=== PATIENT | male | born 1965 ===

== ENCOUNTER 2017-05-16 22:00 | Inpatient (IN) | payer MEDICARE, MEDICAID ==
[2017-05-16 22:10] VITALS: BMI 24.7
--- NOTE | 2017-05-16 22:30 | ED PDOC ---
Arrival/HPI - General Chief Complaint: Psychiatric Evaluation Time Seen by Provider: 05/16/17 22:14 Historian: Family - History of Present Illness Narrative History of Present Illness (Text): 05/16/17 22:26 Neptali Chase is a 51 year old male, with a history of seizures, dementia, and psychosis, presents to the emergency department for evaluation of bizarre behavior. According to family, patient as been acting bizarrely for past few days and agitated at times. Patient has elected not to speak, and has done this in the past. Denies fever, chills, chest pain, shortness of breath, nausea, vomiting, history of trauma, urinary symptoms, or any other complaints at this time. Time/Duration: < week (few days ) Symptom Onset: Gradual Severity Level: Mild Activities at Onset: Light Past Medical History - Provider Review Nursing Documentation Reviewed: Yes - Infectious Disease Hx of Infectious Diseases: None - Tetanus Immunization Tetanus Immunization: Unknown - Cardiac Hx Hypertension: Yes - Pulmonary Hx Tuberculosis: No - Neurological Hx Seizures: Yes - HEENT Hx HEENT Disorder: No - Renal Hx Renal Disorder: No - Endocrine/Metabolic Hx Endocrine Disorders: No - Hematological/Oncological Hx Cancer: No - Integumentary Hx Dermatological Disorder: No - Musculoskeletal/Rheumatological Hx Musculoskeletal Disorders: No Hx Falls: No - Gastrointestinal Hx Gastrointestinal Disorders: No - Genitourinary/Gynecological Hx Sexually Transmitted Diseases: No - Psychiatric Hx Depression: Yes Hx Substance Use: No - Surgical History Other/Comment: Hx of kidney sx - Anesthesia Hx Anesthesia: Yes Hx Anesthesia Reactions: No - Suicidal Assessment Feels Threatened In Home Enviroment: No Family/Social History - Physician Review Nursing Documentation Reviewed: Yes Family/Social History: No Known Family HX Smoking Status: Unknown If Ever Smoked Hx Alcohol Use: (pt is disoriented and unable to answers) Hx Substance Use: No Allergies/Home Meds Allergies/Adverse Reactions: Allergies No Known Allergies Allergy (Verified 09/27/16 19:17) Home Medications: Home Meds Medication Instructions Recorded Confirmed Lacosamide [Vimpat] 1 tab PO BID 05/16/17 05/16/17 Review of Systems - Physician Review All systems were reviewed & negative as marked: Yes - Review of Systems Constitutional: Normal. absent: Fatigue, Fevers Respiratory: Normal. absent: SOB, Cough, Sputum Cardiovascular: Normal. absent: Chest Pain, Palpitations Neurological: Normal. absent: Headache, Dizziness Psychiatric: Other (bizarre behavior, occationally agitated. ) Physical Exam Vital Signs Reviewed: Yes Vital Signs Temp Pulse Resp BP Pulse Ox 05/17/17 05:33 78 14 111/74 98 05/17/17 01:15 81 14 119/74 97 05/16/17 22:15 96.9 F L 142 H 22 179/119 H 97 Temperature: Afebrile Blood Pressure: Hypertensive Pulse: Tachycardic Respiratory Rate: Normal Appearance: Positive for: Non-Toxic Pain Distress: None Mental Status: Positive for: Agitated (agitated when confronted ) - Systems Exam Head: Present: Atraumatic, Normocephalic Pupils: Present: PERRL Extroacular Muscles: Present: EOMI Conjunctiva: Present: Normal Mouth: Present: Moist Mucous Membranes Neck: Present: Normal Range of Motion Respiratory/Chest: Present: Clear to Auscultation, Good Air Exchange. No: Respiratory Distress, Accessory Muscle Use Cardiovascular: Present: Regular Rate and Rhythm, Normal S1, S2. No: Murmurs Abdomen: Present: Normal Bowel Sounds. No: Tenderness, Distention, Peritoneal Signs Upper Extremity: Present: Normal Inspection. No: Cyanosis, Edema Lower Extremity: Present: Normal Inspection. No: Edema Neurological: Present: GCS=15, CN II-XII Intact, Speech Normal, Motor Func Grossly Intact, Normal Sensory Function Skin: Present: Warm, Dry, Normal Color. No: Rashes Psychiatric: Present: Alert, Oriented x 3, Agitated Medical Decision Making ED Course and Treatment: 05/16/17 22:34 Impression: A 51 year old male who presents to the emergency department for evaluation of bizarre behavior. Differential Diagnosis: Selective mutism vs. psychosis vs. dementia Plan: -- EKG -- Labs -- Alcohol level -- Drug Screen -- CXR -- Ativan -- Haldol -- Urinalysis Progress Notes: 05/17/17 01:38 Patient evaluated by PES, and case discussed with Dr. Slater. Patient to be admitted to the psychiatric unit, but requires signature from . However, is not in the ed to sign for the patient. Patient to be held in the ed until the can sign for admission. EKG interpreted by me: NSR @ 93bpm. No acute changes 05/17/17 06:29 Pt. was re evaluated by JEANINE Carr.Pt. signed in for admission as per PES. - Lab Interpretations Lab Results: 05/17/17 00:00 05/17/17 00:00 Lab Results 05/17/17 00:22: Urine Opiates Screen Negative, Urine Methadone Screen Negative, Ur Barbiturates Screen Negative, Ur Phencyclidine Scrn Negative, Ur Amphetamines Screen Negative, U Benzodiazepines Scrn Negative, U Oth Cocaine Metabols Negative, U Cannabinoids Screen Negative 05/17/17 00:22: Urine Color Yellow, Urine Appearance Sl cloudy, Urine pH 5.5, Ur Specific [place] >= 1.030, Urine Protein 100 H, Urine Glucose (UA) Negative, Urine Ketones Trace H, Urine Blood Negative, Urine Nitrate Negative, Urine Bilirubin Negative, Urine Urobilinogen 0.2, Ur Leukocyte Esterase Negative, Urine RBC 0 - 2, Urine WBC 0 - 2, Ur Epithelial Cells 0 - 2, Amorphous Sediment Few 05/17/17 00:00: Alcohol, Quantitative < 10 05/17/17 00:00: Sodium 142, Potassium 3.3 L, Chloride 110 H, Carbon Dioxide 19 L , Anion Gap 16, BUN 14, Creatinine 0.8, Est GFR ( Amer) > 60, Est GFR ( Non-Af Amer) > 60, Random Glucose 127 H, Calcium 9.5, Total Bilirubin 1.4 H, AST 38, ALT 64 H, Alkaline Phosphatase 103, Total Protein 8.0, Albumin 4.6, Globulin 3.4, Albumin/Globulin Ratio 1.4 05/17/17 00:00: WBC 10.2, RBC 4.85, Hgb 14.7, Hct 41.7 L, MCV 86.0, MCH 30.3, MCHC 35.3, RDW 13.4, Plt Count 203, MPV 9.5, Gran % 73.1 H, Lymph % (Auto) 18.6 L, [place] % (Auto) 8.0 H, Eos % (Auto) 0.2 L, Baso % (Auto) 0.1, Gran # 7.45 H, Lymph # 1.9, Cross # 0.8 H, Eos # 0.0, Baso # 0.01 I have reviewed the lab results: Yes - RAD Interpretation Radiology Orders: 05/16/17 22:30 CHEST PORTABLE [RAD] Stat - EKG Interpretation Interpreted by ED Physician: Yes Type: 12 lead EKG - Medication Orders Current Medication Orders: Discontinued Medications Haloperidol Lactate (Haldol) 5 mg IM STAT STA PRN Reason: Protocol Stop: 05/16/17 22:30 Last Admin: 05/16/17 23:22 Dose: 5 mg Lorazepam (Ativan) 2 mg IM ONCE ONE Stop: 05/16/17 22:30 Last Admin: 05/16/17 23:22 Dose: 2 mg - Scribe Statement The provider has reviewed the documentation as recorded by the Bev He Provider Attestation: All medical record entries made by the Bev were at my direction and personally dictated by me. I have reviewed the chart and agree that the record accurately reflects my personal performance of the history, physical exam, medical decision making, and the department course for this patient. I have also personally directed, reviewed, and agree with the discharge instructions and disposition. Disposition/Present on Arrival - Present on Arrival Any Indicators Present on Arrival: No History of DVT/PE: No History of Uncontrolled Diabetes: No Urinary Catheter: No History of Decub. Ulcer: No History Surgical Site Infection Following: None - Disposition Have Diagnosis and Disposition been Completed?: Yes Diagnosis: Depression, Cognitive and behavioral changes, Seizure disorder Disposition: HOSPITALIZED Disposition Time: 06:31 Patient Plan: Admission Condition: STABLE Referrals: Agusto Mai MD [Primary Care Provider] - Follow up with primary
[2017-05-17 00:08] LABS: BASO # 0.01 K/mm3 (0.0-2.0); BASO % 0.1 % (0.0-3.0); EOS % 0.2 % (1.5-5.0); GRAN # 7.45 (1.4-6.5); GRAN % 73.1 % (50.0-68.0); HEMOGLOBIN 14.7 gm/dL (14.0-18.0); LYMPH # 1.9 (1.2-3.4); LYMPH % 18.6 % (22.0-35.0); MEAN CORPUSCULAR HEMOGLOBIN 30.3 pg (25.0-35.0); MEAN CORPUSCULAR HGB CONC 35.3 g/dl (31.0-37.0); MEAN PLATELET VOLUME 9.5 fl (7.0-11.0); MONO # 0.8 (0.1-0.6); PLATELET COUNT 203 10^3/uL (120.0-450.0); RBC 4.85 10^6/uL (3.5-6.1); RED CELL DISTRIBUTION WIDTH 13.4 % (11.5-14.5); WHITE BLOOD COUNT 10.2 10^3/ul (4.5-11.0)
[2017-05-17 00:18] LABS: ALB/GLOB RATIO 1.4 (1.1-1.8); ALBUMIN 4.6 g/dL (3.0-4.8); ALT/SGPT 64 U/L (7-56); AST/SGOT 38 U/L (15-59); BLOOD UREA NITROGEN 14 mg/dL (7-21); CALCIUM 9.5 mg/dL (8.4-10.5); GFR AFRICAN-AMERICAN > 60; GFR NON-AFRICAN AMERICAN > 60
[2017-05-17 01:08] LABS: PH,URINE 5.5 (4.7-8.0); URINE BILIRUBIN NEGATIVE (NEGATIVE); URINE BLOOD NEGATIVE (NEGATIVE); URINE GLUCOSE (UA) NEGATIVE (NEGATIVE); URINE LEUKOCYTE ESTERASE NEGATIVE Leu/uL (NEGATIVE); URINE NITRATE NEGATIVE (NEGATIVE); URINE PROTEIN 100 mg/dL (<30 mg/dL); URINE UROBILINOGEN 0.2 E.U./dL (<1 E.U./dL)
[2017-05-17 01:19] LABS: BARBITURATES, UR NEGATIVE (NEGATIVE); BENZODIAZEPINES, UR NEGATIVE (NEGATIVE); OPIATES, UR NEGATIVE (NEGATIVE); PHENCYCLIDINE, UR NEGATIVE (NEGATIVE)
[2017-05-17 01:25] LABS: URINE APPEARANCE SL CLOUDY (CLEAR); URINE COLOR YELLOW (YELLOW)
[2017-05-17 01:31] LABS: URINE EPITHELIAL CELLS 0 - 2 /hpf (0-5); URINE RBC 0 - 2 /hpf (0-2); URINE WBC 0 - 2 /hpf (0-6)
[2017-05-17 01:32] LABS: URINE AMORPHOUS SEDIMENT FEW
[2017-05-17 07:37] VITALS: O2SAT 97
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
--- NOTE | 2017-05-17 08:46 | CARD ---
APPROVED REPORT EKG Measurement Heart [id number] <Conclusion> Normal sinus rhythm Minimal voltage criteria for LVH, may be normal variant Borderline ECG
--- NOTE | 2017-05-17 10:57 | RAD ---
HISTORY: medical clearance COMPARISON: No prior. FINDINGS: LUNGS: No active pulmonary disease. PLEURA: No significant pleural effusion identified, no pneumothorax apparent. CARDIOVASCULAR: Normal. OSSEOUS STRUCTURES: No significant abnormalities. VISUALIZED UPPER ABDOMEN: Normal. OTHER FINDINGS: None. IMPRESSION: No active disease.
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
[2017-05-18 08:55] LABS: GLUCOSE,FASTING 102 mg/dL (65-110); HDL CHOLESTEROL 27 mg/dL (29-60)
[2017-05-18 09:05] LABS: LDL CHOLESTEROL 162 mg/dL (0-129)
--- NOTE | 2017-05-18 09:08 | CP.PCM.CON ---
History of Present Illness - History of Present Illness History of Present Illness: Pt is being seen for evaluation for HTN and Dyslipidemia. He has no CP/SOB/N/V. He is admitted to the psych until for evaluation. Eating ok. Able to ambulate. Review of Systems - Review of Systems Systems not reviewed;Unavailable: Psychotic - Constitutional Constitutional: Fatigue, Lethargy. absent: Fever, Night Sweats, Sleep Apnea, Weight Gain - EENT Eyes: absent: Diplopia, Discharge, Dry Eye, Photophobia Ears: absent: Disequilibrium, Dizziness Nose/Mouth/Throat: absent: Nasal Discharge, Bleeding Gums, Change in Voice, Dry Mouth, Dysphagia - Cardiovascular Cardiovascular: absent: Claudication, Edema, Irregular Heart Rhythm, Leg Ulcers , Orthopnea - Respiratory Respiratory: absent: Cough, Dyspnea on Exertion - Gastrointestinal Gastrointestinal: absent: Abdominal Pain, Bloating, Early Satiety, Heartburn, Hematemesis, Temesmus - Genitourinary Genitourinary: absent: Hematuria, Urinary Incontinence, Urinary Frequency, Freq UTI, Bladder Distension - Musculoskeletal Musculoskeletal: absent: Atrophy, Loss of Height, Muscle Cramps, Muscle Weakness , Myalgias, Neck Pain - Integumentary Integumentary: absent: Hirsutism, Lesions, New Lesions, Pruritus, Skin Ulcer, Wounds - Neurological Neurological: absent: Convulsions, Disequilibrium, Numbness, Lack of Coordination, Loss of Vision, Radicular Pain, Restless Legs - Psychiatric Psychiatric: Behavioral Changes, Difficulty Concentrating, Irritability. absent : Homicidal Ideation, Panic Attacks, Paranoia, Suicidal Ideation - Endocrine Endocrine: absent: Cold Intolorance, Excessive Sweating, Fatigue, Polyphagia - Hematologic/Lymphatic Hematologic: absent: Easy Bleeding, Lymphadenopathy Past Patient History - Infectious Disease Hx of Infectious Diseases: None - Tetanus Immunizations Tetanus Immunization: Unknown - Past Medical History & Family History Past Medical History?: Yes - Past Social History Smoking Status: Unknown If Ever Smoked - CARDIAC Hx Hypertension: Yes - PULMONARY Hx Tuberculosis: No - NEUROLOGICAL Hx Seizures: Yes - HEENT Hx HEENT Problems: No - RENAL Hx Chronic Kidney Disease: No - ENDOCRINE/METABOLIC Hx Endocrine Disorders: No - HEMATOLOGICAL/ONCOLOGICAL Hx Cancer: No - INTEGUMENTARY Hx Dermatological Problems: No - MUSCULOSKELETAL/RHEUMATOLOGICAL Hx Musculoskeletal Disorders: No Hx Falls: No - GASTROINTESTINAL Hx Gastrointestinal Disorders: No - GENITOURINARY/GYNECOLOGICAL Hx Sexually Transmitted Disorders: No - PSYCHIATRIC Hx Substance Use: No - SURGICAL HISTORY Other/Comment: Hx of kidney sx - ANESTHESIA Hx Anesthesia: Yes Hx Anesthesia Reactions: No Meds Allergies/Adverse Reactions: Allergies Allergy/AdvReac Type Severity Reaction Status Date / Time No Known Allergies Allergy Verified 09/27/16 19:17 - Medications Medications: Current Medications Levetiracetam (Keppra) 500 mg PO BID [facility] Last Admin: 05/18/17 08:52 Dose: 500 mg Lorazepam (Ativan) 1 mg PO Q4H PRN; Protocol PRN Reason: Anxiety Last Admin: 05/17/17 08:23 Dose: 1 mg Lorazepam (Ativan) 2 mg IM Q6H PRN; Protocol PRN Reason: agitation/seizures Risperidone (Risperdal Tab) 1 mg PO HS [facility] PRN Reason: Protocol Last Admin: 05/17/17 23:57 Dose: Not Given Risperidone (Risperdal Tab) 0.5 mg PO BID [facility] PRN Reason: Protocol Last Admin: 05/18/17 08:52 Dose: 0.5 mg Ziprasidone (Geodon Inj) 10 mg IM Q6H PRN; Protocol PRN Reason: severe agitation Physical Exam - Constitutional Appears: Well - Head Exam Head Exam: ATRAUMATIC, NORMAL INSPECTION, NORMOCEPHALIC - Eye Exam Eye Exam: EOMI, Normal appearance, PERRL. absent: Nystagmus Pupil Exam: absent: Miosis, Mydriatic - ENT Exam ENT Exam: Mucous Membranes Moist, Normal Exam - Neck Exam Neck exam: Positive for: Normal Inspection - Respiratory Exam Respiratory Exam: Clear to Auscultation Bilateral, NORMAL BREATHING PATTERN. absent: Prolonged Expiratory Phase, Stridor - Cardiovascular Exam Cardiovascular Exam: REGULAR RHYTHM - GI/Abdominal Exam GI & Abdominal Exam: Normal Bowel Sounds, Soft. absent: Guarding, Hypoactive Bowel Sounds, Organomegaly, Tenderness - Exam External exam: NORMAL EXTERNAL EXAM - Extremities Exam Extremities exam: Positive for: normal inspection. Negative for: tenderness - Neurological Exam Neurological exam: CN II-XII Intact, Normal Gait, Reflexes Normal - Psychiatric Exam Psychiatric exam: Normal Affect, Normal Mood - Skin Skin Exam: Normal Color Results - Vital Signs Recent Vital Signs: Last Vital Signs Temp 96.9 F L 05/16/17 22:15 Pulse 68 05/17/17 16:00 Resp 15 05/17/17 07:00 BP 131/85 05/17/17 16:00 Pulse Ox 97 05/17/17 07:00 - Labs Result Diagrams: 05/17/17 00:00 05/17/17 00:00 Assessment & Plan - Assessment and Plan (Free Text) Assessment: HTN Dyslipidemia Psychosis Plan: Pt feels well. No pain. Meds reviewed. Labs reviewed. BP controlled not on meds. Should follow for now unless BP increases. - Date & Time Date: 05/18/17 Time: 09:08
[2017-05-18 09:15] LABS: FREE T4 1.36 ng/dL (0.78-2.19)
--- NOTE | 2017-05-18 16:22 | CP.PCM.CON ---
History of Present Illness - History of Present Illness History of Present Illness: Mr. Chase is a 51-year-old man with a past medical history of seizure disorder and episodes of psychosis who apparently has had a recent episode of mutism and was admitted for treatment and therapy. Neurology was consulted since the patient has a history of seizure disorder. The patient was at first difficult to engage, but then was able to confirm that he has a history of seizure disorder, but does not recall the last time he had a seizure. He takes Keppra regularly. Denied any other symptoms or side-effects. He was not sure if he has taken other anti-epileptics in the past. I told him that Keppra can sometimes cause psychosis and it can cause irritability and I recommended another medication that has mood stabilizing as well as AED properties, such as lamictal, trileptal or depakote. Review of Systems - Review of Systems All systems: reviewed and no additional remarkable complaints except Past Patient History - Infectious Disease Hx of Infectious Diseases: None - Tetanus Immunizations Tetanus Immunization: Unknown - Past Medical History & Family History Past Medical History?: Yes - Past Social History Smoking Status: Unknown If Ever Smoked - CARDIAC Hx Hypertension: Yes - PULMONARY Hx Tuberculosis: No - NEUROLOGICAL Hx Seizures: Yes - HEENT Hx HEENT Problems: No - RENAL Hx Chronic Kidney Disease: No - ENDOCRINE/METABOLIC Hx Endocrine Disorders: No - HEMATOLOGICAL/ONCOLOGICAL Hx Cancer: No - INTEGUMENTARY Hx Dermatological Problems: No - MUSCULOSKELETAL/RHEUMATOLOGICAL Hx Musculoskeletal Disorders: No Hx Falls: No - GASTROINTESTINAL Hx Gastrointestinal Disorders: No - GENITOURINARY/GYNECOLOGICAL Hx Sexually Transmitted Disorders: No - PSYCHIATRIC Hx Substance Use: No - SURGICAL HISTORY Other/Comment: Hx of kidney sx - ANESTHESIA Hx Anesthesia: Yes Hx Anesthesia Reactions: No Meds Allergies/Adverse Reactions: Allergies Allergy/AdvReac Type Severity Reaction Status Date / Time No Known Allergies Allergy Verified 09/27/16 19:17 - Medications Medications: Current Medications Levetiracetam (Keppra) 500 mg PO BID [facility] Last Admin: 05/18/17 08:52 Dose: 500 mg Lorazepam (Ativan) 1 mg PO Q4H PRN; Protocol PRN Reason: Anxiety Last Admin: 05/17/17 08:23 Dose: 1 mg Lorazepam (Ativan) 2 mg IM Q6H PRN; Protocol PRN Reason: agitation/seizures Risperidone (Risperdal Tab) 1 mg PO HS [facility] PRN Reason: Protocol Last Admin: 05/17/17 23:57 Dose: Not Given Risperidone (Risperdal Tab) 0.5 mg PO BID [facility] PRN Reason: Protocol Last Admin: 05/18/17 08:52 Dose: 0.5 mg Ziprasidone (Geodon Inj) 10 mg IM Q6H PRN; Protocol PRN Reason: severe agitation Physical Exam - Constitutional Appears: Well - Head Exam Head Exam: ATRAUMATIC, NORMAL INSPECTION, NORMOCEPHALIC - Eye Exam Eye Exam: EOMI, Normal appearance, PERRL - ENT Exam ENT Exam: Mucous Membranes Moist, Normal Exam - Respiratory Exam Respiratory Exam: Clear to Auscultation Bilateral, NORMAL BREATHING PATTERN - Cardiovascular Exam Cardiovascular Exam: REGULAR RHYTHM, +S1, +S2 - GI/Abdominal Exam GI & Abdominal Exam: Normal Bowel Sounds, Soft. absent: Tenderness - Rectal Exam Rectal Exam: Deferred - Extremities Exam Extremities exam: Positive for: normal inspection - Back Exam Back exam: NORMAL INSPECTION - Neurological Exam Neurological exam: Alert, CN II-XII Intact, Normal Gait, Oriented x3, Reflexes Normal - Expanded Neurological Exam Expanded Patient oriented to: person, place, time Cranial nerves: EOM's Intact: Normal Ataxia: No Cerebellar Function: Finger to Nose: Normal Upper motor neuron: Babinski Sign: Normal Sensory exam: Lower Extremity Light Touch: Normal, Lower Extremity Pin Prick: Normal, Upper Extremity Light Touch: Normal, Upper Extremity Pin Prick: Normal Neuro motor strength exam: Left Upper Extremity: 5, Right Upper Extremity: 5, Left Lower Extremity: 5, Right Lower Extremity: 5 DTR: Achilles Tendon Left: 2+, Achilles Tendon Right: 2+, Bicep Left: 2+, Bicep Right: 2+, Brachioradialis Left: 2+, Brachioradialis Right: 2+, Patellar Left: 2 +, Patellar Right: 2+, Tricep Left: 2+, Tricep Right: 2+ - Psychiatric Exam Psychiatric exam: Normal Affect, Normal Mood - Skin Skin Exam: Dry, Intact, Normal Color, Warm Results - Vital Signs Recent Vital Signs: Last Vital Signs Temp 98.5 F 05/18/17 10:17 Pulse 53 L 05/18/17 10:17 Resp 20 05/18/17 10:17 BP 150/99 H 05/18/17 10:17 Pulse Ox 97 05/17/17 07:00 - Labs Result Diagrams: 05/17/17 00:00 05/17/17 00:00 Labs: Laboratory Results - last 24 hr 05/18/17 05/18/17 08:00 08:30 Fasting Glucose 102 Triglycerides 151 Cholesterol 206 H LDL Cholesterol Direct 162 H HDL Cholesterol 27 L Free T4 1.36 TSH 3rd Generation 0.42 L Assessment & Plan (1) Seizure Assessment and Plan: The patient has a history of epilepsy, but does not recall the last time he had a seizure. The side-effects of Keppra may be contributing to his mood and psychiatric illness. I recommend switching to lamictal and slowly titrating up. Start with 25 mg BID and increase Q weekly up to 200 mg BID for a therapeutic dose. Keppra may be decreased to 250 mg BID once lamictal is up to 50 mg BID, and Keppra may be discontinued when lamictal is up to 200 mg BID. Watch for skin rash and/or other side-effects of lamictal and D/C if they are concerning. Thank you. Status: Chronic Priority: Medium
[2017-05-19] MEDS ORDERED: VIMPAT 100MG TAB PO SCH (16:00)
--- NOTE | 2017-05-19 22:55 | PCM.PYCHPN ---
Psychiatric Progress Note - Psychiatric Progress Note Patient seen today, length of contact: 25min Patient Chief Complaint: Agitation Problems Identified/Issues Discussed: Patient had been seen in office. They disorganized and agitated state. Presently sedate but lacking "focus Medical Problems: Has history of seizure disorder DSM 5 Symptoms Update: Interviewed in treatment team. Somewhat and atraumatic. Earlier had been bedridden and noncommunicative. In treatment team at times disorganized. Spoke of desire to go to [facility]. His aware should he has had a seizure disorder. Will presently switch to previous anti-seizure medication Case reviewed with . Medication Change: Yes Medical Record Reviewed: Yes Consults ordered or reviewed: Reviewed Mental Status Examination - Cognitive Function Orientation: Person, Place Memory: Impaired Attention: Poor Concentration: Poor Fund of Knowledge: Poor Decription of patient's judgement and insights: Impairment - Mood Mood: Depressed - Affect Affect: Constricted, Flat - Speech Speech: Soft - Formal Thought Process Formal Thought Process: Paranoia (thought he was attacked by two people), Other (confused, disorganized) - Suicidal Ideation Suicidal Ideation: No - Homicidal Ideation Homicidal Ideation: No Goal/Treatment Plan - Goal/Treatment Plan Need for Continued Stay: Remain at risks for inpatient hospitalization, Severe depression anxiety, Discharge may exacerbated symptoms, Severe functional impairment Progress Toward Problem(s) and Goals/Treatment Plan: Patient able to verbally interact which is an improvement over her earlier presentation
[2017-05-20] MEDS: VIMPAT 100MG TAB PO SCH ×2 (08:47→15:45)
--- NOTE | 2017-05-20 15:48 | PCM.PYCHPN ---
Psychiatric Progress Note - Psychiatric Progress Note Patient seen today, length of contact: 25min Patient Chief Complaint: Agitation Problems Identified/Issues Discussed: Patient had been seen in office. They disorganized and agitated state. Presently sedate but lacking "focus Medical Problems: Has history of seizure disorder DSM 5 Symptoms Update: patient labile both emotionally and cognitively is capable of brief meaningful focused interactions but often wanders A, poorly communicative Medication Change: No Medical Record Reviewed: No Mental Status Examination - Cognitive Function Orientation: Person, Place Memory: Impaired Attention: Poor Concentration: Poor Fund of Knowledge: Poor Decription of patient's judgement and insights: Impairment - Mood Mood: Depressed - Affect Affect: Constricted, Flat - Speech Speech: Soft - Formal Thought Process Formal Thought Process: Paranoia (thought he was attacked by two people), Other (confused, disorganized) - Suicidal Ideation Suicidal Ideation: No - Homicidal Ideation Homicidal Ideation: No Goal/Treatment Plan - Goal/Treatment Plan Need for Continued Stay: Remain at risks for inpatient hospitalization, Severe depression anxiety, Discharge may exacerbated symptoms, Severe functional impairment Progress Toward Problem(s) and Goals/Treatment Plan: Patient able to verbally interact which is an improvement over her earlier presentation
[2017-05-20] MEDS ORDERED: Nitroglycerin 2% Ointment Foilpak UD TOP STA (19:36)
--- NOTE | 2017-05-20 19:39 | CP.PCM.PN ---
Subjective - Date & Time of Evaluation Date of Evaluation: 05/20/17 Time of Evaluation: 19:38 - Subjective Subjective: Patient was seen at bedside because his BP was 190/130 and his abdomen was distended as per family members. Patient has no complaints. Mother gives history of HTN , he was on one blood pressure medication for 2-3 years about 2-3 years ago. 51 year old male admitted for bizarre behaviour and agitation. Has PMH of seizure, dementia, psychosis. Patient was seen in TV room. Repeat BP is 114/82. Bladder scan was 85 CC . Objective - Vital Signs/Intake and Output Vital Signs (last 24 hours): Temp Pulse Resp BP Pulse Ox 97.6 F 67 20 181/100 H 97 05/20/17 07:17 05/20/17 16:25 05/20/17 07:17 05/20/17 16:25 05/17/17 07:00 - Medications Medications: Current Medications Clonidine HCl (Catapres) 0.3 mg PO STAT STA Stop: 05/20/17 19:37 Home Med (Home Med) 1 unit PO BID [facility] Last Admin: 05/20/17 15:45 Dose: 1 unit Lisinopril (Zestril) 20 mg PO DAILY [facility] Last Admin: 05/20/17 15:45 Dose: 20 mg Lorazepam (Ativan) 1 mg PO Q4H PRN; Protocol PRN Reason: Anxiety Last Admin: 05/17/17 08:23 Dose: 1 mg Lorazepam (Ativan) 2 mg IM Q6H PRN; Protocol PRN Reason: agitation/seizures Nitroglycerin (Nitro-Bid 2% Oint) 1 ea TOP STAT STA Stop: 05/20/17 19:37 Risperidone (Risperdal Tab) 1 mg PO HS [facility] PRN Reason: Protocol Last Admin: 05/19/17 21:22 Dose: 1 mg Risperidone (Risperdal Tab) 0.5 mg PO BID [facility] PRN Reason: Protocol Last Admin: 05/20/17 15:44 Dose: 0.5 mg Ziprasidone (Geodon Inj) 10 mg IM Q6H PRN; Protocol PRN Reason: severe agitation - Labs Labs: Laboratory Last Values WBC 10.2 10^3/ul (4.5-11.0) 05/17/17 00:00 RBC 4.85 10^6/uL (3.5-6.1) 05/17/17 00:00 Hgb 14.7 gm/dL (14.0-18.0) 05/17/17 00:00 Hct 41.7 % (42.0-52.0) L 05/17/17 00:00 MCV 86.0 fL (80.0-105.0) 05/17/17 00:00 MCH 30.3 pg (25.0-35.0) 05/17/17 00:00 MCHC 35.3 g/dl (31.0-37.0) 05/17/17 00:00 RDW 13.4 % (11.5-14.5) 05/17/17 00:00 Plt Count 203 10^3/uL (120.0-450.0) 05/17/17 00:00 MPV 9.5 fl (7.0-11.0) 05/17/17 00:00 Gran % 73.1 % (50.0-68.0) H 05/17/17 00:00 Lymph % (Auto) 18.6 % (22.0-35.0) L 05/17/17 00:00 [place] % (Auto) 8.0 % (1.0-6.0) H 05/17/17 00:00 Eos % (Auto) 0.2 % (1.5-5.0) L 05/17/17 00:00 Baso % (Auto) 0.1 % (0.0-3.0) 05/17/17 00:00 Gran # 7.45 (1.4-6.5) H 05/17/17 00:00 Lymph # 1.9 (1.2-3.4) 05/17/17 00:00 [place] # 0.8 (0.1-0.6) H 05/17/17 00:00 Eos # 0.0 (0.0-0.7) 05/17/17 00:00 Baso # 0.01 K/mm3 (0.0-2.0) 05/17/17 00:00 Sodium 142 mmol/L (132-148) 05/17/17 00:00 Potassium 3.3 mmol/L (3.6-5.0) L 05/17/17 00:00 Chloride 110 mmol/L (98-107) H 05/17/17 00:00 Carbon Dioxide 19 mmol/L (21-33) L 05/17/17 00:00 Anion Gap 16 (10-20) 05/17/17 00:00 BUN 14 mg/dL (7-21) 05/17/17 00:00 Creatinine 0.8 mg/dL (0.5-1.4) 05/17/17 00:00 Est GFR ( Amer) > 60 05/17/17 00:00 Est GFR (Non-Af Amer) > 60 05/17/17 00:00 Random Glucose 127 mg/dL (70-110) H 05/17/17 00:00 Fasting Glucose 102 mg/dL (65-110) 05/18/17 08:30 Calcium 9.5 mg/dL (8.4-10.5) 05/17/17 00:00 Total Bilirubin 1.4 mg/dL (0.2-1.3) H 05/17/17 00:00 AST 38 U/L (15-59) 05/17/17 00:00 ALT 64 U/L (7-56) H 05/17/17 00:00 Alkaline Phosphatase 103 U/L (38-133) 05/17/17 00:00 Total Protein 8.0 g/dL (5.8-8.3) 05/17/17 00:00 Albumin 4.6 g/dL (3.0-4.8) 05/17/17 00:00 Globulin 3.4 gm/dL 05/17/17 00:00 Albumin/Globulin Ratio 1.4 (1.1-1.8) 05/17/17 00:00 Triglycerides 151 mg/dL (35-160) 05/18/17 08:30 Cholesterol 206 mg/dL (130-200) H 05/18/17 08:30 LDL Cholesterol Direct 162 mg/dL (0-129) H 05/18/17 08:30 HDL Cholesterol 27 mg/dL (29-60) L 05/18/17 08:30 Free T4 1.36 ng/dL (0.78-2.19) 05/18/17 08:00 TSH 3rd Generation 0.42 mIU/mL (0.46-4.68) L 05/18/17 08:00 Urine Color Yellow (YELLOW) 05/17/17 00:22 Urine Appearance Sl cloudy (CLEAR) 05/17/17 00:22 Urine pH 5.5 (4.7-8.0) 05/17/17 00:22 Ur Specific [place] >= 1.030 (1.005-1.035) 05/17/17 00:22 Urine Protein 100 mg/dL (<30 mg/dL) H 05/17/17 00:22 Urine Glucose (UA) Negative mg/dL (NEGATIVE) 05/17/17 00:22 Urine Ketones Trace mg/dL (NEGATIVE) H 05/17/17 00:22 Urine Blood Negative (NEGATIVE) 05/17/17 00: Urine Nitrate Negative (NEGATIVE) 05/17/17 00:22 Urine Bilirubin Negative (NEGATIVE) 05/17/17 00:22 Urine Urobilinogen 0.2 E.U./dL (<1 E.U./dL) 05/17/17 00:22 Ur Leukocyte Esterase Negative Ronnie/uL (NEGATIVE) 05/17/17 00:22 Urine RBC 0 - 2 /hpf (0-2) 05/17/17 00:22 Urine WBC 0 - 2 /hpf (0-6) 05/17/17 00:22 Ur Epithelial Cells 0 - 2 /hpf (0-5) 05/17/17 00:22 Amorphous Sediment Few 05/17/17 00:22 Urine Opiates Screen Negative (NEGATIVE) 05/17/17 00:22 Urine Methadone Screen Negative (NEGATIVE) 05/17/17 00:22 Ur Barbiturates Screen Negative (NEGATIVE) 05/17/17 00:22 Ur Phencyclidine Scrn Negative (NEGATIVE) 05/17/17 00:22 Ur Amphetamines Screen Negative (NEGATIVE) 05/17/17 00:22 U Benzodiazepines Scrn Negative (NEGATIVE) 05/17/17 00:22 U Oth Cocaine Metabols Negative (NEGATIVE) 05/17/17 00:22 U Cannabinoids Screen Negative (NEGATIVE) 05/17/17 00:22 Alcohol, Quantitative < 10 mg/dL (0-10) 05/17/17 00:00 RPR Nonreactive (NONREACTIVE) 05/18/17 08:00 - Constitutional Appears: Well, No Acute Distress - Head Exam Head Exam: ATRAUMATIC, NORMAL INSPECTION, NORMOCEPHALIC - Eye Exam Eye Exam: Normal appearance - ENT Exam ENT Exam: Normal External Ear Exam - Neck Exam Neck Exam: Normal Inspection - Respiratory Exam Respiratory Exam: NORMAL BREATHING PATTERN - Cardiovascular Exam Cardiovascular Exam: absent: JVD - GI/Abdominal Exam GI & Abdominal Exam: Distended (? Mild abdominal distension.), Soft (Yes.), Normal Bowel Sounds. absent: Bruit, Firm, Guarding, Rigid, Tenderness, Hernia, Mass, Organomegaly, Pulsatile Mass, Rebound - Rectal Exam Rectal Exam: Deferred - Exam Additional comments: Above deferred. - Extremities Exam Extremities Exam: Normal Inspection - Back Exam Back Exam: CVA tenderness (L) - Neurological Exam Neurological Exam: Alert, Oriented x3 - Psychiatric Exam Psychiatric exam: Normal Affect - Skin Skin Exam: Normal Color Assessment and Plan - Assessment and Plan (Free Text) Assessment: Elevated blood pressure reading. Hx of HTN. Obesity. Agitation. Bizarre behaviour. Dementia? Psuchosis. Seizure. Plan: Clonidine 0.3 mg PO stat.-not given. Nitropaste 2" topically stat.-not given. Bladder scan stat.----------------> 85 ml. CBC,CMP, TSH, lipid profile,(on record) ,EKG,CXR.
[2017-05-21] MEDS: VIMPAT 100MG TAB PO SCH ×2 (08:30→17:33)
--- NOTE | 2017-05-21 09:57 | CARD ---
APPROVED REPORT EKG Measurement Heart [id number] MI [id number] <Conclusion> Normal sinus rhythm RSR' or QR pattern in V1 suggests right ventricular conduction delay Minimal voltage criteria for LVH, may be normal variant Prolonged QTc Increased T wave voltage V 4 - 6 c/w ECG 05/16/17
--- NOTE | 2017-05-21 12:34 | PCM.PYCHPN ---
Psychiatric Progress Note - Psychiatric Progress Note Patient seen today, length of contact: 30min Patient Chief Complaint: "........" Problems Identified/Issues Discussed: attempted to discuss: Suicide/ homicide prevention, past psychiatric h/o, current psychiatric symptoms, medical problems, risk/benefits and alternatives of medications, medications compliance, coping strategies, substance abuse h/o, relapse prevention, importance of follow up with psychiatrist and therapist, discharge plan, but pt was laying with his eyes closed. Medical Problems: Hypertension, seizure disorder, dyslipidemia? Diagnostic Results: 05/17/17 00:00 05/17/17 00:00 Lab Results 05/18/17 08:30: Fasting Glucose 102, Triglycerides 151, Cholesterol 206 H, LDL Cholesterol Direct 162 H, HDL Cholesterol 27 L 05/18/17 08:00: RPR Nonreactive 05/18/17 08:00: Free T4 1.36, TSH 3rd Generation 0.42 L 05/17/17 00:22: Urine Opiates Screen Negative, Urine Methadone Screen Negative, Ur Barbiturates Screen Negative, Ur Phencyclidine Scrn Negative, Ur Amphetamines Screen Negative, U Benzodiazepines Scrn Negative, U Oth Cocaine Metabols Negative, U Cannabinoids Screen Negative 05/17/17 00:22: Urine Color Yellow, Urine Appearance Sl cloudy, Urine pH 5.5, Ur Specific [place] >= 1.030, Urine Protein 100 H, Urine Glucose (UA) Negative, Urine Ketones Trace H, Urine Blood Negative, Urine Nitrate Negative, Urine Bilirubin Negative, Urine Urobilinogen 0.2, Ur Leukocyte Esterase Negative, Urine RBC 0 - 2, Urine WBC 0 - 2, Ur Epithelial Cells 0 - 2, Amorphous Sediment Few 05/17/17 00:00: Alcohol, Quantitative < 10 05/17/17 00:00: Sodium 142, Potassium 3.3 L, Chloride 110 H, Carbon Dioxide 19 L , Anion Gap 16, BUN 14, Creatinine 0.8, Est GFR ( Amer) > 60, Est GFR ( Non-Af Amer) > 60, Random Glucose 127 H, Calcium 9.5, Total Bilirubin 1.4 H, AST 38, ALT 64 H, Alkaline Phosphatase 103, Total Protein 8.0, Albumin 4.6, Globulin 3.4, Albumin/Globulin Ratio 1.4 05/17/17 00:00: WBC 10.2, RBC 4.85, Hgb 14.7, Hct 41.7 L, MCV 86.0, MCH 30.3, MCHC 35.3, RDW 13.4, Plt Count 203, MPV 9.5, Gran % 73.1 H, Lymph % (Auto) 18.6 L, Barth[place]omew % (Auto) 8.0 H, Eos % (Auto) 0.2 L, Baso % (Auto) 0.1, Gran # 7.45 H, Lymph # 1.9, Bartholomew # 0.8 H, Eos # 0.0, Baso # 0.01 Vital Signs Temp Pulse Resp BP Pulse Ox 05/21/17 06:45 97.6 F 60 20 125/78 05/21/17 06:43 97.6 F 60 20 125/78 05/20/17 20:05 116/70 05/20/17 19:55 67 114/82 05/20/17 19:40 123 H 190/139 H 05/20/17 16:25 67 181/100 H 05/20/17 15:45 67 181/100 H 05/20/17 07:17 97.6 F 50 L 20 141/94 H 05/19/17 16:00 50 L 109/83 05/19/17 07:43 97.1 F L 48 L 20 116/78 05/18/17 16:33 56 L 93/60 L 05/18/17 10:17 98.5 F 53 L 20 150/99 H 05/18/17 08:06 97.6 F 70 20 109/63 05/18/17 07:00 98.5 F 53 L 20 150/99 H 05/17/17 16:00 68 131/85 05/17/17 07:00 83 15 108/77 97 05/17/17 05:33 78 14 111/74 98 05/17/17 01:15 81 14 119/74 97 05/16/17 22:15 96.9 F L 142 H 22 179/119 H 97 DSM 5 Symptoms Update: shortly pt is 51yo Male with h/o ? dementia and seizures, previous psych admissions, pt was brought in by ambulance for evaluation of agitated, disorganized, psychotic behavior. the emergency room patient was agitated, patient needed to have Haldol 5 mg as well as Ativan 5 mg IM. Pt was admitted under 's service, this check writer is covering for him. pt was seen in his room, this check writer is familiar with this pt from the initial evaluation. as per staff pt still has disorganized behavior, pt is confused, wondering behavior. pt was seen by Neurologist, currently pt is Vimpat (Lacosamide) 100 mg twice pt was seen by as well. this check writer attempted to speak to the pt, pt was mute, not talking, was pretending that he is sleeping, was opening his eyes, but closing back again. pt has some catatonic features. will add ativan to his medicine regiment. pt tolerates meds well, no side effects observed or reported, AIMS 0, no EPS Impression: DSM 5 Diagnosis: psychosis nos r/o dementia r/o delirium Medication Change: Yes (ativan ) Medical Record Reviewed: Yes (consults, labs, reports) Consults ordered or reviewed: medical and neurology consult reviewed Mental Status Examination - Cognitive Function Orientation: Person, Place Memory: Impaired Attention: Poor Concentration: Poor Fund of Knowledge: Poor - Mood Mood: Depressed - Affect Affect: Constricted, Flat - Speech Speech: Soft - Formal Thought Process Formal Thought Process: Paranoia (thought he was attacked by two people), Other (confused, disorganized) - Suicidal Ideation Suicidal Ideation: No - Homicidal Ideation Homicidal Ideation: No Goal/Treatment Plan - Goal/Treatment Plan Need for Continued Stay: Remain at risks for inpatient hospitalization, Severe depression anxiety, Discharge may exacerbated symptoms, Severe functional impairment Progress Toward Problem(s) and Goals/Treatment Plan: milieu, structure, supportive therapy Lacosamide [Vimpat] 100mg po BID for seizures risperdal 0.5 mg 2 times a day started, Risperdal1 mg at the nighttime for psychosis Ativan 0.5mg bid scheduled for catatonic symptoms Collaterals from the obtained medical consult was called Dr. Mann Neurology consultation by funeral workers evaluation We'll follow-up on labs will discuss case with Dr. Slater Estimated Date of D/C: 05/27/17 (will monitor closely)
[2017-05-22 08:21] LABS: BASO # 0.02 K/mm3 (0.0-2.0); BASO % 0.3 % (0.0-3.0); EOS # 0.2 (0.0-0.7); EOS % 2.1 % (1.5-5.0); GRAN # 4.48 (1.4-6.5); GRAN % 58.3 % (50.0-68.0); HEMOGLOBIN 13.9 gm/dL (14.0-18.0); LYMPH # 2.4 (1.2-3.4); LYMPH % 30.6 % (22.0-35.0); MEAN CELL VOLUME 87.4 fL (80.0-105.0); MEAN CORPUSCULAR HEMOGLOBIN 29.6 pg (25.0-35.0); MEAN CORPUSCULAR HGB CONC 33.8 g/dl (31.0-37.0); MONO # 0.7 (0.1-0.6); MONO % 8.7 % (1.0-6.0); PLATELET COUNT 200 10^3/uL (120.0-450.0); RED CELL DISTRIBUTION WIDTH 13.2 % (11.5-14.5); WHITE BLOOD COUNT 7.7 10^3/ul (4.5-11.0)
[2017-05-22 08:39] LABS: ALB/GLOB RATIO 1.4 (1.1-1.8); ALBUMIN 4.1 g/dL (3.0-4.8); ALT/SGPT 67 U/L (7-56); AST/SGOT 45 U/L (15-59); BLOOD UREA NITROGEN 16 mg/dL (7-21); CALCIUM 9.3 mg/dL (8.4-10.5); GFR AFRICAN-AMERICAN > 60; GFR NON-AFRICAN AMERICAN > 60
[2017-05-22] MEDS: VIMPAT 100MG TAB PO SCH ×2 (08:50→15:43)
--- NOTE | 2017-05-22 09:03 | RAD ---
HISTORY: HTN COMPARISON: 05/17/2017 TECHNIQUE: Chest PA and lateral FINDINGS: LUNGS: No active pulmonary disease. PLEURA: No significant pleural effusion identified. No pneumothorax apparent. CARDIOVASCULAR: Normal. OSSEOUS STRUCTURES: No significant abnormalities. VISUALIZED UPPER ABDOMEN: Normal. OTHER FINDINGS: None. IMPRESSION: No active disease.
--- NOTE | 2017-05-22 11:57 | PCM.PYCHPN ---
Psychiatric Progress Note - Psychiatric Progress Note Patient seen today, length of contact: 30min Patient Chief Complaint: "I am feeling fine, I know I am in the hospital" Problems Identified/Issues Discussed: attempted to discuss: Suicide/ homicide prevention, past psychiatric h/o, current psychiatric symptoms, medical problems, risk/benefits and alternatives of medications, medications compliance, coping strategies, substance abuse h/o, relapse prevention, importance of follow up with psychiatrist and therapist, discharge plan, but pt was laying with his eyes closed. Medical Problems: Hypertension, seizure disorder, dyslipidemia? Diagnostic Results: 05/17/17 00:00 05/17/17 00:00 Lab Results 05/18/17 08:30: Fasting Glucose 102, Triglycerides 151, Cholesterol 206 H, LDL Cholesterol Direct 162 H, HDL Cholesterol 27 L 05/18/17 08:00: RPR Nonreactive 05/18/17 08:00: Free T4 1.36, TSH 3rd Generation 0.42 L 05/17/17 00:22: Urine Opiates Screen Negative, Urine Methadone Screen Negative, Ur Barbiturates Screen Negative, Ur Phencyclidine Scrn Negative, Ur Amphetamines Screen Negative, U Benzodiazepines Scrn Negative, U Oth Cocaine Metabols Negative, U Cannabinoids Screen Negative 05/17/17 00:22: Urine Color Yellow, Urine Appearance Sl cloudy, Urine pH 5.5, Ur Specific [place] >= 1.030, Urine Protein 100 H, Urine Glucose (UA) Negative, Urine Ketones Trace H, Urine Blood Negative, Urine Nitrate Negative, Urine Bilirubin Negative, Urine Urobilinogen 0.2, Ur Leukocyte Esterase Negative, Urine RBC 0 - 2, Urine WBC 0 - 2, Ur Epithelial Cells 0 - 2, Amorphous Sediment Few 05/17/17 00:00: Alcohol, Quantitative < 10 05/17/17 00:00: Sodium 142, Potassium 3.3 L, Chloride 110 H, Carbon Dioxide 19 L , Anion Gap 16, BUN 14, Creatinine 0.8, Est GFR ( Amer) > 60, Est GFR ( Non-Af Amer) > 60, Random Glucose 127 H, Calcium 9.5, Total Bilirubin 1.4 H, AST 38, ALT 64 H, Alkaline Phosphatase 103, Total Protein 8.0, Albumin 4.6, Globulin 3.4, Albumin/Globulin Ratio 1.4 05/17/17 00:00: WBC 10.2, RBC 4.85, Hgb 14.7, Hct 41.7 L, MCV 86.0, MCH 30.3, MCHC 35.3, RDW 13.4, Plt Count 203, MPV 9.5, Gran % 73.1 H, Lymph % (Auto) 18.6 L, [place] % (Auto) 8.0 H, Eos % (Auto) 0.2 L, Baso % (Auto) 0.1, Gran # 7.45 H, Lymph # 1.9, [place] # 0.8 H, Eos # 0.0, Baso # 0.01 Vital Signs Temp Pulse Resp BP Pulse Ox 05/21/17 06:45 97.6 F 60 20 125/78 05/21/17 06:43 97.6 F 60 20 125/78 05/20/17 20:05 116/70 05/20/17 19:55 67 114/82 05/20/17 19:40 123 H 190/139 H 05/20/17 16:25 67 181/100 H 05/20/17 15:45 67 181/100 H 05/20/17 07:17 97.6 F 50 L 20 141/94 H 05/19/17 16:00 50 L 109/83 05/19/17 07:43 97.1 F L 48 L 20 116/78 05/18/17 16:33 56 L 93/60 L 05/18/17 10:17 98.5 F 53 L 20 150/99 H 05/18/17 08:06 97.6 F 70 20 109/63 05/18/17 07:00 98.5 F 53 L 20 150/99 H 05/17/17 16:00 68 131/85 05/17/17 07:00 83 15 108/77 97 05/17/17 05:33 78 14 111/74 98 05/17/17 01:15 81 14 119/74 97 05/16/17 22:15 96.9 F L 142 H 22 179/119 H 97 Temp Pulse Resp BP Pulse Ox 98.4 F 55 L 20 133/91 H 97 05/22/17 06:48 05/22/17 06:48 05/22/17 06:48 05/22/17 06:48 05/17/17 07:00 DSM 5 Symptoms Update: shortly pt is 51yo Male with h/o ? dementia and seizures, previous psych admissions, pt was brought in by ambulance for evaluation of agitated, disorganized, psychotic behavior. the emergency room patient was agitated, patient needed to have Haldol 5 mg as well as Ativan 5 mg IM. Pt was admitted under 's service, this fha underwriter is covering for him. pt was seen in his room, this fha underwriter is familiar with this pt from the initial evaluation. this fha underwriter gave scheduled dose of ativan because pt was in catatonic stage, today pt is more verbal, but still very disorganized, for example pt tried to eat from the empty cup or tried to put spoon into the milk box, was redirected by staff. pt has some improvement with his presentation, pt was more verbal today, pt said that he knows that he is in the hospital and he is "fine", yesterday pt was just looking at this fha underwriter was not able to talk, had wondering behavior. pt was seen by Neurologist, currently pt is Vimpat (Lacosamide) 100 mg twice pt was seen by as well. pt tolerates meds well, no side effects observed or reported, AIMS 0, no EPS Impression: DSM 5 Diagnosis: psychosis nos r/o dementia r/o delirium Medication Change: Yes (ativan and risperdal increased) Medical Record Reviewed: Yes (consults, labs, reports) Consults ordered or reviewed: medical and neurology consult reviewed Mental Status Examination - Cognitive Function Orientation: Person, Place Memory: Impaired Attention: Poor Concentration: Poor Fund of Knowledge: Poor - Mood Mood: Depressed - Affect Affect: Constricted, Flat - Speech Speech: Soft - Formal Thought Process Formal Thought Process: Paranoia (thought he was attacked by two people), Other (confused, disorganized) - Suicidal Ideation Suicidal Ideation: No - Homicidal Ideation Homicidal Ideation: No Goal/Treatment Plan - Goal/Treatment Plan Need for Continued Stay: Remain at risks for inpatient hospitalization, Severe depression anxiety, Discharge may exacerbated symptoms, Severe functional impairment Progress Toward Problem(s) and Goals/Treatment Plan: milieu, structure, supportive therapy Lacosamide [Vimpat] 100mg po BID for seizures risperdal will be increased to 1mg tid for psychosis Ativan 0.5mg tid scheduled for catatonic symptoms Collaterals from the obtained medical consult was called Dr. Mann Neurology consultation by workers compensation coordinator evaluation We'll follow-up on labs will discuss case with Dr. Slater Estimated Date of D/C: 05/27/17 (will monitor closely)
[2017-05-23 07:16] LABS: HEMOGLOBIN 13.9 gm/dL (14.0-18.0); MEAN CELL VOLUME 86.8 fL (80.0-105.0); MEAN CORPUSCULAR HGB CONC 34.6 g/dl (31.0-37.0); MEAN PLATELET VOLUME 9.7 fl (7.0-11.0); RBC 4.63 10^6/uL (3.5-6.1); RED CELL DISTRIBUTION WIDTH 13.2 % (11.5-14.5); WHITE BLOOD COUNT 8.1 10^3/ul (4.5-11.0)
[2017-05-23 07:37] LABS: ALB/GLOB RATIO 1.2 (1.1-1.8); ALBUMIN 3.8 g/dL (3.0-4.8); ALT/SGPT 69 U/L (7-56); AST/SGOT 39 U/L (15-59); BLOOD UREA NITROGEN 16 mg/dL (7-21); GFR AFRICAN-AMERICAN > 60; GFR NON-AFRICAN AMERICAN > 60
[2017-05-23] MEDS: VIMPAT 100MG TAB PO SCH ×2 (13:06→19:00)
--- NOTE | 2017-05-23 18:15 | PCM.PYCHPN ---
Psychiatric Progress Note - Psychiatric Progress Note Patient seen today, length of contact: 30min Patient Chief Complaint: Agitation Problems Identified/Issues Discussed: Patient had been seen in office. They disorganized and agitated state. Presently sedate but lacking "focus Medical Problems: Has history of seizure disorder DSM 5 Symptoms Update: Reviewed events of weekend. Patient remains problematic. Withdrawn. Poor eye contact. Poorly communicative. Provides little insight. Have increased respiradal to 2 mg twice a day Medication Change: Yes (ativan and risperdal increased) Medical Record Reviewed: Yes (consults, labs, reports) Mental Status Examination - Cognitive Function Orientation: Person, Place Memory: Impaired Attention: Poor Concentration: Poor Fund of Knowledge: Poor - Mood Mood: Depressed - Affect Affect: Constricted, Flat - Speech Speech: Soft - Formal Thought Process Formal Thought Process: Paranoia (thought he was attacked by two people), Other (confused, disorganized) - Suicidal Ideation Suicidal Ideation: No - Homicidal Ideation Homicidal Ideation: No Goal/Treatment Plan - Goal/Treatment Plan Need for Continued Stay: Remain at risks for inpatient hospitalization, Severe depression anxiety, Discharge may exacerbated symptoms, Severe functional impairment Progress Toward Problem(s) and Goals/Treatment Plan: Patient able to verbally interact which is an improvement over her earlier presentation patient remains poorly communicative, lacking in insight. 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
--- NOTE | 2017-05-24 11:34 | PCM.PYCHPN ---
Psychiatric Progress Note - Psychiatric Progress Note Patient seen today, length of contact: 30min Patient Chief Complaint: Agitation Problems Identified/Issues Discussed: Patient had been seen in office. They disorganized and agitated state. Presently sedate but lacking "focus Medical Problems: Has history of seizure disorder DSM 5 Symptoms Update: Remains problematic. Poorly communicative today and seems to want to sleep. Respiratory had been increased to 2 mg a.m. and at bedtime starting yesterday Patient is incapable of group interaction as noted by nursing but remains basically isolative and poorly communicative Medication Change: Yes (ativan and risperdal increased) Medical Record Reviewed: Yes (consults, labs, reports) Mental Status Examination - Cognitive Function Orientation: Person, Place Memory: Impaired Attention: Poor Concentration: Poor Fund of Knowledge: Poor Decription of patient's judgement and insights: Poor - Mood Mood: Depressed - Affect Affect: Constricted, Flat - Speech Speech: Soft - Formal Thought Process Formal Thought Process: Paranoia (thought he was attacked by two people), Other (confused, disorganized) - Suicidal Ideation Suicidal Ideation: No - Homicidal Ideation Homicidal Ideation: No Goal/Treatment Plan - Goal/Treatment Plan Need for Continued Stay: Remain at risks for inpatient hospitalization, Severe depression anxiety, Discharge may exacerbated symptoms, Severe functional impairment Progress Toward Problem(s) and Goals/Treatment Plan: Patient able to verbally interact which is an improvement over her earlier presentation patient remains poorly communicative, lacking in insight. 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 We'll try to increase level of socialization and goal directedness. Have increased antipsychotic dosage yesterday. Estimated Date of D/C: 05/27/17 (will monitor closely)
[2017-05-24] MEDS: VIMPAT 100MG TAB PO SCH ×2 (17:55→18:04)
[2017-05-25] MEDS: VIMPAT 100MG TAB PO SCH ×2 (08:57→17:19)
--- NOTE | 2017-05-25 23:34 | PCM.PYCHPN ---
Psychiatric Progress Note - Psychiatric Progress Note Patient seen today, length of contact: 30min Patient Chief Complaint: Agitation Problems Identified/Issues Discussed: Patient had been seen in office. They disorganized and agitated state. Presently sedate but lacking "focus Medical Problems: Has history of seizure disorder DSM 5 Symptoms Update: remains labile Medication Change: No (ativan and risperdal increased) Medical Record Reviewed: Yes (consults, labs, reports) Consults ordered or reviewed: Reviewed Mental Status Examination - Cognitive Function Orientation: Person, Place Memory: Impaired Attention: Poor Concentration: Poor Fund of Knowledge: Poor Decription of patient's judgement and insights: Poor - Mood Mood: Depressed - Affect Affect: Constricted, Flat - Speech Speech: Soft - Formal Thought Process Formal Thought Process: Paranoia (thought he was attacked by two people), Other (confused, disorganized) - Suicidal Ideation Suicidal Ideation: No - Homicidal Ideation Homicidal Ideation: No Goal/Treatment Plan - Goal/Treatment Plan Need for Continued Stay: Remain at risks for inpatient hospitalization, Severe depression anxiety, Discharge may exacerbated symptoms, Severe functional impairment Progress Toward Problem(s) and Goals/Treatment Plan: Patient able to verbally interact which is an improvement over her earlier presentation patient remains poorly communicative, lacking in insight. 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 We'll try to increase level of socialization and goal directedness. Have increased antipsychotic dosage yesterday. Estimated Date of D/C: 05/27/17 (will monitor closely)
[2017-05-26] MEDS: VIMPAT 100MG TAB PO SCH ×2 (08:14→17:46)
--- NOTE | 2017-05-26 18:45 | PCM.PYCHPN ---
Psychiatric Progress Note - Psychiatric Progress Note Patient seen today, length of contact: 30min Patient Chief Complaint: Agitation Problems Identified/Issues Discussed: Patient had been seen in office. They disorganized and agitated state. Presently sedate but lacking "focus Medical Problems: Has history of seizure disorder DSM 5 Symptoms Update: Remains problematic. This organized. 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 Will start on Aricept Medication Change: Yes (Above started Aricept) Medical Record Reviewed: Yes (consults, labs, reports) Consults ordered or reviewed: Reviewed Mental Status Examination - Cognitive Function Orientation: Person, Place Memory: Impaired Attention: Poor Concentration: Poor Fund of Knowledge: Poor Decription of patient's judgement and insights: Poor - Mood Mood: Depressed - Affect Affect: Constricted, Flat - Speech Speech: Soft - Formal Thought Process Formal Thought Process: Paranoia (thought he was attacked by two people), Other (confused, disorganized) - Suicidal Ideation Suicidal Ideation: No - Homicidal Ideation Homicidal Ideation: No Goal/Treatment Plan - Goal/Treatment Plan Need for Continued Stay: Remain at risks for inpatient hospitalization, Severe depression anxiety, Discharge may exacerbated symptoms, Severe functional impairment Progress Toward Problem(s) and Goals/Treatment Plan: Patient able to verbally interact which is an improvement over her earlier presentation patient remains poorly communicative, lacking in insight. 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 We'll try to increase level of socialization and goal directedness. Have increased antipsychotic dosage yesterday. We'll continue to assess behavior behavioral repertoire of this patient will start on Aricept Estimated Date of D/C: 05/27/17 (will monitor closely)
[2017-05-27] MEDS: VIMPAT 100MG TAB PO SCH ×2 (08:58→16:36)
[2017-05-28] MEDS: VIMPAT 100MG TAB PO SCH ×2 (10:09→17:22)
--- NOTE | 2017-05-28 12:17 | PCM.PYCHPN ---
Psychiatric Progress Note - Psychiatric Progress Note Patient seen today, length of contact: 30min Patient Chief Complaint: "Me too, I hope, He-He-He" (pt replied on questions how does he feel today, disorganized, psychotic, answers not related to the questions being asked). Problems Identified/Issues Discussed: attempted to discuss: Suicide/ homicide prevention, past psychiatric h/o, current psychiatric symptoms, medical problems, risk/benefits and alternatives of medications, medications compliance, coping strategies, substance abuse h/o, relapse prevention, importance of follow up with psychiatrist and therapist, discharge plan, but pt was laying with his eyes closed. Medical Problems: Hypertension, seizure disorder, dyslipidemia? Diagnostic Results: 05/17/17 00:00 05/17/17 00:00 Lab Results 05/18/17 08:30: Fasting Glucose 102, Triglycerides 151, Cholesterol 206 H, LDL Cholesterol Direct 162 H, HDL Cholesterol 27 L 05/18/17 08:00: RPR Nonreactive 05/18/17 08:00: Free T4 1.36, TSH 3rd Generation 0.42 L 05/17/17 00:22: Urine Opiates Screen Negative, Urine Methadone Screen Negative, Ur Barbiturates Screen Negative, Ur Phencyclidine Scrn Negative, Ur Amphetamines Screen Negative, U Benzodiazepines Scrn Negative, U Oth Cocaine Metabols Negative, U Cannabinoids Screen Negative 05/17/17 00:22: Urine Color Yellow, Urine Appearance Sl cloudy, Urine pH 5.5, Ur Specific [place] >= 1.030, Urine Protein 100 H, Urine Glucose (UA) Negative, Urine Ketones Trace H, Urine Blood Negative, Urine Nitrate Negative, Urine Bilirubin Negative, Urine Urobilinogen 0.2, Ur Leukocyte Esterase Negative, Urine RBC 0 - 2, Urine WBC 0 - 2, Ur Epithelial Cells 0 - 2, Amorphous Sediment Few 05/17/17 00:00: Alcohol, Quantitative < 10 05/17/17 00:00: Sodium 142, Potassium 3.3 L, Chloride 110 H, Carbon Dioxide 19 L , Anion Gap 16, BUN 14, Creatinine 0.8, Est GFR ( Amer) > 60, Est GFR ( Non-Af Amer) > 60, Random Glucose 127 H, Calcium 9.5, Total Bilirubin 1.4 H, AST 38, ALT 64 H, Alkaline Phosphatase 103, Total Protein 8.0, Albumin 4.6, Globulin 3.4, Albumin/Globulin Ratio 1.4 05/17/17 00:00: WBC 10.2, RBC 4.85, Hgb 14.7, Hct 41.7 L, MCV 86.0, MCH 30.3, MCHC 35.3, RDW 13.4, Plt Count 203, MPV 9.5, Gran % 73.1 H, Lymph % (Auto) 18.6 L, [place] % (Auto) 8.0 H, Eos % (Auto) 0.2 L, Baso % (Auto) 0.1, Gran # 7.45 H, Lymph # 1.9, [place] # 0.8 H, Eos # 0.0, Baso # 0.01 Vital Signs Temp Pulse Resp BP Pulse Ox 05/21/17 06:45 97.6 F 60 20 125/78 05/21/17 06:43 97.6 F 60 20 125/78 05/20/17 20:05 116/70 05/20/17 19:55 67 114/82 05/20/17 19:40 123 H 190/139 H 05/20/17 16:25 67 181/100 H 05/20/17 15:45 67 181/100 H 05/20/17 07:17 97.6 F 50 L 20 141/94 H 05/19/17 16:00 50 L 109/83 05/19/17 07:43 97.1 F L 48 L 20 116/78 05/18/17 16:33 56 L 93/60 L 05/18/17 10:17 98.5 F 53 L 20 150/99 H 05/18/17 08:06 97.6 F 70 20 109/63 05/18/17 07:00 98.5 F 53 L 20 150/99 H 05/17/17 16:00 68 131/85 05/17/17 07:00 83 15 108/77 97 05/17/17 05:33 78 14 111/74 98 05/17/17 01:15 81 14 119/74 97 05/16/17 22:15 96.9 F L 142 H 22 179/119 H 97 Temp Pulse Resp BP Pulse Ox 98.4 F 55 L 20 133/91 H 97 05/22/17 06:48 05/22/17 06:48 05/22/17 06:48 05/22/17 06:48 05/17/17 07:00 DSM 5 Symptoms Update: shortly pt is 51yo Male with h/o ? dementia and seizures, previous psych admissions, pt was brought in by ambulance for evaluation of agitated, disorganized, psychotic behavior. the emergency room patient was agitated, patient needed to have Haldol 5 mg as well as Ativan 5 mg IM. Pt was admitted under 's service, this sql report writer is covering for him. pt was seen in his room, this sql report writer is familiar with this pt from the initial evaluation. pt remains to be disorganized, psychotic, "Me too, I hope, He-He-He " (pt replied on questions how does he feel today, answers not related to the questions being asked). pt was seen by Neurologist, currently pt is Vimpat (Lacosamide) 100 mg twice pt was seen by as well. pt tolerates meds well, no side effects observed or reported, AIMS 0, no EPS Impression: DSM 5 Diagnosis: psychosis nos r/o dementia r/o delirium Medication Change: Yes (meds adjusted by ) Medical Record Reviewed: Yes (consults, labs, reports) Consults ordered or reviewed: medical and neurology consult reviewed Mental Status Examination - Cognitive Function Orientation: Person, Place Memory: Impaired Attention: Poor Concentration: Poor Fund of Knowledge: Poor - Mood Mood: Depressed - Affect Affect: Constricted, Flat - Speech Speech: Soft - Formal Thought Process Formal Thought Process: Paranoia (thought he was attacked by two people), Other (confused, disorganized) - Suicidal Ideation Suicidal Ideation: No - Homicidal Ideation Homicidal Ideation: No Goal/Treatment Plan - Goal/Treatment Plan Need for Continued Stay: Remain at risks for inpatient hospitalization, Severe depression anxiety, Discharge may exacerbated symptoms, Severe functional impairment Progress Toward Problem(s) and Goals/Treatment Plan: milieu, structure, supportive therapy Lacosamide [Vimpat] 100mg po BID for seizures risperdal was increased to 5mg daily by for psychosis Ativan as needed pt was started on aricept medical consult was called Dr. Mann Neurology consultation by precision layout worker evaluation We'll follow-up on labs will discuss case with Dr. Slater Estimated Date of D/C: 06/03/17 (will monitor closely)
[2017-05-29 07:38] VITALS: TEMP 97.9
[2017-05-29] MEDS: VIMPAT 100MG TAB PO SCH ×2 (08:23→16:25)
--- NOTE | 2017-05-29 12:27 | PCM.PYCHPN ---
Psychiatric Progress Note - Psychiatric Progress Note Patient seen today, length of contact: 30min Patient Chief Complaint: "I am good, I am fine" Problems Identified/Issues Discussed: attempted to discuss: Suicide/ homicide prevention, past psychiatric h/o, current psychiatric symptoms, medical problems, risk/benefits and alternatives of medications, medications compliance, coping strategies, substance abuse h/o, relapse prevention, importance of follow up with psychiatrist and therapist, discharge plan, but pt was laying with his eyes closed. Medical Problems: Hypertension, seizure disorder, dyslipidemia? Diagnostic Results: 05/17/17 00:00 05/17/17 00:00 Lab Results 05/18/17 08:30: Fasting Glucose 102, Triglycerides 151, Cholesterol 206 H, LDL Cholesterol Direct 162 H, HDL Cholesterol 27 L 05/18/17 08:00: RPR Nonreactive 05/18/17 08:00: Free T4 1.36, TSH 3rd Generation 0.42 L 05/17/17 00:22: Urine Opiates Screen Negative, Urine Methadone Screen Negative, Ur Barbiturates Screen Negative, Ur Phencyclidine Scrn Negative, Ur Amphetamines Screen Negative, U Benzodiazepines Scrn Negative, U Oth Cocaine Metabols Negative, U Cannabinoids Screen Negative 05/17/17 00:22: Urine Color Yellow, Urine Appearance Sl cloudy, Urine pH 5.5, Ur Specific [place] >= 1.030, Urine Protein 100 H, Urine Glucose (UA) Negative, Urine Ketones Trace H, Urine Blood Negative, Urine Nitrate Negative, Urine Bilirubin Negative, Urine Urobilinogen 0.2, Ur Leukocyte Esterase Negative, Urine RBC 0 - 2, Urine WBC 0 - 2, Ur Epithelial Cells 0 - 2, Amorphous Sediment Few 05/17/17 00:00: Alcohol, Quantitative < 10 05/17/17 00:00: Sodium 142, Potassium 3.3 L, Chloride 110 H, Carbon Dioxide 19 L , Anion Gap 16, BUN 14, Creatinine 0.8, Est GFR ( Amer) > 60, Est GFR ( Non-Af Amer) > 60, Random Glucose 127 H, Calcium 9.5, Total Bilirubin 1.4 H, AST 38, ALT 64 H, Alkaline Phosphatase 103, Total Protein 8.0, Albumin 4.6, Globulin 3.4, Albumin/Globulin Ratio 1.4 05/17/17 00:00: WBC 10.2, RBC 4.85, Hgb 14.7, Hct 41.7 L, MCV 86.0, MCH 30.3, MCHC 35.3, RDW 13.4, Plt Count 203, MPV 9.5, Gran % 73.1 H, Lymph % (Auto) 18.6 L, [place] % (Auto) 8.0 H, Eos % (Auto) 0.2 L, Baso % (Auto) 0.1, Gran # 7.45 H, Lymph # 1.9, [place] # 0.8 H, Eos # 0.0, Baso # 0.01 Vital Signs Temp Pulse Resp BP Pulse Ox 05/21/17 06:45 97.6 F 60 20 125/78 05/21/17 06:43 97.6 F 60 20 125/78 05/20/17 20:05 116/70 05/20/17 19:55 67 114/82 05/20/17 19:40 123 H 190/139 H 05/20/17 16:25 67 181/100 H 05/20/17 15:45 67 181/100 H 05/20/17 07:17 97.6 F 50 L 20 141/94 H 05/19/17 16:00 50 L 109/83 05/19/17 07:43 97.1 F L 48 L 20 116/78 05/18/17 16:33 56 L 93/60 L 05/18/17 10:17 98.5 F 53 L 20 150/99 H 05/18/17 08:06 97.6 F 70 20 109/63 05/18/17 07:00 98.5 F 53 L 20 150/99 H 05/17/17 16:00 68 131/85 05/17/17 07:00 83 15 108/77 97 05/17/17 05:33 78 14 111/74 98 05/17/17 01:15 81 14 119/74 97 05/16/17 22:15 96.9 F L 142 H 22 179/119 H 97 Temp Pulse Resp BP Pulse Ox 98.4 F 55 L 20 133/91 H 97 05/22/17 06:48 05/22/17 06:48 05/22/17 06:48 05/22/17 06:48 05/17/17 07:00 Temp Pulse Resp BP Pulse Ox 97.9 F 66 20 126/70 97 05/29/17 07:37 05/29/17 08:22 05/29/17 07:37 05/29/17 08:22 05/17/17 07:00 DSM 5 Symptoms Update: shortly pt is 51yo Male with h/o ? dementia and seizures, previous psych admissions, pt was brought in by ambulance for evaluation of agitated, disorganized, psychotic behavior. the emergency room patient was agitated, patient needed to have Haldol 5 mg as well as Ativan 5 mg IM. Pt was admitted under 's service, this health underwriter is covering for him. pt was seen at the dinning area, pt is confused, came for breakfast and went to the table without his tray, pt is giving superficial answers like "I am fine, I am good", pt remains to be disorganized, psychotic, at times answers not related to the questions what asked. pt was seen by Neurologist, currently pt is Vimpat (Lacosamide) 100 mg twice pt was seen by as well. pt tolerates meds well, no side effects observed or reported, AIMS 0, no EPS as per staff needs encouragement to take shower, pt still resistant, pt is confused, but no behavioral issues, pt is compliant with meds. Impression: DSM 5 Diagnosis: psychosis nos r/o dementia r/o delirium Medication Change: Yes (meds adjusted by ) Medical Record Reviewed: Yes (consults, labs, reports) Consults ordered or reviewed: medical and neurology consult reviewed Mental Status Examination - Cognitive Function Orientation: Person, Place Memory: Impaired Attention: Poor Concentration: Poor Fund of Knowledge: Poor - Mood Mood: Depressed - Affect Affect: Constricted, Flat - Speech Speech: Soft - Formal Thought Process Formal Thought Process: Paranoia (thought he was attacked by two people), Other (confused, disorganized) - Suicidal Ideation Suicidal Ideation: No - Homicidal Ideation Homicidal Ideation: No Goal/Treatment Plan - Goal/Treatment Plan Need for Continued Stay: Remain at risks for inpatient hospitalization, Severe depression anxiety, Discharge may exacerbated symptoms, Severe functional impairment Progress Toward Problem(s) and Goals/Treatment Plan: milieu, structure, supportive therapy Lacosamide [Vimpat] 100mg po BID for seizures risperdal was increased to 5mg daily by for psychosis Ativan as needed pt was started on aricept medical consult was called Dr. Mann Neurology consultation by log raft worker evaluation We'll follow-up on labs will discuss case with Dr. Slater Estimated Date of D/C: 06/03/17 (will monitor closely)
[2017-05-30 07:25] VITALS: BP 134/100; PULSE 90
[2017-05-30 07:28] VITALS: RESP 22
[2017-05-30] MEDS: VIMPAT 100MG TAB PO SCH (09:37)
--- NOTE | 2017-05-30 09:58 | PN ---
DATE: 05/28/2017 SUBJECTIVE: The patient is a 51-year-old enigmatic male within a ray of behavior perturbations. He is alert, disoriented to times, poor historian. He tells me that he is not getting better, but can tell me what is the matter with him. He has poor insight and poor judgment and at times acts bizarrely. Nursing feels, he is however displaying "better variety of emotions" and is capable now of keeping a short conversation with staff especially when speaking Macedonian. However, it is noted that his attention span is very short. I have concern that the possibility that the patient is suffering from a dementia with behavioral features and I have started him on Aricept. He is presently being maintained psychotropically on the Aricept 5 mg and Risperdal 2 mg b.i.d. I will presently increase his Risperdal to 5 mg per day. PHYSICAL EXAMINATION: VITAL SIGNS: Blood pressure 109/78, pulse 56, temperature 97.6, and respiratory rate 20. LABORATORY DATA: Hemoglobin 13.9/hematocrit 40.2. ALT on 05/23/2017 was elevated at 69. Cholesterol elevated to 206. The patient is also on Zestril 20 mg daily. Geovanny Slater MD/ PhD
--- NOTE | 2017-05-30 11:54 | PCM.BM ---
<ChaparroPattiRadha - Last Filed: 05/30/17 11:50> Treatment Plan Problems - Problems identified on initial assessmt Delusions Date Initiated: 05/17/17 Time Initiated: 08:42 Assessment reference: NA Status: Active Priority: 1 Comment: Believes he is being chased by a man with a gun Altered Thought Process Date Initiated: 05/17/17 Time Initiated: 08:42 Assessment reference: NA Status: Active Priority: 2 Comment: Trouble focusing and formulating sentences, tangential, thought blocking Altered Sleep Patterns Date Initiated: 05/17/17 Time Initiated: 08:42 Date resolved: 05/30/17 Assessment reference: NA Status: Active Priority: 3 Comment: Reported poor sleep by family members Medication Nonadherence Date Initiated: 05/17/17 Time Initiated: :42 Date resolved: 05/30/17 Assessment reference: NA Status: Active Priority: 4 Comment: Reports that he only takes his medicine "sometimes" - Milieu Protocol Maintain good personal hygiene: daily Encourage regular showers, daily Remind patient to perform daily oral care, daily Assist patient to perform ADL's Maintain personal safety: every shift Educate patient to report safety concerns to staff, every shift Monitor environment for contraband/sharps Medication safety: Monitor for expected outcome, potential side effects: every shift, Assess barriers to learning: every shift, Assess readiness for medication education: every shift Milieu Narrative: milieu, structure, supportive therapy Lacosamide [Vimpat] 100mg po BID for seizures risperdal was increased to 5mg daily by for psychosis Ativan as needed pt was started on aricept medical consult was called Dr. Mann Neurology consultation by medicine worker evaluation We'll follow-up on labs will discuss case with Dr. Slater Family Contact Family involvement: Family/SO is involved Family contact: Patient agrees to contact Family contact name: Nina Chase([phone]) spouse Family contacted how many times per week?: 2 - Goals for Treatment Patient goals for treatment: "To go home." Discharge/Continuing Care - Education Needs Education Needs: Patient Medication, Patient Diagnosis/Disease Process, Patient Coping Skills, Patient Community resources, Patient Activities of Daily Living, Patient Nutrition, Patient Health Practices/Safety, Patient Personal Hygiene/ Grooming, Patient Aftercare Safety Plan - Discharge Discharge Criteria: Tolerates medication w/o severe side effects, Free of paranoid thoughts, Normal sleep pattern, Ability to care for self, Reduction of target symptoms Discharge to:: Home - Additional Comments milieu, structure, supportive therapy Lacosamide [Vimpat] 100mg po BID for seizures risperdal was increased to 5mg daily by for psychosis Ativan as needed pt was started on aricept medical consult was called Dr. Mann Neurology consultation by medicine worker evaluation We'll follow-up on labs will discuss case with Dr. Slater - Treatment Team Participation Patient/Family/SO Statement: milieu, structure, supportive therapy Lacosamide [Vimpat] 100mg po BID for seizures risperdal was increased to 5mg daily by for psychosis Ativan as needed pt was started on aricept medical consult was called Dr. Mann Neurology consultation by medicine worker evaluation We'll follow-up on labs will discuss case with Dr. Slater <Geovanny Slater H - Last Filed: 05/30/17 12:07> - Diagnosis (1) Confusion and disorientation Status: Chronic Interventions: 05/30/17 12:08 Redirection and medication management (2) Agitation Status: Acute Interventions: 05/30/17 12:08 Redirection and medication management. <Abby Cortez - Last Filed: 05/30/17 15:23> Discharge/Continuing Care - Education Needs Education Needs: Family Medication, Family Diagnosis/Disease Process, Family Coping Skills, Family Community resources, Family Activities of Daily Living, Patient Medication, Patient Diagnosis/Disease Process, Patient Coping Skills, Patient Community resources, Patient Activities of Daily Living - Discharge Discharge Criteria: Tolerates medication w/o severe side effects, Free of agitation <Alyson Villafuerte - Last Filed: 05/30/17 16:10>
== END 2017-05-30 17:30 | disposition home or self-care (01) | DRG 885 ==
LOC: ED 22:00 → ERH 05-17 06:31 → PSYC 05-17 07:46
PROVIDERS: ADMIT Psychiatry & Neurology Addiction Medicine; ATTEND Psychiatry & Neurology Addiction Medicine
DX: F29 Unspecified psychosis not due to a substance or known physiological condition (principal); F03.90 Unspecified dementia, unspecified severity, without behavioral disturbance, psychotic disturbance, mood disturbance, and anxiety; R47.01 Aphasia; F32.89 Other specified depressive episodes; I10 Essential (primary) hypertension; E66.9 Obesity, unspecified; E78.5 Hyperlipidemia, unspecified; G40.909 Epilepsy, unspecified, not intractable, without status epilepticus; Z79.899 Other long term (current) drug therapy; Z82.49 Family history of ischemic heart disease and other diseases of the circulatory system; Z91.19 Patient's noncompliance with other medical treatment and regimen; R41.0 Disorientation, unspecified

== ENCOUNTER 2017-06-24 05:59 | Inpatient (IN) | payer MEDICARE, MEDICAID ==
[2017-06-24 05:59] VITALS: BMI 24.7
--- NOTE | 2017-06-24 06:37 | ED PDOC ---
Arrival/HPI - General Chief Complaint: Psychiatric Evaluation Time Seen by Provider: 06/24/17 06:33 Historian: Spouse - History of Present Illness Narrative History of Present Illness (Text): 06/24/17 06:34 51-year-old male brought in by his for psychiatric evaluation. Patient's states that he has a history of schizophrenia, that he has been attempting to leave the house frequently, insomnia, having worsening schizophrenia symptoms. Patient is a poor historian, but denies any suicidal or homicidal ideations. States his psychiatrist is Dr. Slater Past Medical History - Provider Review Nursing Documentation Reviewed: Yes - Infectious Disease Hx of Infectious Diseases: None - Tetanus Immunization Tetanus Immunization: Unknown - Cardiac Hx Cardiac Disorders: Yes Hx Hypertension: Yes - Pulmonary Hx Respiratory Disorders: No Hx Tuberculosis: No - Neurological Hx Neurological Disorder: Yes Hx Seizures: Yes - HEENT Hx HEENT Disorder: No - Renal Hx Renal Disorder: No - Endocrine/Metabolic Hx Endocrine Disorders: No - Hematological/Oncological Hx Blood Disorders: No Hx Cancer: No - Integumentary Hx Dermatological Disorder: No - Musculoskeletal/Rheumatological Hx Musculoskeletal Disorders: No Hx Falls: No - Gastrointestinal Hx Gastrointestinal Disorders: No - Genitourinary/Gynecological Hx Genitourinary Disorders: No Hx Sexually Transmitted Diseases: No - Psychiatric Hx Psychophysiologic Disorder: Yes Hx Depression: Yes Hx Schizophrenia: Yes Hx Substance Use: No - Surgical History Other/Comment: Hx of kidney sx - Anesthesia Hx Anesthesia: Yes Hx Anesthesia Reactions: No - Suicidal Assessment Feels Threatened In Home Enviroment: No Family/Social History Family/Social History: Unknown Family HX Smoking Status: Unknown If Ever Smoked Hx Alcohol Use: No Hx Substance Use: No Allergies/Home Meds Allergies/Adverse Reactions: Allergies No Known Allergies Allergy (Verified 06/24/17 06:20) Home Medications: Home Meds Medication Instructions Recorded Confirmed Lacosamide [Vimpat] 1 tab PO BID 05/16/17 06/24/17 Atorvastatin [Lipitor] 40 mg PO HS 06/24/17 06/24/17 amLODIPine [Norvasc] 5 mg PO DAILY 06/24/17 06/24/17 Review of Systems - Review of Systems Systems not reviewed;Unavailable: Psychotic Physical Exam Appearance: Positive for: Non-Toxic, Comfortable Mental Status: No: Agitated, Lethargic - Systems Exam Head: Present: Atraumatic, Normocephalic Pupils: Present: PERRL Extroacular Muscles: Present: EOMI Conjunctiva: Present: Normal Mouth: Present: Moist Mucous Membranes Neck: Present: Normal Range of Motion Respiratory/Chest: Present: Clear to Auscultation, Good Air Exchange. No: Respiratory Distress, Accessory Muscle Use Cardiovascular: Present: Regular Rate and Rhythm, Normal S1, S2. No: Murmurs Abdomen: Present: Normal Bowel Sounds. No: Tenderness, Distention, Peritoneal Signs Back: Present: Normal Inspection Upper Extremity: Present: Normal Inspection. No: Cyanosis, Edema Lower Extremity: Present: Normal Inspection. No: Edema Neurological: Present: GCS=15, CN II-XII Intact, Other (No focal neurological deficits) Skin: Present: Warm, Dry, Normal Color. No: Rashes Psychiatric: Present: Alert. No: Anxious, Agitated Medical Decision Making ED Course and Treatment: 06/24/17 06:38 51-year-old male with history of schizophrenia, presents for medical clearance and psychiatric evaluation. Patient's states that he has been trying to leave the house frequently, has not been sleeping well. Labs, imaging ordered Will call PES, and medically clear 06/24/17 07:00 patient signed out to Dr. Pena in stable condition, pending labs, PES eval, dispo - RAD Interpretation Radiology Orders: 06/24/17 06:33 CHEST PORTABLE [RAD] Stat Disposition/Present on Arrival - Present on Arrival Any Indicators Present on Arrival: No History of DVT/PE: No History of Uncontrolled Diabetes: No Urinary Catheter: No History of Decub. Ulcer: No History Surgical Site Infection Following: None - Disposition Have Diagnosis and Disposition been Completed?: Yes Diagnosis: Psychotic disorder Disposition Time: 07:00 Condition: STABLE Forms: [employer] (Mongolian)
[2017-06-24 07:05] VITALS: RESP 18; TEMP 98.8
[2017-06-24 07:13] LABS: BASO # 0.01 K/mm3 (0.0-2.0); BASO % 0.1 % (0.0-3.0); EOS % 0.3 % (1.5-5.0); GRAN # 7.33 (1.4-6.5); GRAN % 70.9 % (50.0-68.0); HEMOGLOBIN 13.8 g/dL (14.0-18.0); LYMPH % 19.6 % (22.0-35.0); MEAN CORPUSCULAR HEMOGLOBIN 29.3 pg (25.0-35.0); MEAN CORPUSCULAR HGB CONC 34.1 g/dl (31.0-37.0); MEAN PLATELET VOLUME 8.9 fl (7.0-11.0); MONO # 0.9 (0.1-0.6); MONO % 9.1 % (1.0-6.0); PLATELET COUNT 266 10^3/uL (120.0-450.0); RBC 4.71 10^6/uL (3.5-6.1); RED CELL DISTRIBUTION WIDTH 13.4 % (11.5-14.5); WHITE BLOOD COUNT 10.3 10^3/ul (4.5-11.0)
--- NOTE | 2017-06-24 07:17 | ED PDOC ---
Physical Exam Vital Signs Reviewed: Yes Vital Signs Temp Pulse Resp BP Pulse Ox 06/24/17 07:15 87 18 140/90 99 06/24/17 07:04 98.8 F 88 18 106/89 98 Temperature: Afebrile Blood Pressure: Normal Pulse: Regular Respiratory Rate: Normal Medical Decision Making ED Course and Treatment: 06/24/17 07:17 Case endorsed to me by Dr. Santiago, pending labs and PES evaluation. Patient presented for psych evaluation. History of schizophrenia. Report Date : 06/24/2017 08:57:41 Procedure: Chest xray Dictator : Lawson Salazar MD IMPRESSION: No active disease. 06/24/17 10:15 Patient evaluated by PES worker, plan is to admit to psych for dementia. - Lab Interpretations Lab Results: 06/24/17 07:00 06/24/17 07:00 Lab Results 06/24/17 09:00: Urine Color Yellow, Urine Appearance Turbid, Urine pH 8.0, Ur Specific [place] >= 1.030, Urine Protein 100 H, Urine Glucose (UA) Negative, Urine Ketones Negative, Urine Blood Small H, Urine Nitrate Positive H, Urine Bilirubin Negative, Urine Urobilinogen 0.2, Ur Leukocyte Esterase Negative, Urine RBC 0 - 2, Urine WBC 0 - 2, Ur Epithelial Cells 3 - 4, Urine Bacteria Many 06/24/17 07:00: Alcohol, Quantitative < 10 06/24/17 07:00: Salicylates < 1 L, Acetaminophen < 10.0 L 06/24/17 07:00: Sodium 141, Potassium 4.1, Chloride 105, Carbon Dioxide 22, Anion Gap 18, BUN 15, Creatinine 0.8, Est GFR ( Amer) > 60, Est GFR (Non- Af Amer) > 60, Random Glucose 148 H, Calcium 9.7, Total Bilirubin 1.7 H, AST 60 H, ALT 81 H, Alkaline Phosphatase 94, Total Protein 8.6 H, Albumin 5.0 H, Globulin 3.6, Albumin/Globulin Ratio 1.4 06/24/17 07:00: WBC 10.3 D, RBC 4.71, Hgb 13.8 L, Hct 40.5 L, MCV 86.0, MCH 29.3, MCHC 34.1, RDW 13.4, Plt Count 266, MPV 8.9, Gran % 70.9 H, Lymph % (Auto ) 19.6 L, [place] % (Auto) 9.1 H, Eos % (Auto) 0.3 L, Baso % (Auto) 0.1, Gran # 7.33 H, Lymph # 2.0, [place] # 0.9 H, Eos # 0.0, Baso # 0.01 - RAD Interpretation Radiology Orders: 06/24/17 06:33 CHEST PORTABLE [RAD] Stat - Medication Orders Current Medication Orders: Discontinued Medications Risperidone (Risperdal Tab) 2 mg PO STAT STA PRN Reason: Protocol Stop: 06/24/17 09:22 Last Admin: 06/24/17 09:55 Dose: 2 mg Disposition/Present on Arrival - Present on Arrival Any Indicators Present on Arrival: No History of DVT/PE: No History of Uncontrolled Diabetes: No Urinary Catheter: No History of Decub. Ulcer: No History Surgical Site Infection Following: None - Disposition Have Diagnosis and Disposition been Completed?: Yes Diagnosis: Psychotic disorder Disposition Time: 10:15 Patient Problems: Current Active Problems Problem Status Onset Psychotic disorder Acute Condition: STABLE Referrals: Agusto Mai MD [Primary Care Provider] - Follow up with primary Forms: [employer] ([place])
[2017-06-24 07:21] LABS: SALICYLATE < 1 mg/dL (2.0-20.0)
[2017-06-24 07:22] LABS: ALB/GLOB RATIO 1.4 (1.1-1.8); ALT/SGPT 81 U/L (7-56); AST/SGOT 60 U/L (15-59); BLOOD UREA NITROGEN 15 mg/dL (7-21); CALCIUM 9.7 mg/dL (8.4-10.5); GFR AFRICAN-AMERICAN > 60; GFR NON-AFRICAN AMERICAN > 60
[2017-06-24 07:23] LABS: ACETAMINOPHEN < 10.0 ug/ml (10.0-20.0)
[2017-06-24 08:59] VITALS: O2SAT 99
--- NOTE | 2017-06-24 08:59 | RAD ---
HISTORY: med clearence COMPARISON: 05/21/2017 FINDINGS: LUNGS: No active pulmonary disease. PLEURA: No significant pleural effusion identified, no pneumothorax apparent. CARDIOVASCULAR: Normal. OSSEOUS STRUCTURES: No significant abnormalities. VISUALIZED UPPER ABDOMEN: Normal. OTHER FINDINGS: None. IMPRESSION: No active disease.
[2017-06-24 09:25] LABS: URINE BILIRUBIN NEGATIVE (NEGATIVE); URINE BLOOD SMALL (NEGATIVE); URINE GLUCOSE (UA) NEGATIVE (NEGATIVE); URINE LEUKOCYTE ESTERASE NEGATIVE Leu/uL (NEGATIVE); URINE NITRATE POSITIVE (NEGATIVE); URINE PROTEIN 100 mg/dL (<30 mg/dL); URINE UROBILINOGEN 0.2 E.U./dL (<1 E.U./dL)
[2017-06-24 09:32] LABS: URINE APPEARANCE TURBID (CLEAR); URINE COLOR YELLOW (YELLOW)
[2017-06-24 09:40] LABS: URINE RBC 0 - 2 /hpf (0-2); URINE WBC 0 - 2 /hpf (0-6)
[2017-06-24 09:41] LABS: URINE BACTERIA MANY (NEG)
[2017-06-24 13:41] VITALS: BP 158/95; PULSE 86
--- NOTE | 2017-06-24 16:27 | PCM.BM ---
Treatment Plan Problems - Problems identified on initial assessmt PSYCHOSIS Date Initiated: 06/24/17 Time Initiated: 16:00 Assessment reference: NA Status: Active Priority: 1 Comment: DISORGANIZED THOUGHTS ALTERED SLEEP PATTERN Date Initiated: 06/24/17 Time Initiated: 16:00 Assessment reference: NA Status: Active Priority: 2 Treatment assets and liabiliti Patient Assests: adapts well, good support system Patient Liabilities: imparied memory - Milieu Protocol Maintain good personal hygiene: daily Encourage regular showers, daily Assist patient to perform ADL's, every shift Remind patient to perform daily oral care Conduct patient checks and document Observation sheet: Q15 minutes Maintain personal safety: every shift Educate patient to report safety concerns to staff, every shift Monitor environment for contraband/sharps Medication safety: Monitor for expected outcome, potential side effects: every shift, Assess barriers to learning: every shift, Assess readiness for medication education: every shift Family Contact Family involvement: Family/SO is involved Discharge/Continuing Care - Education Needs Education Needs: Family Medication, Family Diagnosis/Disease Process, Family Coping Skills, Family Personal Hygiene/Grooming - Discharge Discharge Criteria: Tolerates medication w/o severe side effects, Free of Suicidal thoughts, Free of paranoid thoughts, Normal sleep pattern, Ability to care for self
[2017-06-24] MEDS ORDERED: Alum-Mag Hydrox-Simethicone Susp (30 mL) PO PRN (16:32)
[2017-06-24] MEDS ORDERED: Magnesium Hydroxide Susp 30 ml UD PO PRN (16:33)
--- NOTE | 2017-06-24 23:39 | CARD ---
APPROVED REPORT EKG Measurement Heart [id number] <Conclusion> Normal sinus rhythm Prolonged QT Abnormal ECG
--- NOTE | 2017-06-25 03:06 | HP ---
IDENTIFYING INFORMATION: The patient is a 51-year-old white male who was brought to the emergency room by his and son in an agitated state. He had been seen in my office one week previously. However, according to his family, he had become worse in his bizarre hyperactive behavior. He reportedly has a history of psychotic behavior and schizophrenia, although I have been inclined to believe the patient now is suffering from a dementiform disorder. The patient is disorganized in his thinking. He is denying auditory or visual hallucinations, but is disorganized and is a poor historian. He has not been sleeping according to the patient's family, and they were fearful for their own safety as well as his. The patient is also being treated for hypertension and seizure disorder. The patient was first hospitalized in [place] this past 09/27/2016 through 10/04/2016, and then again from 05/17/2017 to 05/30/2017. The patient had initially come to my attention this past September after he recently admitted, after having suffered a seizure at home. He has been to his of 26 years and has 3 healthy children. He is a [place] of [place] who came [facility] the [facility] at age 16. He told me that he had spent some time in [facility] (but his denied this as this was at a time when he was planning a trip to go [facility] [place] [facility]). 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 The seizures have been associated with bizarre behavior such that on several occasions he has wound up at the [facility] and [facility]. Associated with this has been mutism. The patient has been on disability because of this condition. 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 The patient does not have a history of substance abuse or mental health involvement before this recent complex behavior over the past year or two. The patient's mother reportedly has become depressed and agitated after the murder of the patient's sister in the [facility] approximately 21 years ago. The patient's father reportedly of complication of diabetes at age 52. His mother reportedly is alive, has coronary artery disease and hypercholesterolemia. The patient has no known history of substance abuse or familial substance abuse. The patient has had urinary difficulties in the past. A CT scan of his head in September 2014 without contrast shows no bleed or midline shift or hydrocephalus with extensive hypoattenuation of the cerebral white matter, suspicious for demyelinating process. The patient is presently disorganized. He seems to recognize me, but not by name. He is intermittently agitated. He does not appear to be responding to internal stimuli. His insight and judgment are impaired. He is being maintained on Risperdal 2 mg in the morning and 3 mg at bedtime. LABORATORY DATA: A biochemical profile shows low hemoglobin of 13.8 and hematocrit 40.5. Granulocyte percent elevated 70.9, low lymphocyte percent 19.6, monocyte percent elevated 9.1 and eosinophil percent low at 0.3. Toxicology screen is negative. Urinalysis shows 100 protein, small amount of blood, positive nitrites. Biochemical profile shows elevated serum glucose 148, total bilirubin elevated at 1.7, elevated AST 60 and ALT 81. Total protein elevated at 8.6 and albumin elevated at 5.0. PHYSICAL EXAMINATION: GENERAL: The patient is well nourished. HEENT: Pupils are equal, round, reactive to light and accommodation. Mouth moist. No masses. No exudate. Gag reflex present. NECK: Neck is supple, no jugular venous distention. No thyromegaly. symmetric. LUNGS: Clear to percussion and auscultation. CARDIOVASCULAR: Heart rate is regular, no murmur, no rub, no gallops. ABDOMEN: Abdomen is soft, no organomegaly, no tenderness. : Genitalia and rectal exam is deferred. EXTREMITIES: Much of pedal pulses present. NEUROLOGIC: Cranial nerves II through XII are grossly intact. SOCIAL HISTORY: The patient is not presently smoking cigarettes. DIAGNOSES: Dementia, type unspecified with agitated features. Geovanny Slater MD/ PhD
== END 2017-06-24 19:55 | disposition short-term general hospital (02) | DRG 884 ==
LOC: ED 05:59 → ERH 10:16 → PSYC 11:50
PROVIDERS: ADMIT Psychiatry & Neurology Addiction Medicine; ATTEND Psychiatry & Neurology Addiction Medicine
DX: F03.90 Unspecified dementia, unspecified severity, without behavioral disturbance, psychotic disturbance, mood disturbance, and anxiety (principal); R45.1 Restlessness and agitation; G40.909 Epilepsy, unspecified, not intractable, without status epilepticus; I10 Essential (primary) hypertension; Z86.59 Personal history of other mental and behavioral disorders

== ENCOUNTER 2017-06-24 19:55 | Inpatient (IN) | payer MEDICARE, MEDICAID ==
[2017-06-24 20:13] LABS: ARTERIAL BLOOD GAS HCO3 23.1 mmol/L (21-28); ARTERIAL BLOOD GAS O2 CAPACITY 20.4 mL/dl (16-24); ARTERIAL BLOOD GAS O2 CONTENT 19.5 ML/dl (15-23); ARTERIAL BLOOD GAS O2 SAT 95.4 % (95-98); ARTERIAL BLOOD GAS PCO2 31 mm/Hg (35-45); ARTERIAL BLOOD GAS PH 7.48 (7.35-7.45); ARTERIAL BLOOD GAS TCO2 24.1 mmol.L (22-28)
--- NOTE | 2017-06-24 20:13 | CP.PCM.PN ---
<Grayson Bedoya - Last Filed: 06/24/17 20:22> Subjective - Date & Time of Evaluation Date of Evaluation: 06/24/17 Time of Evaluation: 20:03 - Subjective Subjective: RAPID RESPONSE NOTE Rapid response was called on patient in the psychiatry unit at approximately 1945. Patient was found slumped over in the chair by nursing staff. They stated the patient was admitted to the psychiatry unit earlier today. In the afternoon earlier today was the last time the patient was seen talking and acting normally. Once the patient was found slumped over in his chair, a rapid response was called. Pt was drooling on himself with no signs of tongue biting or bowel/bladder incontinence. Initial vitals were as follows: BP: 153/123, O2 Sat: 95% on RA, fingerstick: 242. Pt had had only received Risperdale and Congentin since arriving at the hospital. Pt was evaluated and unresponsive. Pt was brought to the ED where a CODE STROKE was called. From review of labs from earlier today, there were no significant lab or imaging abnormalities. Objective - Constitutional Appears: In Acute Distress - Head Exam Head Exam: ATRAUMATIC, NORMAL INSPECTION, NORMOCEPHALIC - Eye Exam Eye Exam: Normal appearance - Respiratory Exam Respiratory Exam: Clear to Ausculation Bilateral, NORMAL BREATHING PATTERN - Cardiovascular Exam Cardiovascular Exam: RRR, +S1, +S2 - GI/Abdominal Exam GI & Abdominal Exam: Soft, Normal Bowel Sounds. absent: Tenderness - Extremities Exam Extremities Exam: absent: Calf Tenderness, Pedal Edema - Neurological Exam Neurological Exam: absent: Alert, Awake, Oriented x3 Additional comments: Obtunded - Skin Skin Exam: Intact, Normal Color, Warm <Emi Mullins - Last Filed: 06/25/17 03:06> Objective - Vital Signs/Intake and Output Vital Signs (last 24 hours): Temp Pulse Resp BP Pulse Ox 102.4 F H 92 H 20 141/96 H 94 L 06/25/17 00:14 06/24/17 23:50 06/24/17 23:50 06/24/17 23:50 06/24/17 22:56 - Medications Medications: Current Medications Acetaminophen (Tylenol 650 Mg Supp) 650 mg RC Q4H PRN PRN Reason: Fever >100.4 F Last Admin: 06/25/17 00:14 Dose: 650 mg Aspirin (Aspirin Chewable) 81 mg PO DAILY [facility] Atorvastatin Calcium (Lipitor) 40 mg PO HS [facility] Donepezil HCl (Aricept) 5 mg PO HS [facility] Heparin Sodium (Porcine) (Heparin) 5,000 units SC Q12 [facility] PRN Reason: Protocol Ceftriaxone Sodium (Rocephin 1 Gram Ivpb) 1 gm in 100 mls @ 100 mls/hr IVPB DAILY [facility] PRN Reason: Protocol Sodium Chloride (Sodium Chloride 0.9%) 1,000 mls @ 100 mls/hr IV .Q10H [facility] Last Admin: 06/25/17 00:13 Dose: 100 mls/hr Levetiracetam 1,000 mg/ Sodium (Chloride) 110 mls @ 460 mls/hr IV Q12 [facility] Last Admin: 06/25/17 00:33 Dose: 460 mls/hr Lorazepam (Ativan) 1 mg IVP Q2H PRN; Protocol PRN Reason: seizures Non-Formulary Medication (Lacosamide [Vimpat]) 1 tab PO BID [facility] Last Admin: 06/25/17 00:02 Dose: Not Given Ondansetron HCl (Zofran Inj) 4 mg IVP Q4H PRN PRN Reason: Nausea/Vomiting Pantoprazole Sodium (Protonix Inj) 40 mg IVP DAILY [facility] Risperidone (Risperdal Tab) 2 mg PO DAILY [facility] PRN Reason: Protocol Risperidone (Risperdal Tab) 3 mg PO HS [facility] PRN Reason: Protocol - Labs Labs: PT 11.4 Seconds (9.9-11.8) 06/24/17 19:50 INR 1.06 (0.93-1.08) 06/24/17 19:50 APTT 24.1 Seconds (23.7-30.8) 06/24/17 19:50
--- NOTE | 2017-06-24 20:20 | CT ---
EXAM: CT Head Without Intravenous Contrast CLINICAL HISTORY: 51 years old, male; Signs and symptoms; Weakness, facial and other: Code stroke TECHNIQUE: Axial computed tomography images of the head/brain without intravenous contrast. All CT scans at this facility use one or more dose reduction techniques, viz.: automated exposure control; ma/kV adjustment per patient size (including targeted exams where dose is matched to indication; i.e. head); or iterative reconstruction technique. EXAM DATE/TIME: 06/24/2017 8:05 PM COMPARISON: There are no prior studies for comparison. FINDINGS: Brain: Ventricles are normal in size. There are is no midline shift. There is prominence of sulci and gyri. There is patchy decreased attenuation in periventricular white matter. There are age-indeterminate lacunar infarcts in the basal ganglia. There are no intra-axial or extra-axial mass lesions or areas of hemorrhage. There are no abnormal fluid collections. Stark-white differentiation is maintained. Ventricles: See above Bones: Cranial vault is intact. Soft tissues: unremarkable Sinuses: There is no acute sinusitis. Ears and mastoids: Middle ears and mastoids are unremarkable Orbits: Orbital contents are unremarkable. Dental: Streak artifact from dental fillings degrades image quality. IMPRESSION: Mild atrophy and small vessel disease; age-indeterminate lacunar infarcts in the basal ganglia; no bleed
[2017-06-24 20:31] VITALS: BMI 33.7
[2017-06-24 20:40] LABS: BASO # 0.02 K/mm3 (0.0-2.0); BASO % 0.2 % (0.0-3.0); EOS % 0.2 % (1.5-5.0); GRAN # 10.32 (1.4-6.5); GRAN % 79.1 % (50.0-68.0); HEMOGLOBIN 15.2 g/dL (14.0-18.0); LYMPH # 1.8 (1.2-3.4); LYMPH % 13.4 % (22.0-35.0); MEAN CELL VOLUME 87.9 fl (80.0-105.0); MEAN CORPUSCULAR HEMOGLOBIN 30.7 pg (25.0-35.0); MEAN CORPUSCULAR HGB CONC 34.9 g/dl (31.0-37.0); MONO # 0.9 (0.1-0.6); MONO % 7.1 % (1.0-6.0); PLATELET COUNT 248 10^3/uL (120.0-450.0); RBC 4.95 10^6/uL (3.5-6.1); RED CELL DISTRIBUTION WIDTH 13.5 % (11.5-14.5)
[2017-06-24 20:42] LABS: ALB/GLOB RATIO 1.4 (1.1-1.8); ALBUMIN 4.9 g/dL (3.0-4.8); ALT/SGPT 85 U/L (7-56); AST/SGOT 67 U/L (15-59); BLOOD UREA NITROGEN 20 mg/dL (7-21); CALCIUM 9.7 mg/dL (8.4-10.5); GFR AFRICAN-AMERICAN > 60; GFR NON-AFRICAN AMERICAN 53; HDL CHOLESTEROL 45 mg/dL (29-60)
[2017-06-24 20:48] LABS: INR 1.06 (0.93-1.08); PARTIAL THROMBOPLASTIN TIME 24.1 Seconds (23.7-30.8); PROTHROMBIN TIME 11.4 Seconds (9.9-11.8)
[2017-06-24 20:52] LABS: LDL CHOLESTEROL 187 mg/dL (0-129)
[2017-06-24 20:57] LABS: TROPONIN I < 0.01 ng/mL
[2017-06-24 21:23] LABS: CK-MB 1.6 ng/mL (0.0-3.6)
[2017-06-24] MEDS ORDERED: Sodium Chloride 0.9% 1,000 ML IV STA (22:01)
[2017-06-24] MEDS ORDERED: Cefepime IV 2 gm in NS 2 GM/100 ML BAG IVPB STA (22:02)
--- NOTE | 2017-06-24 22:07 | ED PDOC ---
Arrival/HPI - General Chief Complaint: Altered Mental Status Time Seen by Provider: 06/24/17 19:58 Historian: Family, Other (nursing staff, with house doctor) - History of Present Illness Narrative History of Present Illness (Text): 06/24/17 22:04 Patient is a 51 yo male, past medical history of dementia, schizophrenia, seizure disorder, presents to ED after "being found unresponsive" on psychiatric unit prior to arrival. As per nursing staff caring for patient on psychiatric unit, the patient was last seen "around 645" and "had no issues". Reportedly approximately 730 the patient was found "not responding". There was no witnessed seizure activity. No trauma noted. Nursing staff denied any recent medication administration. No head injury noted. Time/Duration: Prior to Arrival Past Medical History - Infectious Disease Hx of Infectious Diseases: None - Tetanus Immunization Tetanus Immunization: Unknown - Cardiac Hx Cardiac Disorders: Yes Hx Hypertension: Yes - Pulmonary Hx Respiratory Disorders: No Hx Tuberculosis: No - Neurological Hx Neurological Disorder: Yes Hx Seizures: Yes - HEENT Hx HEENT Disorder: No - Renal Hx Renal Disorder: No - Endocrine/Metabolic Hx Endocrine Disorders: No - Hematological/Oncological Hx Blood Disorders: No Hx Cancer: No - Integumentary Hx Dermatological Disorder: No - Musculoskeletal/Rheumatological Hx Musculoskeletal Disorders: No Hx Falls: No - Gastrointestinal Hx Gastrointestinal Disorders: No - Genitourinary/Gynecological Hx Genitourinary Disorders: No Hx Sexually Transmitted Diseases: No - Psychiatric Hx Psychophysiologic Disorder: Yes Hx Depression: Yes Hx Schizophrenia: Yes Hx Substance Use: No - Surgical History Other/Comment: Hx of kidney sx - Anesthesia Hx Anesthesia: Yes Hx Anesthesia Reactions: No Hx Malignant Hyperthermia: No - Suicidal Assessment Feels Threatened In Home Enviroment: No Family/Social History Smoking Status: Unknown If Ever Smoked Hx Alcohol Use: No Hx Substance Use: No Allergies/Home Meds Allergies/Adverse Reactions: Allergies No Known Allergies Allergy (Verified 06/24/17 06:20) Home Medications: Home Meds Medication Instructions Recorded Confirmed Lacosamide [Vimpat] 1 tab PO BID 05/16/17 06/24/17 Atorvastatin [Lipitor] 40 mg PO HS 06/24/17 06/24/17 amLODIPine [Norvasc] 5 mg PO DAILY 06/24/17 06/24/17 Review of Systems - Review of Systems Systems not reviewed;Unavailable: Altered Mental Status Constitutional: absent: Fevers Respiratory: absent: SOB Gastrointestinal: absent: Vomiting Neurological: Speech Changes Psychiatric: absent: Suicidal Ideation Physical Exam Vital Signs Reviewed: Yes Mental Status: Positive for: Lethargic Finger Stick Blood Glucose: 196 - Systems Exam Head: Present: Atraumatic Pupils: Present: Sluggish Extroacular Muscles: No: Gaze Palsy Conjunctiva: No: Injected Mouth: Present: Dry, Other (no tongue laceration noted). No: Drooling Pharnyx: No: Strider Nose (Internal): Present: No Active Bleeding Neck: No: Meningeal Signs, JVD Respiratory/Chest: Present: Rhonchi. No: Respiratory Distress, Accessory Muscle Use, Wheezes, Retracting Cardiovascular: Present: Regular Rate and Rhythm, Murmurs Abdomen: No: Tenderness, Distention Back: No: Midline Tenderness Upper Extremity: Present: NORMAL PULSES Lower Extremity: Present: NORMAL PULSES Neurological: Present: Other (patient on initial exam will not respond to verbal stimuli, will localize painful stimuli and move all extremities however) Psychiatric: No: Normal Insight, Normal Concentration Medical Decision Making ED Course and Treatment: 06/24/17 22:13 Patient's history obtained from house doctor, Dr. Mullins who was present on floor , as well as directly with nursing staff from psychiatric unit. Patient reportedly was last seen "at 645" then was found unresponsive some time later. No trauma or overdose or seizure was witnessed. On initial exam, patient with no respiratory distress, stable BP, and will respond to painful stimuli and move all extremities. He reportedly has prior seizure history, taking Vimpat. As per family he did not have his dose today as far as she is aware. Patient reportedly had been ordered Risperidal and Cogentin. Family states to me that similar episodes happended at [facility] , where "he was admitted to psychiatry and then have episodes of not talking" which "they said was from the medication". With serial exams he his moving all four extremities, responding to verbal stimuli, still lethargic, but no respiratory distress. Lactate on ABG is 3.1, but afebrile, no hypotension, I suspect possible related to seziure although will continue admission with serial exams and monitoring of symptoms. IV fluids and antibiotics ordered. Patient CT head unremarkable for acute bleed. No focal motor deficits on re-exam. As patient with rapidly improving symptoms as well as likely other etiology of ams, patient is not a tpa candidate. 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 - Lab Interpretations Lab Results: 06/24/17 19:50 06/24/17 19:50 Lab Results 06/24/17 20:05: pCO2 31 L, pO2 62.0 L, HCO3 23.1, ABG pH 7.48 H, ABG Total CO2 24.1, ABG O2 Saturation 95.4, ABG O2 Content 19.5, ABG Base Excess 0.5, ABG Hemoglobin 15.0, ABG Carboxyhemoglobin 1.8 H, POC ABG HHb (Measured) 4.5, ABG Methemoglobin 0.8, ABG O2 Capacity 20.4, Hgb O2 Saturation 92.8 L, FiO2 21.0 06/24/17 19:50: Blood Type A NEGATIVE, Antibody Screen Negative, BBK History Checked No verified bt 06/24/17 19:50: Sodium 138, Potassium 5.0, Chloride 98, Carbon Dioxide 23, Anion Gap 22 H, BUN 20, Creatinine 1.4, Est GFR ( Amer) > 60, Est GFR ( Non-Af Amer) 53, Random Glucose 190 H, Calcium 9.7, Total Bilirubin 2.3 H, AST 67 H, ALT 85 H, Alkaline Phosphatase 84, Lactate Dehydrogenase 774 H, Total Creatine Kinase 595 H, CK-MB (CK-2) 1.6, CK-MB (CK-2) % Cancelled, Troponin I < 0.01, Total Protein 8.5 H, Albumin 4.9 H, Globulin 3.5, Albumin/Globulin Ratio 1.4, Triglycerides 102, Cholesterol 245 H, LDL Cholesterol Direct 187 H, HDL Cholesterol 45 06/24/17 19:50: PT 11.4, INR 1.06, APTT 24.1 06/24/17 19:50: WBC 13.0 H D, RBC 4.95, Hgb 15.2, Hct 43.5, MCV 87.9, MCH 30.7, MCHC 34.9, RDW 13.5, Plt Count 248, MPV 9.0, Gran % 79.1 H, Lymph % (Auto) 13.4 L, [place] % (Auto) 7.1 H, Eos % (Auto) 0.2 L, Baso % (Auto) 0.2, Gran # 10.32 H, Lymph # 1.8, [place] # 0.9 H, Eos # 0.0, Baso # 0.02 - RAD Interpretation Radiology Orders: 06/24/17 20:05 HEAD W/O (CODE STROKE) [CT] Stat CHEST PORTABLE [RAD] Stat Senior Business Process Analyst: Radiologist - EKG Interpretation EKG Interpretation (Text): 06/24/17 22:19 EKG at 19:59 normal sinus rhythm rate of [address] elevations Interpreted by ED Physician: Yes Type: 12 lead EKG Comparison: Com.w/previous EKG - Medication Orders Current Medication Orders: Aspirin (Aspirin Supp) 300 mg RC STAT STA Stop: 06/24/17 22:03 Sodium Chloride (Sodium Chloride 0.9%) 1,000 mls @ 1,000 mls/hr IV .Q1H STA Stop: 06/24/17 23:00 Cefepime HCl (Maxipime 2gm) 2 gm in 100 mls @ 100 mls/hr IVPB STAT STA PRN Reason: Protocol Stop: 06/24/17 23:01 NIHSS Scale ([place]) Time Performed: 19:55 - How Severe is the Stoke Baseline Level of Consciousness: 2=Obtunded LOC to Questions: 2=Neither correct LOC to commands: 2=Neither correct Best Gaze: 0=Normal Visual: 0=No visual loss Facial: 0=Normal Motor Arm - Left: 1=Drift noted before 10 sec Motor Arm - Right: 1=Drift noted before 10 sec Motor Leg - Left: 1=Drift before 5 sec Motor Leg - Right: 1=Drift before 5 sec Limb Ataxia: 1=Present Upper or Lower Sensory: 0=Normal Best Language: 1=Mild to moderate aphasia Dysarthia: 1=Mild to moderate slurring Extinction & Inattention (Neglect): 0=Normal, no object Score: 13 Risk Level: Mod Stroke Risk rTPA Inclusion/Exclusion - Refusal of Treatment Patient Refused Treatment: No - Inclusion Criteria for Altepase Patient is 18 years or Older: Yes The Clinical Diagnosis of Ischemic Stroke That is Causing a Potentially Disabling Neurological Deficit: No Time of Onset is Well Established to be Less Than 270 Minute Before Treatment Would Begin: Yes Risk/Benefit Discussed With Patient/Family Member Present: Yes - Warning to TPA With Conditions Condition: Rapid Improvement Disposition/Present on Arrival - Present on Arrival Any Indicators Present on Arrival: No History of DVT/PE: No History of Uncontrolled Diabetes: No Urinary Catheter: No History of Decub. Ulcer: No History Surgical Site Infection Following: None - Disposition Have Diagnosis and Disposition been Completed?: Yes Diagnosis: Altered mental status, Seizure disorder, Elevated liver enzymes, Elevated CPK Disposition: HOSPITALIZED Disposition Time: 10:00 Patient Plan: Admission, Telemetry Patient Problems: Current Active Problems Problem Status Onset Psychotic disorder Acute Condition: SERIOUS Forms: [employer] (Niuean)
--- NOTE | 2017-06-24 22:28 | CP.PCM.HP ---
Addendum entered and electronically signed by Grayson Bedoya DO 06/25/17 00: 06: Keppra 1000 mg IV q12h started Addendum entered and electronically signed by Grayson Bedoya DO 06/25/17 00: 04: Plan: Home medication Vimpat not available in hospital. 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 Pt initially presented to the ED earlier this morning due to worsening schizophrenia symptoms and insomnia according to his . Pt did not receive his home medications before coming to the ED. In the psych unit, pt received Risperdal and Cogentin. MEDIA LIAISON OFFICER was called when patient was found unresponsive, slumped over, and drooling. Pt did not have any bowel/bladder incontinence or evidence of tongue biting. Patient was taken to the ED where a CODE STROKE was called. Pt received a Head CT and blood work. Pt's was at bedside and states pt has had an episode like this 2 years ago, and has had several since, with the most recent being several months ago. Pt is arousable to painful stimuli, but does not obey commands. Pt is compliant ROS unobtainable due to patients altered mental status. Medical Hx also obtained from prior charts. PMH: HTN, HLD, anxiety, depression, seizure disorder, schizophrenia, and early onset alzheimer's dementia Surgical Hx: Kidney surgery? FMH: Noncontributory Social Hx: No tobacco, alcohol, or illicit drug use. Lives at home with . Medications: Reviewed, as per chart. Allergies: NKDA Present on Admission - Present on Admission Any Indicators Present on Admission: No Review of Systems - Review of Systems Systems not reviewed;Unavailable: Altered Mental Status Past Patient History - Infectious Disease Hx of Infectious Diseases: None - Tetanus Immunizations Tetanus Immunization: Unknown - Past Medical History & Family History Past Medical History?: Yes - Past Social History Smoking Status: Unknown If Ever Smoked - CARDIAC Hx Cardiac Disorders: Yes Hx Hypertension: Yes - PULMONARY Hx Respiratory Disorders: No Hx Tuberculosis: No - NEUROLOGICAL Hx Neurological Disorder: Yes Hx Seizures: Yes - HEENT Hx HEENT Problems: No - RENAL Hx Chronic Kidney Disease: No - ENDOCRINE/METABOLIC Hx Endocrine Disorders: No - HEMATOLOGICAL/ONCOLOGICAL Hx Blood Disorders: No Hx Cancer: No - INTEGUMENTARY Hx Dermatological Problems: No - MUSCULOSKELETAL/RHEUMATOLOGICAL Hx Musculoskeletal Disorders: No Hx Falls: No - GASTROINTESTINAL Hx Gastrointestinal Disorders: No - GENITOURINARY/GYNECOLOGICAL Hx Genitourinary Disorders: No Hx Sexually Transmitted Disorders: No - PSYCHIATRIC Hx Psychophysiologic Disorder: Yes Hx Depression: Yes Hx Schizophrenia: Yes Hx Substance Use: No - SURGICAL HISTORY Other/Comment: Hx of kidney sx - ANESTHESIA Hx Anesthesia: Yes Hx Anesthesia Reactions: No Hx Malignant Hyperthermia: No Meds Allergies/Adverse Reactions: Allergies Allergy/AdvReac Type Severity Reaction Status Date / Time No Known Allergies Allergy Verified 06/24/17 06:20 Physical Exam - Constitutional Appears: Non-toxic, No Acute Distress Additional comments: Obtunded - Head Exam Head Exam: ATRAUMATIC, NORMAL INSPECTION, NORMOCEPHALIC - Eye Exam Eye Exam: Normal appearance Pupil Exam: PERRL - ENT Exam ENT Exam: Mucous Membranes Moist - Neck Exam Neck exam: Positive for: Normal Inspection. Negative for: Lymphadenopathy - Respiratory Exam Respiratory Exam: Clear to Auscultation Bilateral, NORMAL BREATHING PATTERN. absent: Rhonchi, Wheezes - Cardiovascular Exam Cardiovascular Exam: RRR, +S1, +S2 - GI/Abdominal Exam GI & Abdominal Exam: Normal Bowel Sounds, Soft. absent: Tenderness - Extremities Exam Extremities exam: Positive for: normal inspection. Negative for: calf tenderness, tenderness - Neurological Exam Additional comments: Obtunded, responsive to painful stimuli - Skin Skin Exam: Normal Color, Warm Results - Vital Signs Recent Vital Signs: Last Vital Signs Temp Pulse 92 H 06/24/17 21:53 Resp 20 06/24/17 21:53 BP 134/102 H 06/24/17 21:53 Pulse Ox 96 06/24/17 21:53 - Labs Result Diagrams: 06/24/17 19:50 06/24/17 19:50 Labs: Laboratory Results - last 24 hr 06/24/17 06/24/17 06/24/17 19:50 19:50 19:50 WBC 13.0 H D RBC 4.95 Hgb 15.2 Hct 43.5 MCV 87.9 MCH 30.7 MCHC 34.9 RDW 13.5 Plt Count 248 MPV 9.0 Gran % 79.1 H Lymph % (Auto) 13.4 L [place] % (Auto) 7.1 H Eos % (Auto) 0.2 L Baso % (Auto) 0.2 Gran # 10.32 H Lymph # 1.8 [place] # 0.9 H Eos # 0.0 Baso # 0.02 PT 11.4 INR 1.06 APTT 24.1 pCO2 pO2 HCO3 ABG pH ABG Total CO2 ABG O2 Saturation ABG O2 Content ABG Base Excess ABG Hemoglobin ABG Carboxyhemoglobin POC ABG HHb (Measured) ABG Methemoglobin ABG O2 Capacity Hgb O2 Saturation FiO2 Sodium 138 Potassium 5.0 Chloride 98 Carbon Dioxide 23 Anion Gap 22 H BUN 20 Creatinine 1.4 Est GFR ( Amer) > 60 Est GFR (Non-Af Amer) 53 Random Glucose 190 H Calcium 9.7 Total Bilirubin 2.3 H AST 67 H ALT 85 H Alkaline Phosphatase 84 Lactate Dehydrogenase 774 H Total Creatine Kinase 595 H CK-MB (CK-2) 1.6 CK-MB (CK-2) % Cancelled Troponin I < 0.01 Total Protein 8.5 H Albumin 4.9 H Globulin 3.5 Albumin/Globulin Ratio 1.4 Triglycerides 102 Cholesterol 245 H LDL Cholesterol Direct 187 H HDL Cholesterol 45 Blood Type Antibody Screen BBK History Checked 06/24/17 06/24/17 19:50 20:05 WBC RBC Hgb Hct MCV MCH MCHC RDW Plt Count MPV Gran % Lymph % (Auto) [place] % (Auto) Eos % (Auto) Baso % (Auto) Gran # Lymph # [place] # Eos # Baso # PT INR APTT pCO2 31 L pO2 62.0 L HCO3 23.1 ABG pH 7.48 H ABG Total CO2 24.1 ABG O2 Saturation 95.4 ABG O2 Content 19.5 ABG Base Excess 0.5 ABG Hemoglobin 15.0 ABG Carboxyhemoglobin 1.8 H POC ABG HHb (Measured) 4.5 ABG Methemoglobin 0.8 ABG O2 Capacity 20.4 Hgb O2 Saturation 92.8 L FiO2 21.0 Sodium Potassium Chloride Carbon Dioxide Anion Gap BUN Creatinine Est GFR ( Amer) Est GFR (Non-Af Amer) Random Glucose Calcium Total Bilirubin AST ALT Alkaline Phosphatase Lactate Dehydrogenase Total Creatine Kinase CK-MB (CK-2) CK-MB (CK-2) % Troponin I Total Protein Albumin Globulin Albumin/Globulin Ratio Triglycerides Cholesterol LDL Cholesterol Direct HDL Cholesterol Blood Type A NEGATIVE Antibody Screen Negative BBK History Checked No verified bt Assessment & Plan - Assessment and Plan (Free Text) Plan: 51 y/o M with PMH of HTN, HLD, anxiety, depression, seizure disorder, schizophrenia, and early onset alzheimer's dementia presents with likely seizure episode in the psychiatry unit. Pt received Head CT which showed mild atrophy and age-indeterminate lacunar infarcts in the basal ganglia with no acute bleed. Case discussed with Neurologist who recommends restarting the patient on his home medication. Pt also with evidence of UTI on UA. Pt will be admitted to telemetry and monitored closely. 1. Seizure disorder Restart Home medication, Vimpat Seizure precautions Ativan 1 mg q2h prn Neurology consulted, Dr. Goodwin 2. CVA Speech and swallow eval NPO diet Neurology consulted Start ASA and continue statin 3. UTI Follow urine culture Adrianepritesh 4. Transaminits Hep panel ordered Recheck in AM 5. Hx of HTN Hold amlodipine at his time 6. Hx of depression, dementia, and schizophrenia Restart home medication Psychiatry consulted, Dr. Garcia 7. PPX Protonix Zofran Heparin Seen, reviewed, and discussed with attending Elke, PGY-2 <Nicolas Grossman Q - Last Filed: 06/25/17 00:24> Results - Vital Signs Recent Vital Signs: Last Vital Signs Temp 102.4 F H 06/25/17 00:14 Pulse 94 H 06/24/17 22:56 Resp 20 06/24/17 22:56 BP 134/85 06/24/17 22:56 Pulse Ox 94 L 06/24/17 22:56 - Labs Result Diagrams: 06/24/17 19:50 06/24/17 19:50 Attending/Attestation - Attestation I have personally seen and examined this patient.: Yes I have fully participated in the care of the patient.: Yes I have reviewed all pertinent clinical information: Yes Notes (Text): 06/25/17 00:21 I agree with the above mentioned note by the resident with the addition/ exception of the followin51 y/o male with early onset dementia + psychiatric illness is being admitted for a change in mental status due either to an episode of seizure with a prolonged post-ictal phase vs CVA. Patient's reports that this has happened to him at least 2 times in the past with him returning to baseline after 36-48hrs. Will admit the patient to tele and follow up with neurology. At the time of my examination he was easly responsive to verbal stimulus but would not follow commands. He is protecting his airway and is hemodynamically stable so he is suitable for the telemetry floor.
[2017-06-24 22:47] LABS: SALICYLATE < 1 mg/dL (2.0-20.0)
[2017-06-24 22:48] LABS: ACETAMINOPHEN < 10.0 ug/ml (10.0-20.0)
[2017-06-24] MEDS ORDERED: Sodium Chloride 0.9% 1,000 ML IV SCH (23:45)
[2017-06-25] MEDS: LACOSAMIDE PO SCH ×2 (00:02→09:30)
[2017-06-25] MEDS: levETIRAcetam 1,000 MG in Sodium Chloride 0.9% 100 ML IV SCH ×2 (00:33→09:29)
[2017-06-25 07:26] LABS: MEAN CELL VOLUME 88.1 fl (80.0-105.0); MEAN PLATELET VOLUME 8.8 fl (7.0-11.0); RBC 4.37 10^6/uL (3.5-6.1); RED CELL DISTRIBUTION WIDTH 13.8 % (11.5-14.5); WHITE BLOOD COUNT 10.6 10^3/ul (4.5-11.0)
[2017-06-25 07:29] LABS: HEMOGLOBIN 13.1 g/dL (14.0-18.0)
[2017-06-25 07:56] LABS: ALB/GLOB RATIO 1.3 (1.1-1.8); ALBUMIN 3.9 g/dL (3.0-4.8); ALT/SGPT 71 U/L (7-56); AST/SGOT 48 U/L (15-59); BLOOD UREA NITROGEN 27 mg/dL (7-21); CALCIUM 8.8 mg/dL (8.4-10.5); GFR AFRICAN-AMERICAN > 60; GFR NON-AFRICAN AMERICAN > 60
[2017-06-25] MEDS: cefTRIAXone 1 gm 1 GM/100 ML BAG IVPB SCH (09:29)
--- NOTE | 2017-06-25 09:56 | RAD ---
HISTORY: code stroke COMPARISON: No prior. FINDINGS: LUNGS: No active pulmonary disease. PLEURA: No significant pleural effusion identified, no pneumothorax apparent. CARDIOVASCULAR: No radiographic findings to suggest acute or significant cardiovascular disease. OSSEOUS STRUCTURES: No significant abnormalities. VISUALIZED UPPER ABDOMEN: Normal. OTHER FINDINGS: None. IMPRESSION: No active disease. No preliminary report provided by emergency department personnel.
--- NOTE | 2017-06-25 15:38 | CP.PCM.PN ---
<Guillermo [place] - Last Filed: 06/25/17 16:11> Subjective - Date & Time of Evaluation Date of Evaluation: 06/25/17 Time of Evaluation: 07:45 - Subjective Subjective: Guillermo [place] DO, PGY-1, Hospitalist Service Dr. Stallworth Patient seen and examined at bedside. Patient is resting comfortably. Nurse reports no events overnight. Objective - Vital Signs/Intake and Output Vital Signs (last 24 hours): Temp Pulse Resp BP Pulse Ox 98.5 F 72 19 123/80 97 06/25/17 12:00 06/25/17 12:00 06/25/17 12:00 06/25/17 12:00 06/25/17 06:00 Intake and Output: 06/25/17 06/25/17 06:59 18:59 Intake Total 800 Balance 800 - Medications Medications: Current Medications Acetaminophen (Tylenol 650 Mg Supp) 650 mg RC Q4H PRN PRN Reason: Fever >100.4 F Last Admin: 06/25/17 06:29 Dose: 650 mg Aspirin (Aspirin Chewable) 81 mg PO DAILY [facility] Last Admin: 06/25/17 09:31 Dose: Not Given Atorvastatin Calcium (Lipitor) 40 mg PO HS [facility] Donepezil HCl (Aricept) 5 mg PO HS [facility] Heparin Sodium (Porcine) (Heparin) 5,000 units SC Q12 [facility] PRN Reason: Protocol Last Admin: 06/25/17 09:30 Dose: 5,000 units Ceftriaxone Sodium (Rocephin 1 Gram Ivpb) 1 gm in 100 mls @ 100 mls/hr IVPB DAILY [facility] PRN Reason: Protocol Last Admin: 06/25/17 09:29 Dose: 100 mls/hr Levetiracetam 1,000 mg/ Sodium (Chloride) 110 mls @ 460 mls/hr IV Q12 [facility] Last Admin: 06/25/17 09:29 Dose: 460 mls/hr Dextrose/Sodium Chloride (Dextrose 5%/0.9% Ns 1000 Ml) 1,000 mls @ 100 mls/hr IV .Q10H [facility] Lorazepam (Ativan) 1 mg IVP Q2H PRN; Protocol PRN Reason: seizures Non-Formulary Medication (Lacosamide [Vimpat]) 1 tab PO BID [facility] Last Admin: 08/12/17 09:30 Dose: Not Given Ondansetron HCl (Zofran Inj) 4 mg IVP Q4H PRN PRN Reason: Nausea/Vomiting Pantoprazole Sodium (Protonix Inj) 40 mg IVP DAILY [facility] Last Admin: 06/25/17 09:30 Dose: 40 mg Risperidone (Risperdal Tab) 2 mg PO DAILY [facility] PRN Reason: Protocol Last Admin: 06/25/17 09:31 Dose: Not Given Risperidone (Risperdal Tab) 3 mg PO HS [facility] PRN Reason: Protocol - Labs Labs: 06/25/17 06:00 06/25/17 06:00 PT 11.4 Seconds (9.9-11.8) 06/24/17 19:50 INR 1.06 (0.93-1.08) 06/24/17 19:50 APTT 24.1 Seconds (23.7-30.8) 06/24/17 19:50 - Head Exam Additional comments: - Constitutional Appears: Non-toxic, No Acute Distress Additional comments: Obtunded - Head Exam Head Exam: ATRAUMATIC, NORMAL INSPECTION, NORMOCEPHALIC - Eye Exam Eye Exam: Normal appearance Pupil Exam: PERRL - ENT Exam ENT Exam: Mucous Membranes Moist - Neck Exam Neck exam: Positive for: Normal Inspection. Negative for: Lymphadenopathy - Respiratory Exam Respiratory Exam: Clear to Auscultation Bilateral, NORMAL BREATHING PATTERN. absent: Rhonchi, Wheezes - Cardiovascular Exam Cardiovascular Exam: RRR, +S1, +S2 - GI/Abdominal Exam GI & Abdominal Exam: Normal Bowel Sounds, Soft. absent: Tenderness - Extremities Exam Extremities exam: Positive for: normal inspection. Negative for: calf tenderness, tenderness - Neurological Exam Additional comments: Obtunded, responsive to painful stimuli - Skin Skin Exam: Normal Color, Warm Assessment and Plan - Assessment and Plan (Free Text) Assessment: 51 y/o M with PMH of HTN, HLD, anxiety, depression, seizure disorder, schizophrenia, and early onset alzheimer's dementia presents with likely seizure episode in the psychiatry unit. Pt received Head CT which showed mild atrophy and age-indeterminate lacunar infarcts in the basal ganglia with no acute bleed. Case discussed with Neurologist who recommends restarting the patient on his home medication. Pt also with evidence of UTI on UA. Pt will be admitted to telemetry and monitored closely. Plan: 1) Seizure versus CVA, or both: more likely seizure given no focal neurologic deficits. Keppra 500 mg BID Seizure precautions Ativan 1 mg q2h PRN Neurology consulted, appreciate recommendations. Non-contrast CT of the head shows no acute intracranial bleed. Bedside swallow evaluation demonstrates moderate oropharyngeal dysphagia with high risk for aspiration. Speech Language Pathologist recommends to keep patient NPO. 2) Questionable UTI Patient started on ceftriaxone, may need to reconsider, unless urine culture show otherwise. 3) Elevated LFTs, resolved Total bilirubin 2.0, will trend with daily CMP 4) Dyslipidemia: 40 mg of Atorvastatin 5) Dementia and Schizophrenia: Will restart home medications once patient is awake and psychiatry has been consulted. 6) GI prophylaxis with 40 mg of Protonix <Federica WRIGHT,Ashleyinezcrystal - Last Filed: 06/25/17 16:31> Objective - Vital Signs/Intake and Output Vital Signs (last 24 hours): Temp Pulse Resp BP Pulse Ox 98.5 F 72 19 123/80 97 06/25/17 12:00 06/25/17 12:00 06/25/17 12:00 06/25/17 12:00 06/25/17 06:00 Intake and Output: 06/25/17 06/25/17 06:59 18:59 Intake Total 800 Balance 800 - Medications Medications: Current Medications Acetaminophen (Tylenol 650 Mg Supp) 650 mg RC Q4H PRN PRN Reason: Fever >100.4 F Last Admin: 06/25/17 06:29 Dose: 650 mg Aspirin (Aspirin Chewable) 81 mg PO DAILY [facility] Last Admin: 06/25/17 09:31 Dose: Not Given Atorvastatin Calcium (Lipitor) 40 mg PO HS [facility] Donepezil HCl (Aricept) 5 mg PO HS [facility] Heparin Sodium (Porcine) (Heparin) 5,000 units SC Q12 [facility] PRN Reason: Protocol Last Admin: 06/25/17 09:30 Dose: 5,000 units Ceftriaxone Sodium (Rocephin 1 Gram Ivpb) 1 gm in 100 mls @ 100 mls/hr IVPB DAILY [facility] PRN Reason: Protocol Last Admin: 06/25/17 09:29 Dose: 100 mls/hr Levetiracetam 1,000 mg/ Sodium (Chloride) 110 mls @ 460 mls/hr IV Q12 [facility] Last Admin: 06/25/17 09:29 Dose: 460 mls/hr Dextrose/Sodium Chloride (Dextrose 5%/0.9% Ns 1000 Ml) 1,000 mls @ 100 mls/hr IV .Q10H [facility] Lorazepam (Ativan) 1 mg IVP Q2H PRN; Protocol PRN Reason: seizures Non-Formulary Medication (Lacosamide [Vimpat]) 1 tab PO BID [facility] Last Admin: 06/25/17 09:30 Dose: Not Given Ondansetron HCl (Zofran Inj) 4 mg IVP Q4H PRN PRN Reason: Nausea/Vomiting Pantoprazole Sodium (Protonix Inj) 40 mg IVP DAILY [facility] Last Admin: 06/25/17 09:30 Dose: 40 mg Risperidone (Risperdal Tab) 2 mg PO DAILY [facility] PRN Reason: Protocol Last Admin: 06/25/17 09:31 Dose: Not Given Risperidone (Risperdal Tab) 3 mg PO HS [facility] PRN Reason: Protocol - Labs Labs: 06/25/17 06:00 06/25/17 06:00 PT 11.4 Seconds (9.9-11.8) 06/24/17 19:50 INR 1.06 (0.93-1.08) 06/24/17 19:50 APTT 24.1 Seconds (23.7-30.8) 06/24/17 19:50 Attending/Attestation - Attestation I have personally seen and examined this patient.: Yes I have fully participated in the care of the patient.: Yes I have reviewed all pertinent clinical information, including history, physical exam and plan: Yes Notes (Text): 06/25/17 16:29 Patient was seen and examined with medical record librarian. Agreed with resident assessment and plan. 51 y/o M with PMH of HTN, HLD, anxiety, depression, seizure disorder, schizophrenia, and early onset Alzheimer's dementia presents with likely seizure episode in the psychiatry unit. Pt received Head CT which showed mild atrophy and age-indeterminate lacunar infarcts in the basal ganglia with no acute bleed.Patient is on Keppra.He is having low grade fever, etiology UTI vs Aspiration.We will continue IV antibiotics and will follow up culture.Patient is still drowsy, we will keep him NPO and will continue IV fluid .We will follow up Neurology recommendation. Management plan was discussed in detail with patient Education was provided.
[2017-06-25] MEDS: Dextrose 5%/0.9% NS 1,000 ML IV SCH (17:32)
--- NOTE | 2017-06-25 18:55 | CARD ---
APPROVED REPORT EKG Measurement Heart [id number] <Conclusion> arm lead reversal, Normal sinus rhythm Abnormal ECG
--- NOTE | 2017-06-25 21:03 | CP.PCM.CON ---
History of Present Illness - History of Present Illness History of Present Illness: Mr. Chase is a 51-year-old man with a past medical history of schizophrenia, dementia and epilepsy who apparently missed a few doses of his Vimpat and lost consciousness, thought to have had a seizure. Vimpat was not available in the hospital, so he was started on Keppra. Neurology was consulted to assist with the management and care. When I saw the patient, he was somnolent, but followed simple commands and answered a few questions. Review of Systems - Review of Systems All systems: reviewed and no additional remarkable complaints except Past Patient History - Infectious Disease Hx of Infectious Diseases: None - Tetanus Immunizations Tetanus Immunization: Unknown - Past Medical History & Family History Past Medical History?: Yes - Past Social History Smoking Status: Unknown If Ever Smoked - CARDIAC Hx Hypertension: Yes - PULMONARY Hx Respiratory Disorders: No Hx Tuberculosis: No - NEUROLOGICAL Hx Alzheimer's Disease: Yes Hx Dementia: Yes Hx Seizures: Yes - HEENT Hx HEENT Problems: No - RENAL Hx Chronic Kidney Disease: No - ENDOCRINE/METABOLIC Hx Endocrine Disorders: No - HEMATOLOGICAL/ONCOLOGICAL Hx Blood Disorders: No Hx Cancer: No - INTEGUMENTARY Hx Dermatological Problems: No - MUSCULOSKELETAL/RHEUMATOLOGICAL Hx Falls: No - GASTROINTESTINAL Hx Gastrointestinal Disorders: No - GENITOURINARY/GYNECOLOGICAL Hx Genitourinary Disorders: No Hx Sexually Transmitted Disorders: No - PSYCHIATRIC Hx Anxiety: Yes Hx Bipolar Disorder: Yes Hx Depression: Yes Hx Hallucinations: Yes Hx Schizophrenia: Yes - SURGICAL HISTORY Hx Surgeries: Yes (Kidney surgery) - ANESTHESIA Hx Anesthesia: Yes Hx Anesthesia Reactions: No Hx Malignant Hyperthermia: No Meds Allergies/Adverse Reactions: Allergies Allergy/AdvReac Type Severity Reaction Status Date / Time No Known Allergies Allergy Verified 06/24/17 06:20 - Medications Medications: Current Medications Acetaminophen (Tylenol 650 Mg Supp) 650 mg RC Q4H PRN PRN Reason: Fever >100.4 F Last Admin: 06/25/17 06:29 Dose: 650 mg Aspirin (Aspirin Chewable) 81 mg PO DAILY [facility] Last Admin: 06/25/17 09:31 Dose: Not Given Atorvastatin Calcium (Lipitor) 40 mg PO HS [facility] Donepezil HCl (Aricept) 5 mg PO HS [facility] Heparin Sodium (Porcine) (Heparin) 5,000 units SC Q12 [facility] PRN Reason: Protocol Last Admin: 06/25/17 09:30 Dose: 5,000 units Ceftriaxone Sodium (Rocephin 1 Gram Ivpb) 1 gm in 100 mls @ 100 mls/hr IVPB DAILY [facility] PRN Reason: Protocol Last Admin: 06/25/17 09:29 Dose: 100 mls/hr Dextrose/Sodium Chloride (Dextrose 5%/0.9% Ns 1000 Ml) 1,000 mls @ 100 mls/hr IV .Q10H [facility] Last Admin: 06/25/17 17:32 Dose: 100 mls/hr Lorazepam (Ativan) 1 mg IVP Q2H PRN; Protocol PRN Reason: seizures Non-Formulary Medication (Lacosamide [Vimpat]) 1 tab PO BID [facility] Last Admin: 06/25/17 09:30 Dose: Not Given Ondansetron HCl (Zofran Inj) 4 mg IVP Q4H PRN PRN Reason: Nausea/Vomiting Pantoprazole Sodium (Protonix Inj) 40 mg IVP DAILY [facility] Last Admin: 06/25/17 09:30 Dose: 40 mg Risperidone (Risperdal Tab) 2 mg PO DAILY [facility] PRN Reason: Protocol Last Admin: 06/25/17 09:31 Dose: Not Given Risperidone (Risperdal Tab) 3 mg PO HS [facility] PRN Reason: Protocol Physical Exam - Constitutional Appears: Well - Head Exam Head Exam: ATRAUMATIC, NORMAL INSPECTION, NORMOCEPHALIC - Eye Exam Eye Exam: EOMI, Normal appearance, PERRL - ENT Exam ENT Exam: Mucous Membranes Moist, Normal Exam - Neck Exam Neck exam: Positive for: Normal Inspection - Respiratory Exam Respiratory Exam: Clear to Auscultation Bilateral, NORMAL BREATHING PATTERN - Cardiovascular Exam Cardiovascular Exam: REGULAR RHYTHM, +S1, +S2 - GI/Abdominal Exam GI & Abdominal Exam: Normal Bowel Sounds, Soft. absent: Tenderness - Rectal Exam Rectal Exam: Deferred - Extremities Exam Extremities exam: Positive for: normal inspection - Back Exam Back exam: NORMAL INSPECTION - Neurological Exam Neurological exam: Altered, CN II-XII Intact, Reflexes Normal Additional comments: Moves all extremities and follows simple commands. Reflexes normal. gait not assessed. - Psychiatric Exam Psychiatric exam: Flat Affect - Skin Skin Exam: Dry, Intact, Normal Color, Warm Results - Vital Signs Recent Vital Signs: Last Vital Signs Temp 98.4 F 06/25/17 17:09 Pulse 65 06/25/17 17:09 Resp 20 06/25/17 17:09 BP 111/71 06/25/17 17:09 Pulse Ox 98 06/25/17 17:09 - Labs Result Diagrams: 06/25/17 06:00 06/25/17 06:00 Labs: Laboratory Results - last 24 hr 06/25/17 06/25/17 06/25/17 06:00 06:00 07:37 WBC 10.6 RBC 4.37 Hgb 13.1 L D Hct 38.5 L MCV 88.1 MCH 30.0 MCHC 34.0 RDW 13.8 Plt Count 224 MPV 8.8 Sodium 138 Potassium 3.8 Chloride 105 Carbon Dioxide 22 Anion Gap 15 BUN 27 H Creatinine 1.1 Est GFR ( Amer) > 60 Est GFR (Non-Af Amer) > 60 POC Glucose (mg/dL) 131 H Random Glucose 110 Calcium 8.8 Total Bilirubin 2.0 H AST 48 ALT 71 H Alkaline Phosphatase 74 Total Protein 6.9 Albumin 3.9 Globulin 3.0 Albumin/Globulin Ratio 1.3 06/25/17 06/25/17 11:54 16:32 WBC RBC Hgb Hct MCV MCH MCHC RDW Plt Count MPV Sodium Potassium Chloride Carbon Dioxide Anion Gap BUN Creatinine Est GFR ( Amer) Est GFR (Non-Af Amer) POC Glucose (mg/dL) 114 H 122 H Random Glucose Calcium Total Bilirubin AST ALT Alkaline Phosphatase Total Protein Albumin Globulin Albumin/Globulin Ratio - Imaging and Cardiology CT scan - head Status: Image reviewed by me, Report reviewed by me (Chronic basal ganglia infarcts and watershed appearing hypodensity in the right MCA/ARCELIA region. ) Assessment & Plan (1) Altered mental status Assessment and Plan: Likely due to seizure as a result of subtherapeutic AED levels. I recommend starting Depakote 500 mg IV BID as a mood stabilizer and anti-epileptic. Furthermore, the CT scan is concerning for chronic infarcts and these may contribute. I recommend the followin. Telemetry 2. MRI of the brain without contrast and MRA of the head/neck without contrast 3. Continuing aspirin 81 mg daily, atorvastatin 40 mg daily 4. Echocardiogram 5. Evaluation with PT/OT. 6. DVT Px. Thank you. Status: Acute Priority: Medium
[2017-06-25] MEDS: Valproate 500 MG in Sodium Chloride 0.9% 100 ML IVPB SCH (22:15)
[2017-06-26] MEDS: Dextrose 5%/0.9% NS 1,000 ML IV SCH ×2 (04:42→22:17)
[2017-06-26 08:10] LABS: ALB/GLOB RATIO 1.2 (1.1-1.8); ALBUMIN 3.7 g/dL (3.0-4.8); ALT/SGPT 69 U/L (7-56); AST/SGOT 46 U/L (15-59); BLOOD UREA NITROGEN 18 mg/dL (7-21); CALCIUM 8.5 mg/dL (8.4-10.5); GFR AFRICAN-AMERICAN > 60; GFR NON-AFRICAN AMERICAN > 60
[2017-06-26 08:13] LABS: HEMOGLOBIN 12.8 g/dL (14.0-18.0); MEAN CELL VOLUME 88.8 fl (80.0-105.0); MEAN CORPUSCULAR HEMOGLOBIN 29.9 pg (25.0-35.0); MEAN CORPUSCULAR HGB CONC 33.7 g/dl (31.0-37.0); MEAN PLATELET VOLUME 9.3 fl (7.0-11.0); RBC 4.28 10^6/uL (3.5-6.1); RED CELL DISTRIBUTION WIDTH 13.5 % (11.5-14.5); WHITE BLOOD COUNT 7.5 10^3/ul (4.5-11.0)
[2017-06-26] MEDS: Valproate 500 MG in Sodium Chloride 0.9% 100 ML IVPB SCH ×2 (09:26→22:17)
[2017-06-26] MEDS: cefTRIAXone 1 gm 1 GM/100 ML BAG IVPB SCH (09:30)
--- NOTE | 2017-06-26 12:39 | CP.PCM.PN ---
<Cyn Epperson - Last Filed: 06/26/17 13:02> Subjective - Date & Time of Evaluation Date of Evaluation: 06/26/17 Time of Evaluation: 07:55 - Subjective Subjective: Cyn Epperson DO, PGY-1, Internal Medicine, Hospitalist Service Patient seen and examined at bedside. Per nursing no acute events overnight. Patient is more awake today. Reports that prior to admission he was not taking his medications. Denies any F/C, headaches, dizziness, cp, palpitations, sob, abdominal pain, urinary symptoms, changes in bowel habits. Objective - Vital Signs/Intake and Output Vital Signs (last 24 hours): Temp Pulse Resp BP Pulse Ox 98.5 F 48 L 18 91/53 L 99 06/26/17 06:00 06/26/17 06:00 06/26/17 06:00 06/26/17 06:00 06/26/17 06:00 Intake and Output: 06/26/17 06/26/17 06:59 18:59 Intake Total 1200 Balance 1200 - Medications Medications: Current Medications Acetaminophen (Tylenol 650 Mg Supp) 650 mg RC Q4H PRN PRN Reason: Fever >100.4 F Last Admin: 06/25/17 06:29 Dose: 650 mg Aspirin (Aspirin Chewable) 81 mg PO DAILY [facility] Last Admin: 06/26/17 09:30 Dose: 81 mg Atorvastatin Calcium (Lipitor) 40 mg PO HS [facility] Last Admin: 06/25/17 22:18 Dose: Not Given Donepezil HCl (Aricept) 5 mg PO HS [facility] Last Admin: 06/25/17 22:17 Dose: Not Given Heparin Sodium (Porcine) (Heparin) 5,000 units SC Q12 [facility] PRN Reason: Protocol Last Admin: 06/26/17 09:29 Dose: 5,000 units Ceftriaxone Sodium (Rocephin 1 Gram Ivpb) 1 gm in 100 mls @ 100 mls/hr IVPB DAILY [facility] PRN Reason: Protocol Last Admin: 06/26/17 09:30 Dose: 100 mls/hr Dextrose/Sodium Chloride (Dextrose 5%/0.9% Ns 1000 Ml) 1,000 mls @ 100 mls/hr IV .Q10H [facility] Last Admin: 06/26/17 04:42 Dose: 100 mls/hr Valproate Sodium 500 mg/ (Sodium Chloride) 105 mls @ 100 mls/hr IVPB Q12 [facility] Last Admin: 06/26/17 09:26 Dose: 100 mls/hr Lorazepam (Ativan) 1 mg IVP Q2H PRN; Protocol PRN Reason: seizures Ondansetron HCl (Zofran Inj) 4 mg IVP Q4H PRN PRN Reason: Nausea/Vomiting Pantoprazole Sodium (Protonix Inj) 40 mg IVP DAILY [facility] Last Admin: 06/26/17 09:30 Dose: 40 mg Risperidone (Risperdal Tab) 2 mg PO DAILY [facility] PRN Reason: Protocol Last Admin: 06/25/17 09:31 Dose: Not Given Risperidone (Risperdal Tab) 3 mg PO HS [facility] PRN Reason: Protocol Last Admin: 06/25/17 22:18 Dose: Not Given - Labs Labs: 06/26/17 07:42 06/26/17 07:42 PT 11.4 Seconds (9.9-11.8) 06/24/17 19:50 INR 1.06 (0.93-1.08) 06/24/17 19:50 APTT 24.1 Seconds (23.7-30.8) 06/24/17 19:50 - Constitutional Appears: Non-toxic, No Acute Distress - Head Exam Head Exam: ATRAUMATIC, NORMAL INSPECTION - Eye Exam Eye Exam: EOMI, Normal appearance Pupil Exam: NORMAL ACCOMODATION - ENT Exam ENT Exam: Mucous Membranes Moist - Neck Exam Neck Exam: Full ROM - Respiratory Exam Respiratory Exam: Clear to Ausculation Bilateral, NORMAL BREATHING PATTERN. absent: Rales, Rhonchi, Wheezes - Cardiovascular Exam Cardiovascular Exam: REGULAR RHYTHM, +S1, +S2 - GI/Abdominal Exam GI & Abdominal Exam: Soft, Normal Bowel Sounds. absent: Rigid, Tenderness - Extremities Exam Extremities Exam: Full ROM, Normal Inspection. absent: Tenderness - Back Exam Back Exam: NORMAL INSPECTION - Neurological Exam Neurological Exam: Alert, Awake, Oriented x3 - Psychiatric Exam Psychiatric exam: Normal Affect, Normal Mood - Skin Skin Exam: Normal Color, Warm Assessment and Plan - Assessment and Plan (Free Text) Assessment: 51 y/o M with PMH of HTN, HLD, anxiety, depression, seizure disorder, schizophrenia, and early onset alzheimer's dementia presents with likely seizure episode in the psychiatry unit. Pt received Head CT which showed mild atrophy and age-indeterminate lacunar infarcts in the basal ganglia with no acute bleed. Case discussed with Neurologist who recommends restarting the patient on his home medication. Pt also with evidence of UTI on UA. Pt will be admitted to telemetry and monitored closely. Plan: 1) AMS likely 2/2 Seizure disorder, rule out CVA vs TIA - No focal or neurological deficits appreciated - Patient is more awake and conversive today - Keppra discontinued - Continue Depakote 500mg Q12 - Seizure precautions, aspiration precautions - Ativan 1 mg q2h PRN seizures - Continue ASA, Lipitor - Neurology consulted, appreciate recommendations. - CT of the head shows mild atropy and small vessel disease, age indeterminant lacunar infarcts in basal ganglia - F/U MRI of brain, MRA head/neck - Speech and Swallow recommending soft regular diet - F/U PT/OT recommendations 2) Hx of epilepsy -Continue Depakote 500mg Q12H -Neurology on consult, f/u recommendations 3) Urinary Tract Infection - UA + nitrates, many bacteria - Continue Rocephin 1 gm daily - F/U urine cultures - Blood cx no growth x 24 hours 4) Elevated LFTs, Hyperbilirubinemia, improving - Total bilirubin 2.0 --> 1.5 - AST/ALT: 46/69 - F/U daily CMP 5) Hyperlipidemia - Continue 40 mg of Atorvastatin 6) Dementia and Schizophrenia: - Continue Resperidone 2mg PO daily - Continue Resperidone 3mg PO HS - Aricept - F/U Psychiatry recommendations 6) GI/DVT prophylaxis - 40 mg of Protonix - Heparin 5000 U Q12H <Federica WRIGHT,Humphrey - Last Filed: 06/26/17 14:58> Objective - Vital Signs/Intake and Output Vital Signs (last 24 hours): Temp Pulse Resp BP Pulse Ox 97 F L 61 20 130/92 H 99 06/26/17 12:00 06/26/17 12:00 06/26/17 12:00 06/26/17 12:00 06/26/17 06:00 Intake and Output: 06/26/17 06/26/17 06:59 18:59 Intake Total 1200 Balance 1200 - Medications Medications: Current Medications Acetaminophen (Tylenol 650 Mg Supp) 650 mg RC Q4H PRN PRN Reason: Fever >100.4 F Last Admin: 06/25/17 06:29 Dose: 650 mg Aspirin (Aspirin Chewable) 81 mg PO DAILY [facility] Last Admin: 06/26/17 09:30 Dose: 81 mg Atorvastatin Calcium (Lipitor) 40 mg PO HS [facility] Last Admin: 06/25/17 22:18 Dose: Not Given Donepezil HCl (Aricept) 5 mg PO HS [facility] Last Admin: 06/25/17 22:17 Dose: Not Given Heparin Sodium (Porcine) (Heparin) 5,000 units SC Q12 [facility] PRN Reason: Protocol Last Admin: 06/26/17 09:29 Dose: 5,000 units Ceftriaxone Sodium (Rocephin 1 Gram Ivpb) 1 gm in 100 mls @ 100 mls/hr IVPB DAILY [facility] PRN Reason: Protocol Last Admin: 06/26/17 09:30 Dose: 100 mls/hr Dextrose/Sodium Chloride (Dextrose 5%/0.9% Ns 1000 Ml) 1,000 mls @ 100 mls/hr IV .Q10H [facility] Last Admin: 06/26/17 04:42 Dose: 100 mls/hr Valproate Sodium 500 mg/ (Sodium Chloride) 105 mls @ 100 mls/hr IVPB Q12 [facility] Last Admin: 06/26/17 09:26 Dose: 100 mls/hr Lorazepam (Ativan) 1 mg IVP Q2H PRN; Protocol PRN Reason: seizures Ondansetron HCl (Zofran Inj) 4 mg IVP Q4H PRN PRN Reason: Nausea/Vomiting Pantoprazole Sodium (Protonix Inj) 40 mg IVP DAILY [facility] Last Admin: 06/26/17 09:30 Dose: 40 mg Risperidone (Risperdal Tab) 2 mg PO DAILY [facility] PRN Reason: Protocol Last Admin: 06/25/17 09:31 Dose: Not Given Risperidone (Risperdal Tab) 3 mg PO HS [facility] PRN Reason: Protocol Last Admin: 06/25/17 22:18 Dose: Not Given - Labs Labs: 06/26/17 07:42 06/26/17 07:42 PT 11.4 Seconds (9.9-11.8) 06/24/17 19:50 INR 1.06 (0.93-1.08) 06/24/17 19:50 APTT 24.1 Seconds (23.7-30.8) 06/24/17 19:50 Attending/Attestation - Attestation I have personally seen and examined this patient.: Yes I have fully participated in the care of the patient.: Yes I have reviewed all pertinent clinical information, including history, physical exam and plan: Yes Notes (Text): 06/26/17 14:55 Patient was seen and examined with medical staff specialist. 51 yrs old male with PMH of HTN, HLD, anxiety, depression, seizure disorder, schizophrenia, and early onset Alzheimer's dementia presents with likely seizure episode in the psychiatry unit. Head CT showed mild atrophy and age- indeterminate lacunar infarcts in the basal ganglia with no acute bleed.Patient is on Depakote.His mental staus has improved.He is alert and awake today, was likely Post ictal yesterday. We will follow up MRI of Brain, if unremarkable then he be discharged to Psychiatry. Neurology follow up is appreciated. Management plan was discussed in detail with patient Education was provided. 06/26/17 14:56
--- NOTE | 2017-06-26 14:47 | CP.PCM.PN ---
Subjective - Date & Time of Evaluation Date of Evaluation: 06/26/17 Time of Evaluation: 14:42 - Subjective Subjective: Mr. Chase was seen and examined today at bedside. He was much more awake and alert today. He was pleasant and complied with the exam. He had no complaints and there were no acute events overnight. Objective - Vital Signs/Intake and Output Vital Signs (last 24 hours): Temp Pulse Resp BP Pulse Ox 97 F L 61 20 130/92 H 99 06/26/17 12:00 06/26/17 12:00 06/26/17 12:00 06/26/17 12:00 06/26/17 06:00 Intake and Output: 06/26/17 06/26/17 06:59 18:59 Intake Total 1200 Balance 1200 - Medications Medications: Current Medications Acetaminophen (Tylenol 650 Mg Supp) 650 mg RC Q4H PRN PRN Reason: Fever >100.4 F Last Admin: 06/25/17 06:29 Dose: 650 mg Aspirin (Aspirin Chewable) 81 mg PO DAILY [facility] Last Admin: 06/26/17 09:30 Dose: 81 mg Atorvastatin Calcium (Lipitor) 40 mg PO HS [facility] Last Admin: 06/25/17 22:18 Dose: Not Given Donepezil HCl (Aricept) 5 mg PO HS [facility] Last Admin: 06/25/17 22:17 Dose: Not Given Heparin Sodium (Porcine) (Heparin) 5,000 units SC Q12 [facility] PRN Reason: Protocol Last Admin: 06/26/17 09:29 Dose: 5,000 units Ceftriaxone Sodium (Rocephin 1 Gram Ivpb) 1 gm in 100 mls @ 100 mls/hr IVPB DAILY [facility] PRN Reason: Protocol Last Admin: 06/26/17 09:30 Dose: 100 mls/hr Dextrose/Sodium Chloride (Dextrose 5%/0.9% Ns 1000 Ml) 1,000 mls @ 100 mls/hr IV .Q10H [facility] Last Admin: 06/26/17 04:42 Dose: 100 mls/hr Valproate Sodium 500 mg/ (Sodium Chloride) 105 mls @ 100 mls/hr IVPB Q12 [facility] Last Admin: 06/26/17 09:26 Dose: 100 mls/hr Lorazepam (Ativan) 1 mg IVP Q2H PRN; Protocol PRN Reason: seizures Ondansetron HCl (Zofran Inj) 4 mg IVP Q4H PRN PRN Reason: Nausea/Vomiting Pantoprazole Sodium (Protonix Inj) 40 mg IVP DAILY [facility] Last Admin: 06/26/17 09:30 Dose: 40 mg Risperidone (Risperdal Tab) 2 mg PO DAILY [facility] PRN Reason: Protocol Last Admin: 06/25/17 09:31 Dose: Not Given Risperidone (Risperdal Tab) 3 mg PO HS [facility] PRN Reason: Protocol Last Admin: 06/25/17 22:18 Dose: Not Given - Labs Labs: 06/26/17 07:42 06/26/17 07:42 PT 11.4 Seconds (9.9-11.8) 06/24/17 19:50 INR 1.06 (0.93-1.08) 06/24/17 19:50 APTT 24.1 Seconds (23.7-30.8) 06/24/17 19:50 - Neurological Exam Neurological Exam: Alert, Awake, CN II-XII Intact, Normal Gait, Oriented x3, Reflexes Normal Neuro motor strength exam: Left Upper Extremity: 5, Right Upper Extremity: 5, Left Lower Extremity: 5, Right Lower Extremity: 5 Assessment and Plan (1) Altered mental status Assessment & Plan: Improved. He was likely post-ictal. Continue depakote 500 mg Q12 hours. May switch to PO (same dose). Follow MRI and if normal, may transfer back to psych. Thank you. Status: Acute
[2017-06-27 07:08] LABS: HEMOGLOBIN 13.3 g/dL (14.0-18.0); MEAN CORPUSCULAR HEMOGLOBIN 29.9 pg (25.0-35.0); MEAN CORPUSCULAR HGB CONC 34.4 g/dl (31.0-37.0); MEAN PLATELET VOLUME 9.1 fl (7.0-11.0); RBC 4.45 10^6/uL (3.5-6.1); RED CELL DISTRIBUTION WIDTH 13.1 % (11.5-14.5)
[2017-06-27 07:17] LABS: ALB/GLOB RATIO 1.3 (1.1-1.8); ALBUMIN 3.8 g/dL (3.0-4.8); ALT/SGPT 66 U/L (7-56); AST/SGOT 40 U/L (15-59); BLOOD UREA NITROGEN 10 mg/dL (7-21); CALCIUM 8.8 mg/dL (8.4-10.5); GFR AFRICAN-AMERICAN > 60; GFR NON-AFRICAN AMERICAN > 60; MAGNESIUM 1.8 mg/dL (1.7-2.2)
[2017-06-27] MEDS: Dextrose 5%/0.9% NS 1,000 ML IV SCH (07:34)
[2017-06-27 08:01] LABS: HEPATITIS B SURFACE AG NEGATIVE (NEGATIVE)
[2017-06-27 08:06] LABS: HEPATITIS A IGM NEGATIVE (NEGATIVE)
[2017-06-27 08:07] LABS: HEPATITIS B CORE AB NEGATIVE (NEGATIVE)
[2017-06-27 08:19] LABS: HEPATITIS C ANTIBODY NEGATIVE (NEGATIVE)
[2017-06-27] MEDS: cefTRIAXone 1 gm 1 GM/100 ML BAG IVPB SCH (09:32)
--- NOTE | 2017-06-27 09:34 | MRI ---
PROCEDURE: MRI BRAIN WITHOUT CONTRAST HISTORY: stroke and AMS COMPARISON: None. TECHNIQUE: Multiplanar, multisequence MR images of the brain were obtained without intravenous contrast enhancement. FINDINGS: HEMORRHAGE: None DWI: Scattered small acute cortical infarcts are seen in both hemispheres involving the right frontal and left temporal lobes. This distribution suggests an embolic source. Clinical correlation is suggested BRAIN PARENCHYMA: No mass effect or edema. Severe chronic microvascular disease is seen in the periventricular white matter. VENTRICLES: Unremarkable. No hydrocephalus. CRANIUM: Unremarkable. ORBITS: Grossly unremarkable. PARANASAL SINUSES/MASTOIDS: Clear VASCULAR SYSTEM: Skull base flow voids intact. OTHER FINDINGS: The report concurs with the preliminary [facility] report IMPRESSION: Scattered small acute cortical infarcts are seen in both hemispheres involving the right frontal and left temporal lobes. This distribution suggests an embolic source. Clinical correlation is suggested
--- NOTE | 2017-06-27 09:36 | MRI ---
PROCEDURE: Magnetic Resonance Angiography Brain HISTORY: stroke and ams COMPARISON: None available. TECHNIQUE: 3D time of flight MR angiography of the intracranial arteries was performed. Rotating maximum intensity projection images were generated. FINDINGS: INTERNAL CEREBRAL ARTERIES: Unremarkable. The skull base, petrous, cavernous and supraclinoid segments are bilaterally widely patient. ANTERIOR CEREBRAL ARTERIES: Unremarkable. A1 and A2 segments are widely patent. Smaller distal branches unremarkable, as visualized. MIDDLE CEREBRAL ARTERIES: Unremarkable. M1 and M2 segments are widely patent. Perisylvian branches grossly symmetric. POSTERIOR CIRCULATION: Basilar Artery: Unremarkable. Distal Vertebral Arteries: Unremarkable. Posterior Cerebral Arteries: Unremarkable. Posterior Inferior Cerebellar Arteries: Unremarkable. ANEURYSM/ VASCULAR MALFORMATIONS: None. OTHER FINDINGS: None. IMPRESSION: Unremarkable MR angiography of the brain.
[2017-06-27] MEDS: Valproate 500 MG in Sodium Chloride 0.9% 100 ML IVPB SCH ×2 (11:35→22:20)
--- NOTE | 2017-06-27 14:26 | CP.PCM.CON ---
History of Present Illness - History of Present Illness History of Present Illness: Mr. Chase was seen and examined today at bedside. He was found in NAD. There were no acute events overnight. I discussed the results of the MRI with him and informed him of the new infarcts that were noted. He expressed understanding with the diagnosis and the plan going forward. Review of Systems - Review of Systems All systems: reviewed and no additional remarkable complaints except Past Patient History - Infectious Disease Hx of Infectious Diseases: None - Tetanus Immunizations Tetanus Immunization: Unknown - Past Medical History & Family History Past Medical History?: Yes - Past Social History Smoking Status: Unknown If Ever Smoked - CARDIAC Hx Hypertension: Yes - PULMONARY Hx Respiratory Disorders: No Hx Tuberculosis: No - NEUROLOGICAL Hx Alzheimer's Disease: Yes Hx Dementia: Yes Hx Seizures: Yes - HEENT Hx HEENT Problems: No - RENAL Hx Chronic Kidney Disease: No - ENDOCRINE/METABOLIC Hx Endocrine Disorders: No - HEMATOLOGICAL/ONCOLOGICAL Hx Blood Disorders: No Hx Cancer: No - INTEGUMENTARY Hx Dermatological Problems: No - MUSCULOSKELETAL/RHEUMATOLOGICAL Hx Falls: No - GASTROINTESTINAL Hx Gastrointestinal Disorders: No - GENITOURINARY/GYNECOLOGICAL Hx Genitourinary Disorders: No Hx Sexually Transmitted Disorders: No - PSYCHIATRIC Hx Anxiety: Yes Hx Bipolar Disorder: Yes Hx Depression: Yes Hx Hallucinations: Yes Hx Schizophrenia: Yes - SURGICAL HISTORY Hx Surgeries: Yes (Kidney surgery) - ANESTHESIA Hx Anesthesia: Yes Hx Anesthesia Reactions: No Hx Malignant Hyperthermia: No Meds Allergies/Adverse Reactions: Allergies Allergy/AdvReac Type Severity Reaction Status Date / Time No Known Allergies Allergy Verified 06/24/17 06:20 - Medications Medications: Current Medications Acetaminophen (Tylenol 650 Mg Supp) 650 mg RC Q4H PRN PRN Reason: Fever >100.4 F Last Admin: 06/25/17 06:29 Dose: 650 mg Aspirin (Aspirin Chewable) 81 mg PO DAILY [facility] Last Admin: 06/27/17 09:33 Dose: 81 mg Atorvastatin Calcium (Lipitor) 40 mg PO HS [facility] Last Admin: 06/26/17 21:28 Dose: 40 mg Donepezil HCl (Aricept) 5 mg PO HS [facility] Last Admin: 06/26/17 21:28 Dose: 5 mg Heparin Sodium (Porcine) (Heparin) 5,000 units SC Q12 [facility] PRN Reason: Protocol Last Admin: 06/27/17 09:32 Dose: 5,000 units Ceftriaxone Sodium (Rocephin 1 Gram Ivpb) 1 gm in 100 mls @ 100 mls/hr IVPB DAILY [facility] PRN Reason: Protocol Last Admin: 06/27/17 09:32 Dose: 100 mls/hr Valproate Sodium 500 mg/ (Sodium Chloride) 105 mls @ 100 mls/hr IVPB Q12 [facility] Last Admin: 06/27/17 11:35 Dose: 100 mls/hr Lorazepam (Ativan) 1 mg IVP Q2H PRN; Protocol PRN Reason: seizures Ondansetron HCl (Zofran Inj) 4 mg IVP Q4H PRN PRN Reason: Nausea/Vomiting Pantoprazole Sodium (Protonix Inj) 40 mg IVP DAILY [facility] Last Admin: 06/27/17 09:32 Dose: 40 mg Risperidone (Risperdal Tab) 2 mg PO DAILY [facility] PRN Reason: Protocol Last Admin: 06/27/17 09:32 Dose: 2 mg Risperidone (Risperdal Tab) 3 mg PO HS [facility] PRN Reason: Protocol Last Admin: 06/26/17 21:28 Dose: 3 mg Physical Exam - Neurological Exam Additional comments: Neurologically unchanged from previous examination. Results - Vital Signs Recent Vital Signs: Last Vital Signs Temp 97.3 F L 06/27/17 12:00 Pulse 66 06/27/17 12:00 Resp 18 06/27/17 12:00 BP 141/78 06/27/17 12:00 Pulse Ox 98 06/27/17 06:00 - Labs Result Diagrams: 06/27/17 06:30 06/27/17 06:30 Labs: Laboratory Results - last 24 hr 06/24/17 06/26/17 06/26/17 23:00 11:24 16:25 WBC RBC Hgb Hct MCV MCH MCHC RDW Plt Count MPV Sodium Potassium Chloride Carbon Dioxide Anion Gap BUN Creatinine Est GFR ( Amer) Est GFR (Non-Af Amer) POC Glucose (mg/dL) 119 H 92 Random Glucose Calcium Phosphorus Magnesium Total Bilirubin AST ALT Alkaline Phosphatase Total Protein Albumin Globulin Albumin/Globulin Ratio Hepatitis A IgM Ab Negative Hep Bs Antigen Negative Hep B Core IgM Ab Negative Hepatitis C Antibody Negative 06/26/17 06/27/17 06/27/17 22:06 06:30 06:30 WBC 6.0 RBC 4.45 Hgb 13.3 L Hct 38.7 L MCV 87.0 MCH 29.9 MCHC 34.4 RDW 13.1 Plt Count 200 MPV 9.1 Sodium 140 Potassium 4.2 Chloride 107 Carbon Dioxide 23 Anion Gap 14 BUN 10 Creatinine 0.7 Est GFR ( Amer) > 60 Est GFR (Non-Af Amer) > 60 POC Glucose (mg/dL) 96 Random Glucose 107 Calcium 8.8 Phosphorus 2.9 Magnesium 1.8 Total Bilirubin 1.1 AST 40 ALT 66 H Alkaline Phosphatase 77 Total Protein 6.9 Albumin 3.8 Globulin 3.0 Albumin/Globulin Ratio 1.3 Hepatitis A IgM Ab Hep Bs Antigen Hep B Core IgM Ab Hepatitis C Antibody 06/27/17 06/27/17 07:21 11:41 WBC RBC Hgb Hct MCV MCH MCHC RDW Plt Count MPV Sodium Potassium Chloride Carbon Dioxide Anion Gap BUN Creatinine Est GFR ( Amer) Est GFR (Non-Af Amer) POC Glucose (mg/dL) 114 H 113 H Random Glucose Calcium Phosphorus Magnesium Total Bilirubin AST ALT Alkaline Phosphatase Total Protein Albumin Globulin Albumin/Globulin Ratio Hepatitis A IgM Ab Hep Bs Antigen Hep B Core IgM Ab Hepatitis C Antibody - Imaging and Cardiology MRI - head Status: Image reviewed by me, Report reviewed by me (Multifocal, bilateral and in anterior and posterior circulation punctate infarcts consitent with embolic etiology. ) Assessment & Plan (1) Ischemic stroke Assessment and Plan: Likely due to either cardiac dysrrhythmia or other cardiac or aortic etiology. I recommend the followin. Rule out atrial fibrillation or other dysarrhythmia with telemetry and prolonged cardiac monitoring 2. Echocardiogram with bubble study 3. Continue aspirin 81 mg daily 4. Continue lipitor 40 mg daily 5. PT/OT eval 6. DVT Px Status: Acute Priority: High
--- NOTE | 2017-06-27 17:14 | CP.PCM.PN ---
<FANY VALLE - Last Filed: 06/27/17 17:01> Subjective - Date & Time of Evaluation Date of Evaluation: 06/27/17 Time of Evaluation: 07:30 - Subjective Subjective: MEDICINE PROGRESS NOTE: Pt seen and assessed at bedside. Pt has no new complaints at this time and there were no acute events noted overnight. Pt denies any headache, dizziness, fever, chills, shortness of breath, chest pain, palpitations, abdominal pain, N/ V, diarrhea, any urinary symptoms or any numbness/tingling/weakness of any extremity. Objective - Vital Signs/Intake and Output Vital Signs (last 24 hours): Temp Pulse Resp BP Pulse Ox 97.3 F L 81 18 141/78 98 06/27/17 12:00 06/27/17 14:00 06/27/17 12:00 06/27/17 12:00 06/27/17 06:00 Intake and Output: 06/27/17 06/27/17 06:59 18:59 Intake Total 1680 Balance 1680 - Medications Medications: Current Medications Acetaminophen (Tylenol 650 Mg Supp) 650 mg RC Q4H PRN PRN Reason: Fever >100.4 F Last Admin: 06/25/17 06:29 Dose: 650 mg Aspirin (Aspirin Chewable) 81 mg PO DAILY [facility] Last Admin: 06/27/17 09:33 Dose: 81 mg Atorvastatin Calcium (Lipitor) 40 mg PO HS [facility] Last Admin: 06/26/17 21:28 Dose: 40 mg Donepezil HCl (Aricept) 5 mg PO HS [facility] Last Admin: 06/26/17 21:28 Dose: 5 mg Heparin Sodium (Porcine) (Heparin) 5,000 units SC Q12 [facility] PRN Reason: Protocol Last Admin: 06/27/17 09:32 Dose: 5,000 units Ceftriaxone Sodium (Rocephin 1 Gram Ivpb) 1 gm in 100 mls @ 100 mls/hr IVPB DAILY [facility] PRN Reason: Protocol Last Admin: 06/27/17 09:32 Dose: 100 mls/hr Valproate Sodium 500 mg/ (Sodium Chloride) 105 mls @ 100 mls/hr IVPB Q12 [facility] Last Admin: 06/27/17 11:35 Dose: 100 mls/hr Lorazepam (Ativan) 1 mg IVP Q2H PRN; Protocol PRN Reason: seizures Ondansetron HCl (Zofran Inj) 4 mg IVP Q4H PRN PRN Reason: Nausea/Vomiting Pantoprazole Sodium (Protonix Inj) 40 mg IVP DAILY [facility] Last Admin: 06/27/17 09:32 Dose: 40 mg Risperidone (Risperdal Tab) 2 mg PO DAILY [facility] PRN Reason: Protocol Last Admin: 06/27/17 09:32 Dose: 2 mg Risperidone (Risperdal Tab) 3 mg PO HS [facility] PRN Reason: Protocol Last Admin: 06/26/17 21:28 Dose: 3 mg - Labs Labs: 06/27/17 06:30 06/27/17 06:30 PT 11.4 Seconds (9.9-11.8) 06/24/17 19:50 INR 1.06 (0.93-1.08) 06/24/17 19:50 APTT 24.1 Seconds (23.7-30.8) 06/24/17 19:50 - Constitutional Appears: No Acute Distress - Head Exam Head Exam: NORMAL INSPECTION, NORMOCEPHALIC - Eye Exam Eye Exam: EOMI, Normal appearance, PERRL - ENT Exam ENT Exam: Mucous Membranes Moist, Normal Exam - Neck Exam Neck Exam: Full ROM, Normal Inspection. absent: Lymphadenopathy - Respiratory Exam Respiratory Exam: Clear to Ausculation Bilateral, NORMAL BREATHING PATTERN. absent: Rales, Rhonchi, Wheezes, Respiratory Distress, Stridor - Cardiovascular Exam Cardiovascular Exam: REGULAR RHYTHM, RRR, +S1, +S2. absent: Tachycardia, Murmur - GI/Abdominal Exam GI & Abdominal Exam: Soft, Normal Bowel Sounds. absent: Distended, Firm, Guarding, Tenderness - Exam Exam: absent: Bladder Distension - Extremities Exam Extremities Exam: Normal Capillary Refill, Normal Inspection. absent: Calf Tenderness, Pedal Edema, Tenderness - Neurological Exam Neurological Exam: Alert, Awake, Oriented x3 Neuro motor strength exam: Left Upper Extremity: 5, Right Upper Extremity: 5, Left Lower Extremity: 5, Right Lower Extremity: 5 - Psychiatric Exam Psychiatric exam: Normal Affect, Normal Mood - Skin Skin Exam: Dry, Intact, Normal Color, Warm Assessment and Plan - Assessment and Plan (Free Text) Assessment: 51 y/o M with PMH of HTN, HLD, anxiety, depression, seizure disorder, schizophrenia, and early onset alzheimer's dementia presents with likely seizure episode in the psychiatry unit. Pt received Head CT which showed mild atrophy and age-indeterminate lacunar infarcts in the basal ganglia with no acute bleed. Brain MRI showed scattered small acute cortical infarcts in both hemispheres involving the right frontal and left temporal, suggesting an embolic source. Plan: 1. Acute CVA -Brain MRI showed scattered small acute cortical infarcts in both hemispheres involving the right frontal and left temporal, suggesting an embolic source -Brain MRA read as unremarkable -ECHO pending -No focal or neurological deficits appreciated on exam -Continue ASA, Lipitor and Depakote 500mg Q12 -Neurology consulted, appreciate all recommendations -Speech and Swallow recommending soft regular diet -Continue PT/OT 2. History of epilepsy -Continue Depakote 500mg Q12H -Ativan 1 mg q2h PRN for seizures -Neurology consulted, appreciate all recommendations -Seizure precautions, aspiration precautions 3. Urinary Tract Infection -Continue Rocephin 1 gm daily (day 3) -Blood culture with no growth x 48 hours 4. Elevated LFTs -AST/ALT: 40/66 -cont to monitor with daily CMP 5. Hyperlipidemia -Continue 40 mg of Atorvastatin 6. Dementia and Schizophrenia -Continue Resperidone 2mg PO daily -Continue Resperidone 3mg PO HS -Continue Aricept -Psychiatry ([facility]) consulted, all recommendations appreciated 7. GI/DVT Prophylaxis -Protonix/Heparin Patient seen and case discussed with attending, Dr. Stallworth. <Federica WRIGHT,[facility] - Last Filed: 06/27/17 17:35> Objective - Vital Signs/Intake and Output Vital Signs (last 24 hours): Temp Pulse Resp BP Pulse Ox 97.3 F L 81 18 141/78 98 06/27/17 12:00 06/27/17 14:00 06/27/17 12:00 06/27/17 12:00 06/27/17 06:00 Intake and Output: 06/27/17 06/27/17 06:59 18:59 Intake Total 1680 Balance 1680 - Medications Medications: Current Medications Acetaminophen (Tylenol 650 Mg Supp) 650 mg RC Q4H PRN PRN Reason: Fever >100.4 F Last Admin: 06/25/17 06:29 Dose: 650 mg Aspirin (Aspirin Chewable) 81 mg PO DAILY [facility] Last Admin: 06/27/17 09:33 Dose: 81 mg Atorvastatin Calcium (Lipitor) 40 mg PO HS [facility] Last Admin: 06/26/17 21:28 Dose: 40 mg Donepezil HCl (Aricept) 5 mg PO HS [facility] Last Admin: 06/26/17 21:28 Dose: 5 mg Heparin Sodium (Porcine) (Heparin) 5,000 units SC Q12 [facility] PRN Reason: Protocol Last Admin: 06/27/17 09:32 Dose: 5,000 units Ceftriaxone Sodium (Rocephin 1 Gram Ivpb) 1 gm in 100 mls @ 100 mls/hr IVPB DAILY [facility] PRN Reason: Protocol Last Admin: 06/27/17 09:32 Dose: 100 mls/hr Valproate Sodium 500 mg/ (Sodium Chloride) 105 mls @ 100 mls/hr IVPB Q12 [facility] Last Admin: 06/27/17 11:35 Dose: 100 mls/hr Lorazepam (Ativan) 1 mg IVP Q2H PRN; Protocol PRN Reason: seizures Ondansetron HCl (Zofran Inj) 4 mg IVP Q4H PRN PRN Reason: Nausea/Vomiting Pantoprazole Sodium (Protonix Inj) 40 mg IVP DAILY [facility] Last Admin: 06/27/17 09:32 Dose: 40 mg Risperidone (Risperdal Tab) 2 mg PO DAILY [facility] PRN Reason: Protocol Last Admin: 06/27/17 09:32 Dose: 2 mg Risperidone (Risperdal Tab) 3 mg PO HS [facility] PRN Reason: Protocol Last Admin: 06/26/17 21:28 Dose: 3 mg - Labs Labs: 06/27/17 06:30 06/27/17 06:30 PT 11.4 Seconds (9.9-11.8) 06/24/17 19:50 INR 1.06 (0.93-1.08) 06/24/17 19:50 APTT 24.1 Seconds (23.7-30.8) 06/24/17 19:50 Attending/Attestation - Attestation I have personally seen and examined this patient.: Yes I have fully participated in the care of the patient.: Yes I have reviewed all pertinent clinical information, including history, physical exam and plan: Yes Notes (Text): 06/27/17 17:33 Patient was seen and examined with forensic medical examiner. 51 yrs old male with PMH of HTN, HLD, anxiety, depression, seizure disorder, schizophrenia, and early onset Alzheimer's dementia presents with likely seizure episode in the psychiatry unit. Head CT showed mild atrophy and age- indeterminate lacunar infarcts in the basal ganglia with no acute bleed..MRI brain showed small cortical infarct in right frontal and temporal lobe.Telemetry is unremarkable for any arrhythmia. We will follow up Echo.We will also follow up PT evaluation. Patient did not has any further seizure. Patient is on Depakote.His mental staus has improved
--- NOTE | 2017-06-27 20:17 | CARD ---
APPROVED REPORT EXAM: Two-dimensional and M-mode echocardiogram with Doppler and color Doppler. INDICATION CVA/TIA 2D DIMENSIONS Left Atrium (2D)3.9 (1.6-4.0cm)IVSd1.4 (0.7-1.1cm) LVDd4.7 (3.9-5.9cm)PWd1.2 (0.7-1.1cm) LVDs3.7 (2.5-4.0cm)FS (%) 22.7 % LVEF (%)45.3 (>50%) M-Mode DIMENSIONS Aortic Root3.00 (2.2-3.7cm)Aortic Cusp Exc.1.70 (1.5-2.0cm) Aortic Valve AoV Peak Nhwzbjul342.0cm/Baylee Peak GR.6mmHg Mitral Valve MV E Sxifjyee67.2cm/sMV A Phmiswqa09.8cm/sE/A ratio1.1 TDI E/Lateral E'0.0E/Medial E'0.0 Tricuspid Valve TR Peak [id number]/sRAP [id number] Peak Gr.29mmHg [id number] LEFT VENTRICLE The left ventricle is normal size. There is normal left ventricular wall thickness. The systolic function is mildly impaired.EF-45-50% There is mild hypokinesis in the apical anterior wall. The left ventricular diastolic function is normal. No left ventricle thrombus noted on this study. There is no ventricular septal defect visualized. There is no left ventricular aneurysm. There is no mass noted in the left ventricle. RIGHT VENTRICLE The right ventricle is normal size. There is normal right ventricular wall thickness. The right ventricular systolic function is normal. ATRIA The left atrium size is normal. The right atrium size is normal. The interatrial septum is intact with no evidence for an atrial septal defect. AORTIC VALVE The aortic valve is thickened but opens well. No aortic regurgitation is present. There is no aortic valvular stenosis. There is no aortic valvular vegetation. MITRAL VALVE The mitral valve is thickened but opens well. Mitral regurgitation is trace. There is no mitral valve stenosis. There is no evidence of mitral valve prolapse. TRICUSPID VALVE The tricuspid valve leaflets are thickened , but open well. There is mild tricuspid regurgitation.RVSP-39 mmof Hg. There is no tricuspid valve stenosis. PULMONIC VALVE The pulmonary valve is normal in structure. There is no pulmonic valvular regurgitation. There is no pulmonic valvular stenosis. GREAT VESSELS The aortic root is normal in size. The ascending aorta is normal in size. The pulmonary artery is normal. The IVC is normal in size and collapses >50% with inspiration. PERICARDIAL EFFUSION There is no pleural effusion. There is no pericardial effusion. <Conclusion> The left ventricle is normal size. There is normal left ventricular wall thickness. The systolic function is mildly impaired.EF-45-50% Mitral regurgitation is trace. There is mild tricuspid regurgitation.RVSP-39 mmof Hg. The IVC is normal in size and collapses >50% with inspiration. There is no pericardial effusion.
[2017-06-28 07:00] VITALS: O2SAT 95
[2017-06-28 08:30] LABS: ALB/GLOB RATIO 1.3 (1.1-1.8); ALBUMIN 4.4 g/dL (3.0-4.8); ALT/SGPT 86 U/L (7-56); AST/SGOT 56 U/L (15-59); BLOOD UREA NITROGEN 15 mg/dL (7-21); GFR AFRICAN-AMERICAN > 60; GFR NON-AFRICAN AMERICAN > 60
[2017-06-28 08:32] LABS: BASO # 0.01 K/mm3 (0.0-2.0); BASO % 0.1 % (0.0-3.0); EOS # 0.2 (0.0-0.7); EOS % 2.8 % (1.5-5.0); GRAN # 3.94 (1.4-6.5); GRAN % 59.2 % (50.0-68.0); HEMOGLOBIN 14.2 g/dL (14.0-18.0); LYMPH % 29.2 % (22.0-35.0); MEAN CELL VOLUME 85.5 fl (80.0-105.0); MEAN CORPUSCULAR HEMOGLOBIN 29.9 pg (25.0-35.0); MEAN PLATELET VOLUME 8.9 fl (7.0-11.0); MONO # 0.6 (0.1-0.6); MONO % 8.7 % (1.0-6.0); PLATELET COUNT 210 10^3/uL (120.0-450.0); RBC 4.75 10^6/uL (3.5-6.1); RED CELL DISTRIBUTION WIDTH 12.9 % (11.5-14.5); WHITE BLOOD COUNT 6.7 10^3/ul (4.5-11.0)
[2017-06-28] MEDS: cefTRIAXone 1 gm 1 GM/100 ML BAG IVPB SCH (10:04)
[2017-06-28] MEDS: Valproate 500 MG in Sodium Chloride 0.9% 100 ML IVPB SCH ×2 (10:17→22:55)
--- NOTE | 2017-06-28 18:55 | CP.PCM.PN ---
<FANY VALLE - Last Filed: 06/28/17 18:44> Subjective - Date & Time of Evaluation Date of Evaluation: 06/28/17 Time of Evaluation: 07:30 - Subjective Subjective: MEDICINE PROGRESS NOTE: Pt seen and assessed at bedside. Pt has no new complaints at this time. Pt denies any headache, dizziness, fever, chills, shortness of breath, chest pain, palpitations, abdominal pain, N/V, or diarrhea. Objective - Vital Signs/Intake and Output Vital Signs (last 24 hours): Temp Pulse Resp BP Pulse Ox 99.2 F 74 19 134/104 H 95 06/28/17 18:00 06/28/17 18:00 06/28/17 18:00 06/28/17 18:00 06/28/17 06:00 Intake and Output: 06/28/17 06/28/17 06:59 18:59 Intake Total 0 Output Total 0 Balance 0 - Medications Medications: Current Medications Acetaminophen (Tylenol 650 Mg Supp) 650 mg RC Q4H PRN PRN Reason: Fever >100.4 F Last Admin: 06/25/17 06:29 Dose: 650 mg Aspirin (Aspirin Chewable) 81 mg PO DAILY [facility] Last Admin: 06/28/17 10:01 Dose: 81 mg Atorvastatin Calcium (Lipitor) 40 mg PO HS [facility] Last Admin: 06/27/17 22:21 Dose: 40 mg Donepezil HCl (Aricept) 5 mg PO HS [facility] Last Admin: 06/27/17 22:21 Dose: 5 mg Heparin Sodium (Porcine) (Heparin) 5,000 units SC Q12 [facility] PRN Reason: Protocol Last Admin: 06/28/17 10:03 Dose: 5,000 units Ceftriaxone Sodium (Rocephin 1 Gram Ivpb) 1 gm in 100 mls @ 100 mls/hr IVPB DAILY [facility] PRN Reason: Protocol Last Admin: 06/28/17 10:04 Dose: 100 mls/hr Valproate Sodium 500 mg/ (Sodium Chloride) 105 mls @ 100 mls/hr IVPB Q12 [facility] Last Admin: 06/28/17 10:17 Dose: 100 mls/hr Lorazepam (Ativan) 1 mg IVP Q2H PRN; Protocol PRN Reason: seizures Ondansetron HCl (Zofran Inj) 4 mg IVP Q4H PRN PRN Reason: Nausea/Vomiting Pantoprazole Sodium (Protonix Inj) 40 mg IVP DAILY [facility] Last Admin: 06/28/17 10:03 Dose: 40 mg Risperidone (Risperdal Tab) 2 mg PO DAILY [facility] PRN Reason: Protocol Last Admin: 06/28/17 10:03 Dose: 2 mg Risperidone (Risperdal Tab) 3 mg PO HS [facility] PRN Reason: Protocol Last Admin: 06/27/17 22:21 Dose: 3 mg - Labs Labs: 06/28/17 08:00 06/28/17 08:00 PT 11.4 Seconds (9.9-11.8) 06/24/17 19:50 INR 1.06 (0.93-1.08) 06/24/17 19:50 APTT 24.1 Seconds (23.7-30.8) 06/24/17 19:50 - Constitutional Appears: Non-toxic, No Acute Distress - Head Exam Head Exam: ATRAUMATIC, NORMOCEPHALIC - Eye Exam Eye Exam: EOMI, Normal appearance - ENT Exam ENT Exam: Mucous Membranes Moist, Normal Exam - Neck Exam Neck Exam: Full ROM. absent: Lymphadenopathy - Respiratory Exam Respiratory Exam: Clear to Ausculation Bilateral, NORMAL BREATHING PATTERN. absent: Rales, Rhonchi, Wheezes, Respiratory Distress - Cardiovascular Exam Cardiovascular Exam: REGULAR RHYTHM, RRR, +S1, +S2 - GI/Abdominal Exam GI & Abdominal Exam: Soft, Normal Bowel Sounds. absent: Distended, Firm, Guarding, Tenderness - Exam Exam: absent: Bladder Distension - Extremities Exam Extremities Exam: Normal Capillary Refill. absent: Calf Tenderness, Pedal Edema - Neurological Exam Neurological Exam: Alert, Awake, Oriented x3 Neuro motor strength exam: Left Upper Extremity: 5, Right Upper Extremity: 5, Left Lower Extremity: 5, Right Lower Extremity: 5 - Psychiatric Exam Psychiatric exam: Normal Affect, Normal Mood - Skin Skin Exam: Dry, Intact, Normal Color, Warm Assessment and Plan - Assessment and Plan (Free Text) Assessment: 51 y/o M with PMH of HTN, HLD, anxiety, depression, seizure disorder, schizophrenia, and early onset alzheimer's dementia presents with likely seizure episode in the psychiatry unit. Pt received Head CT which showed mild atrophy and age-indeterminate lacunar infarcts in the basal ganglia with no acute bleed. Brain MRI showed scattered small acute cortical infarcts in both hemispheres involving the right frontal and left temporal, suggesting an embolic source. Plan: 1. Acute CVA -Brain MRI showed scattered small acute cortical infarcts in both hemispheres involving the right frontal and left temporal, suggesting an embolic source -Brain MRA read as unremarkable -ECHO showing LV and LA size normal, EF of 45-50% and mild pulmonary HTN -Rule out atrial fibrillation or other dysarrhythmia with telemetry and prolonged cardiac monitoring, per neuro -No focal or neurological deficits appreciated on exam -Continue ASA, Lipitor and Depakote 500mg Q12 -Neurology and Cardiology consulted, appreciate all recommendations -Speech and Swallow recommending soft regular diet -Continue PT/OT, who recommend [facility] upon discharge -Plan to discuss [facility] placement with patients family 2. History of epilepsy -No seizures overnight -Continue Depakote 500mg Q12H -Ativan 1 mg q2h PRN for seizures -Neurology consulted, appreciate all recommendations -Seizure precautions, aspiration precautions 3. Urinary Tract Infection -Continue Rocephin 1 gm daily (day 4) -Blood culture with no growth x 72 hours 4. Elevated LFTs -AST/ALT: 56/86 -cont to monitor with daily CMP 5. Hyperlipidemia -Continue lipitor 40mg 6. Dementia and Schizophrenia -Continue Resperidone 2mg PO daily, Resperidone 3mg PO HS, and Aricept -Psychiatry ([facility]) consulted, all recommendations appreciated 7. Urinary/Fecal Incontinence -patient noted to be both incontinent with urine and stool since his admission -patient reports that he wears diapers at home and that this is an ongoing chronic condition -will continue to monitor 8. GI/DVT Prophylaxis -Protonix/Heparin Patient seen and case discussed with attending, Dr. Antoni Mullins. <Antoni Mullins - Last Filed: 06/30/17 16:47> Objective - Vital Signs/Intake and Output Vital Signs (last 24 hours): Temp Pulse Resp BP Pulse Ox 97.6 F 75 22 137/75 95 06/29/17 12:00 06/29/17 14:00 06/29/17 12:00 06/29/17 12:00 06/28/17 06:00 - Labs Labs: 06/29/17 07:30 06/29/17 07:30 PT 11.4 Seconds (9.9-11.8) 06/24/17 19:50 INR 1.06 (0.93-1.08) 06/24/17 19:50 APTT 24.1 Seconds (23.7-30.8) 06/24/17 19:50 Attending/Attestation - Attestation I have personally seen and examined this patient.: Yes I have fully participated in the care of the patient.: Yes I have reviewed all pertinent clinical information, including history, physical exam and plan: Yes Notes (Text): I have seen and examined the patient at bedside. Agree with the above note with the following additions/ exceptions: Briefly this is 51 year old male with history of HTN, dyslipidemia, anxiety, depression, seizure disorder, schizophrenia, early onset alzheimer's dementia who presented with episode of seizure and found to have age-indeterminate lacunar infarcts in the basal ganglia on CT scan. Brain MRI showed scattered small acute cortical infarcts in both hemispheres most likely due to embolic stroke. Echo is negative. Tele strips did not reveal any arrythmia. Cardio consult is pending, Discussed with neurologist. Upon discharge patient will follow up with Dr Agusto Mai. Dr Antoni Mullins
--- NOTE | 2017-06-28 18:56 | CP.PCM.CON ---
<EvangelistmerrittSaroj - Last Filed: 06/28/17 18:52> History of Present Illness - History of Present Illness History of Present Illness: Psychiatry Consult Note 51 y/o M with PMH of HTN, HLD, anxiety, depression, seizure disorder, schizophrenia, and previous psych admissions and early onset alzheimer's dementia who originally presented on 06/24 with worsening schizophrenia symptoms per . Patient was admitted to medical floor after having CVA post [facility] in psych unit. We were consulted on this patient due to history of depression, shizopherenia and anxiety. Past Psych Hx: multiple psychiatric inpatient admissions. Schizophrenia, anxiety , depression. PMH: HTN, HLD, anxiety, depression, seizure disorder, schizophrenia, and early onset alzheimer's dementia Surgical Hx: Kidney surgery FMH: Noncontributory Social Hx: No tobacco, alcohol, or illicit drug use. Lives at home with . Denies Abusive Hx. Medications: Reviewed, as per chart. Allergies: NKDA MSE Patient was in room wearing hospital gown. Speech was soft, and slightly slurred. Patient had slight thought blocking but was linear. Thought content was normal. Mood was euthymic. Affect was consistent with situation. Denies and suicidal or homicidal ideations. Patient was aa0x3. Denies any auditory or visual hallucinations. Patient has good insight and judgement. Review of Systems - Review of Systems All systems: reviewed and no additional remarkable complaints except Past Patient History - Infectious Disease Hx of Infectious Diseases: None - Tetanus Immunizations Tetanus Immunization: Unknown - Past Medical History & Family History Past Medical History?: Yes - Past Social History Smoking Status: Unknown If Ever Smoked - CARDIAC Hx Hypertension: Yes - PULMONARY Hx Respiratory Disorders: No Hx Tuberculosis: No - NEUROLOGICAL Hx Alzheimer's Disease: Yes Hx Dementia: Yes Hx Seizures: Yes - HEENT Hx HEENT Problems: No - RENAL Hx Chronic Kidney Disease: No - ENDOCRINE/METABOLIC Hx Endocrine Disorders: No - HEMATOLOGICAL/ONCOLOGICAL Hx Blood Disorders: No Hx Cancer: No - INTEGUMENTARY Hx Dermatological Problems: No - MUSCULOSKELETAL/RHEUMATOLOGICAL Hx Falls: No - GASTROINTESTINAL Hx Gastrointestinal Disorders: No - GENITOURINARY/GYNECOLOGICAL Hx Genitourinary Disorders: No Hx Sexually Transmitted Disorders: No - PSYCHIATRIC Hx Anxiety: Yes Hx Bipolar Disorder: Yes Hx Depression: Yes Hx Hallucinations: Yes Hx Schizophrenia: Yes - SURGICAL HISTORY Hx Surgeries: Yes (Kidney surgery) - ANESTHESIA Hx Anesthesia: Yes Hx Anesthesia Reactions: No Hx Malignant Hyperthermia: No Meds Allergies/Adverse Reactions: Allergies Allergy/AdvReac Type Severity Reaction Status Date / Time No Known Allergies Allergy Verified 06/24/17 06:20 - Medications Medications: Current Medications Acetaminophen (Tylenol 650 Mg Supp) 650 mg RC Q4H PRN PRN Reason: Fever >100.4 F Last Admin: 06/25/17 06:29 Dose: 650 mg Aspirin (Aspirin Chewable) 81 mg PO DAILY [facility] Last Admin: 06/28/17 10:01 Dose: 81 mg Atorvastatin Calcium (Lipitor) 40 mg PO HS [facility] Last Admin: 06/27/17 22:21 Dose: 40 mg Donepezil HCl (Aricept) 5 mg PO HS [facility] Last Admin: 06/27/17 22:21 Dose: 5 mg Heparin Sodium (Porcine) (Heparin) 5,000 units SC Q12 [facility] PRN Reason: Protocol Last Admin: 06/28/17 10:03 Dose: 5,000 units Ceftriaxone Sodium (Rocephin 1 Gram Ivpb) 1 gm in 100 mls @ 100 mls/hr IVPB DAILY [facility] PRN Reason: Protocol Last Admin: 06/28/17 10:04 Dose: 100 mls/hr Valproate Sodium 500 mg/ (Sodium Chloride) 105 mls @ 100 mls/hr IVPB Q12 [facility] Last Admin: 06/28/17 10:17 Dose: 100 mls/hr Lorazepam (Ativan) 1 mg IVP Q2H PRN; Protocol PRN Reason: seizures Ondansetron HCl (Zofran Inj) 4 mg IVP Q4H PRN PRN Reason: Nausea/Vomiting Pantoprazole Sodium (Protonix Inj) 40 mg IVP DAILY [facility] Last Admin: 06/28/17 10:03 Dose: 40 mg Risperidone (Risperdal Tab) 2 mg PO DAILY [facility] PRN Reason: Protocol Last Admin: 06/28/17 10:03 Dose: 2 mg Risperidone (Risperdal Tab) 3 mg PO HS [facility] PRN Reason: Protocol Last Admin: 06/27/17 22:21 Dose: 3 mg Physical Exam - Psychiatric Exam Additional comments: MSE Patient was in room wearing hospital gown. Speech was soft, and slightly slurred. Patient had slight thought blocking but was linear. Thought content was normal. Mood was euthymic. Affect was consistent with situation. Denies and suicidal or homicidal ideations. Patient was aa0x3. Denies any auditory or visual hallucinations. Patient has good insight and judgement. - Additional Findings Additional findings: Tardive dyskenesia Results - Vital Signs Recent Vital Signs: Last Vital Signs Temp 99.2 F 06/28/17 18:00 Pulse 74 06/28/17 18:00 Resp 19 06/28/17 18:00 BP 134/104 H 06/28/17 18:00 Pulse Ox 95 06/28/17 06:00 - Labs Result Diagrams: 06/28/17 08:00 06/28/17 08:00 Labs: Laboratory Results - last 24 hr 06/27/17 06/28/17 06/28/17 21:57 07:31 08:00 WBC 6.7 RBC 4.75 Hgb 14.2 Hct 40.6 L MCV 85.5 MCH 29.9 MCHC 35.0 RDW 12.9 Plt Count 210 MPV 8.9 Gran % 59.2 Lymph % (Auto) 29.2 [place] % (Auto) 8.7 H Eos % (Auto) 2.8 Baso % (Auto) 0.1 Gran # 3.94 Lymph # 2.0 [place] # 0.6 Eos # 0.2 Baso # 0.01 Sodium Potassium Chloride Carbon Dioxide Anion Gap BUN Creatinine Est GFR ( Amer) Est GFR (Non-Af Amer) POC Glucose (mg/dL) 91 107 Random Glucose Calcium Total Bilirubin AST ALT Alkaline Phosphatase Total Protein Albumin Globulin Albumin/Globulin Ratio 06/28/17 06/28/17 06/28/17 08:00 12:05 16:12 WBC RBC Hgb Hct MCV MCH MCHC RDW Plt Count MPV Gran % Lymph % (Auto) [place] % (Auto) Eos % (Auto) Baso % (Auto) Gran # Lymph # [place] # Eos # Baso # Sodium 140 Potassium 4.1 Chloride 103 Carbon Dioxide 25 Anion Gap 16 BUN 15 Creatinine 0.8 Est GFR ( Amer) > 60 Est GFR (Non-Af Amer) > 60 POC Glucose (mg/dL) 111 H 112 H Random Glucose 103 Calcium 9.0 Total Bilirubin 1.3 AST 56 ALT 86 H Alkaline Phosphatase 84 Total Protein 7.8 Albumin 4.4 Globulin 3.4 Albumin/Globulin Ratio 1.3 Assessment & Plan - Assessment and Plan (Free Text) Assessment: 51 year old male with Past Psyh hx of Schizophrenia, Depression, Anxiety, and Dementia Plan: - Will Cont. Donepizil, Ativan, and Risperidone. - Will transfer back to Psych unit. Patient Seen, examined, and discussed with attending. - Date & Time Date: 06/28/17 Time: 10:45 <Geovanny Slater - Last Filed: 06/28/17 23:07> History of Present Illness - History of Present Illness History of Present Illness: pt has impaired insight and judgement,is bizarre in interaction JJ Meds - Medications Medications: Current Medications Acetaminophen (Tylenol 650 Mg Supp) 650 mg RC Q4H PRN PRN Reason: Fever >100.4 F Last Admin: 06/25/17 06:29 Dose: 650 mg Aspirin (Aspirin Chewable) 81 mg PO DAILY [facility] Last Admin: 06/28/17 10:01 Dose: 81 mg Atorvastatin Calcium (Lipitor) 40 mg PO HS [facility] Last Admin: 06/27/17 22:21 Dose: 40 mg Donepezil HCl (Aricept) 5 mg PO HS [facility] Last Admin: 06/27/17 22:21 Dose: 5 mg Heparin Sodium (Porcine) (Heparin) 5,000 units SC Q12 [facility] PRN Reason: Protocol Last Admin: 06/28/17 10:03 Dose: 5,000 units Ceftriaxone Sodium (Rocephin 1 Gram Ivpb) 1 gm in 100 mls @ 100 mls/hr IVPB DAILY [facility] PRN Reason: Protocol Last Admin: 06/28/17 10:04 Dose: 100 mls/hr Valproate Sodium 500 mg/ (Sodium Chloride) 105 mls @ 100 mls/hr IVPB Q12 [facility] Last Admin: 06/28/17 10:17 Dose: 100 mls/hr Lorazepam (Ativan) 1 mg IVP Q2H PRN; Protocol PRN Reason: seizures Ondansetron HCl (Zofran Inj) 4 mg IVP Q4H PRN PRN Reason: Nausea/Vomiting Pantoprazole Sodium (Protonix Inj) 40 mg IVP DAILY [facility] Last Admin: 06/28/17 10:03 Dose: 40 mg Risperidone (Risperdal Tab) 2 mg PO DAILY [facility] PRN Reason: Protocol Last Admin: 06/28/17 10:03 Dose: 2 mg Risperidone (Risperdal Tab) 3 mg PO HS [facility] PRN Reason: Protocol Last Admin: 06/27/17 22:21 Dose: 3 mg Results - Vital Signs Recent Vital Signs: Last Vital Signs Temp 99.2 F 06/28/17 18:00 Pulse 75 06/28/17 18:00 Resp 19 06/28/17 18:00 BP 134/104 H 06/28/17 18:00 Pulse Ox 95 06/28/17 06:00 - Labs Result Diagrams: 06/28/17 08:00 06/28/17 08:00 Labs: Laboratory Results - last 24 hr 06/27/17 06/28/17 06/28/17 21:57 07:31 08:00 WBC 6.7 RBC 4.75 Hgb 14.2 Hct 40.6 L MCV 85.5 MCH 29.9 MCHC 35.0 RDW 12.9 Plt Count 210 MPV 8.9 Gran % 59.2 Lymph % (Auto) 29.2 [place] % (Auto) 8.7 H Eos % (Auto) 2.8 Baso % (Auto) 0.1 Gran # 3.94 Lymph # 2.0 [place] # 0.6 Eos # 0.2 Baso # 0.01 Sodium Potassium Chloride Carbon Dioxide Anion Gap BUN Creatinine Est GFR ( Amer) Est GFR (Non-Af Amer) POC Glucose (mg/dL) 91 107 Random Glucose Calcium Total Bilirubin AST ALT Alkaline Phosphatase Total Protein Albumin Globulin Albumin/Globulin Ratio 06/28/17 06/28/17 06/28/17 08:00 12:05 16:12 WBC RBC Hgb Hct MCV MCH MCHC RDW Plt Count MPV Gran % Lymph % (Auto) [place] % (Auto) Eos % (Auto) Baso % (Auto) Gran # Lymph # [place] # Eos # Baso # Sodium 140 Potassium 4.1 Chloride 103 Carbon Dioxide 25 Anion Gap 16 BUN 15 Creatinine 0.8 Est GFR ( Amer) > 60 Est GFR (Non-Af Amer) > 60 POC Glucose (mg/dL) 111 H 112 H Random Glucose 103 Calcium 9.0 Total Bilirubin 1.3 AST 56 ALT 86 H Alkaline Phosphatase 84 Total Protein 7.8 Albumin 4.4 Globulin 3.4 Albumin/Globulin Ratio 1.3 06/28/17 21:15 WBC RBC Hgb Hct MCV MCH MCHC RDW Plt Count MPV Gran % Lymph % (Auto) [place] % (Auto) Eos % (Auto) Baso % (Auto) Gran # Lymph # [place] # Eos # Baso # Sodium Potassium Chloride Carbon Dioxide Anion Gap BUN Creatinine Est GFR ( Amer) Est GFR (Non-Af Amer) POC Glucose (mg/dL) 121 H Random Glucose Calcium Total Bilirubin AST ALT Alkaline Phosphatase Total Protein Albumin Globulin Albumin/Globulin Ratio
--- NOTE | 2017-06-29 06:31 | CP.PCM.PN ---
Objective - Vital Signs/Intake and Output Vital Signs (last 24 hours): Temp Pulse Resp BP Pulse Ox 98 F 73 20 141/72 95 06/29/17 00:01 06/29/17 02:00 06/29/17 00:01 06/29/17 00:01 06/28/17 06:00 - Medications Medications: Current Medications Acetaminophen (Tylenol 650 Mg Supp) 650 mg RC Q4H PRN PRN Reason: Fever >100.4 F Last Admin: 06/25/17 06:29 Dose: 650 mg Aspirin (Aspirin Chewable) 81 mg PO DAILY [facility] Last Admin: 06/28/17 10:01 Dose: 81 mg Atorvastatin Calcium (Lipitor) 40 mg PO HS [facility] Last Admin: 06/28/17 22:57 Dose: 40 mg Donepezil HCl (Aricept) 5 mg PO HS [facility] Last Admin: 06/28/17 23:00 Dose: 5 mg Heparin Sodium (Porcine) (Heparin) 5,000 units SC Q12 [facility] PRN Reason: Protocol Last Admin: 06/28/17 22:55 Dose: 5,000 units Ceftriaxone Sodium (Rocephin 1 Gram Ivpb) 1 gm in 100 mls @ 100 mls/hr IVPB DAILY [facility] PRN Reason: Protocol Last Admin: 06/28/17 10:04 Dose: 100 mls/hr Valproate Sodium 500 mg/ (Sodium Chloride) 105 mls @ 100 mls/hr IVPB Q12 [facility] Last Admin: 06/28/17 22:55 Dose: 100 mls/hr Lorazepam (Ativan) 1 mg IVP Q2H PRN; Protocol PRN Reason: seizures Ondansetron HCl (Zofran Inj) 4 mg IVP Q4H PRN PRN Reason: Nausea/Vomiting Pantoprazole Sodium (Protonix Inj) 40 mg IVP DAILY [facility] Last Admin: 06/28/17 10:03 Dose: 40 mg Risperidone (Risperdal Tab) 2 mg PO DAILY [facility] PRN Reason: Protocol Last Admin: 06/28/17 10:03 Dose: 2 mg Risperidone (Risperdal Tab) 3 mg PO HS [facility] PRN Reason: Protocol Last Admin: 06/28/17 22:59 Dose: 3 mg - Labs Labs: 06/28/17 08:00 06/28/17 08:00 PT 11.4 Seconds (9.9-11.8) 06/24/17 19:50 INR 1.06 (0.93-1.08) 06/24/17 19:50 APTT 24.1 Seconds (23.7-30.8) 06/24/17 19:50 Assessment and Plan - Assessment and Plan (Free Text) Assessment: 51 y/o M with PMH of HTN, HLD, anxiety, depression, seizure disorder, schizophrenia, and early onset alzheimer's dementia presents with likely seizure episode in the psychiatry unit. Pt received Head CT which showed mild atrophy and age-indeterminate lacunar infarcts in the basal ganglia with no acute bleed. Brain MRI showed scattered small acute cortical infarcts in both hemispheres involving the right frontal and left temporal, suggesting an embolic source. Plan: 1. Acute CVA -Brain MRI showed scattered small acute cortical infarcts in both hemispheres involving the right frontal and left temporal, suggesting an embolic source -Brain MRA read as unremarkable -ECHO showing LV and LA size normal, EF of 45-50% and mild pulmonary HTN -Rule out atrial fibrillation or other dysarrhythmia with telemetry and prolonged cardiac monitoring, per neuro -No focal or neurological deficits appreciated on exam -Continue ASA, Lipitor and Depakote 500mg Q12 -Neurology and Cardiology consulted, appreciate all recommendations -Speech and Swallow recommending soft regular diet -Continue PT/OT, who recommend VELASQUEZ upon discharge 2. History of epilepsy -No seizures overnight -Continue Depakote 500mg Q12H -Ativan 1 mg q2h PRN for seizures -Neurology consulted, appreciate all recommendations -Seizure precautions, aspiration precautions 3. Urinary Tract Infection -Continue Rocephin 1 gm daily (day 5) -Blood culture with no growth x 72 hours 4. Elevated LFTs -AST/ALT: -cont to monitor with daily CMP 5. Hyperlipidemia -Continue lipitor 40mg 6. Dementia and Schizophrenia -Continue Resperidone 2mg PO daily, Resperidone 3mg PO HS, and Aricept -Psychiatry ([facility]) consulted, all recommendations appreciated 7. Urinary/Fecal Incontinence -patient noted to be both incontinent with urine and stool since his admission -patient reports that he wears diapers at home and that this is an ongoing chronic condition -will continue to monitor 8. GI/DVT Prophylaxis -Protonix/Heparin Patient seen and case discussed with attending, Dr. Antoni Mullins.
[2017-06-29 08:16] LABS: BASO # 0.02 K/mm3 (0.0-2.0); BASO % 0.3 % (0.0-3.0); EOS # 0.2 (0.0-0.7); EOS % 3.6 % (1.5-5.0); GRAN # 2.99 (1.4-6.5); GRAN % 49.2 % (50.0-68.0); HEMOGLOBIN 14.1 g/dL (14.0-18.0); LYMPH # 2.1 (1.2-3.4); LYMPH % 35.1 % (22.0-35.0); MEAN CELL VOLUME 86.8 fl (80.0-105.0); MEAN CORPUSCULAR HEMOGLOBIN 29.6 pg (25.0-35.0); MEAN CORPUSCULAR HGB CONC 34.1 g/dl (31.0-37.0); MEAN PLATELET VOLUME 9.2 fl (7.0-11.0); MONO # 0.7 (0.1-0.6); MONO % 11.8 % (1.0-6.0); PLATELET COUNT 229 10^3/uL (120.0-450.0); RBC 4.77 10^6/uL (3.5-6.1); RED CELL DISTRIBUTION WIDTH 12.9 % (11.5-14.5); WHITE BLOOD COUNT 6.1 10^3/ul (4.5-11.0)
[2017-06-29 08:28] LABS: ALB/GLOB RATIO 1.3 (1.1-1.8); ALBUMIN 4.3 g/dL (3.0-4.8); ALT/SGPT 122 U/L (7-56); AST/SGOT 102 U/L (15-59); BLOOD UREA NITROGEN 14 mg/dL (7-21); CALCIUM 9.1 mg/dL (8.4-10.5); GFR AFRICAN-AMERICAN > 60; GFR NON-AFRICAN AMERICAN > 60
--- NOTE | 2017-06-29 08:42 | CON ---
DATE: 06/28/2017 LOCATION: The patient in room 267, bed 1. REASON FOR CONSULTATION: CVA, possible embolic stroke, hypertension. HISTORY OF PRESENT ILLNESS: A 51-year-old male who is known to have dementia, schizophrenia, depression, hypertension, seizure disorder, was admitted to the psychiatric floor for treatment where he was found to be unresponsive and brought to the emergency room. There is no history of any witnessed seizure disorder. The patient denies chest pain, shortness of breath or palpitation. PAST MEDICAL HISTORY: Positive for dementia, schizophrenia, hypertension, depression, seizure disorder. PERSONAL HISTORY: No history of smoking or drinking. ALLERGIES: THE PATIENT DENIES ANY ALLERGIES. HOME MEDICATIONS: Included Lipitor 40 mg daily, Risperdal 3 mg p.o. at bedtime, Risperdal 2 mg p.o. daily, amlodipine 5 mg daily, lacosamide 1 tablet p.o. b.i.d., Aricept 5 mg at bedtime. REVIEW OF SYSTEMS: All the systems reviewed, positive mentioned in history, others were negative. FAMILY HISTORY: Not significant. PHYSICAL EXAMINATION: VITAL SIGNS: Blood pressure 134/104, earlier pressure was 110/70, earlier to that was 90/53, respirations 19, pulse 74, temperature 99.2. HEENT: Head is normocephalic. Eyes, pupils normal and conjunctivae normal. Nose and throat normal. NECK: JVP low. Carotids equal. LUNGS: Thorax AP diameter normal. Lungs clear. CARDIOVASCULAR: S1 and S2. ABDOMEN: Soft, no tenderness, no organomegaly. Bowel sounds normal. EXTREMITIES: No clubbing. No cyanosis. NEUROLOGIC: The patient is confused. LABORATORY DATA: WBC 6.7, hemoglobin 14.2, hematocrit 40.6, platelets 210. PT and PTT is normal. Sodium 140, potassium 4.1, BUN 15, creatinine 0.8, random sugar 112. AST 56, ALT 86, total protein and bilirubin normal. EKG showed sinus rhythm, T inversions, the patient has reversed limb leads on the EKG. Chest x-ray, no active disease. Head MRA, not significant. Brain MRI; scattered small acute cortical infarcts are seen in both hemispheres involving the right frontal and left temporal lobes, this is suggestive of embolic source. The patient's transthoracic echocardiogram was done yesterday, which showed normal size LV, LV ejection fraction slightly reduced between 45 to 50, mild tricuspid regurgitation, RSVP 39 mmHg. No thrombus or clot was seen. DIAGNOSES: Cerebrovascular accident, possible embolic phenomena, dementia, schizophrenia, depression, hypertension, seizure disorder. PLAN: The patient is getting aspirin 81 mg daily, heparin 5000 units subcutaneous q. 12 hours, Lipitor 40 mg daily, Protonix 40 mg IV daily, Risperdal 3 mg p.o. at bedtime, Rocephin 1 g IV daily, valproate injection 500 mg IV q. 12 hours. We will continue to monitor the patient closely to see if the patient has any run of atrial fibrillation. So far the patient is in sinus rhythm. The patient already had transthoracic echo. We will repeat echo with bubble study to rule out any evidence of atrial septal defect. We will continue present therapy and we will follow with you. Humphrey Ramires MD
[2017-06-29] MEDS: Valproate 500 MG in Sodium Chloride 0.9% 100 ML IVPB SCH (10:56)
[2017-06-29 12:26] VITALS: BP 137/75; RESP 22; TEMP 97.6
[2017-06-29] MEDS: cefTRIAXone 1 gm 1 GM/100 ML BAG IVPB SCH (12:34)
--- NOTE | 2017-06-29 13:09 | CARD ---
APPROVED REPORT EKG Measurement Heart [id number] CO [id number] <Conclusion> Normal sinus rhythm Prolonged QT
--- NOTE | 2017-06-29 14:58 | PN ---
DATE: 06/29/2017 REASON FOR CONSULTATION: Followup CVA, possible embolic stroke, hypertension, and bubble study. SUBJECTIVE: The patient is lying flat on the bed. Denies any chest pain, shortness of breath, or any palpitations. Started having a breakfast now. OBJECTIVE: GENERAL: Not in apparent distress. VITAL SIGNS: As follows; temperature afebrile, heart rate 72, and blood pressure 141/72. HEENT: PERRLA intact. NECK: Supple. No carotid bruit or thyromegaly. CHEST: Clear to auscultation. HEART: S1 and S2 regular. ABDOMEN: Soft. EXTREMITIES: Clubbing and cyanosis negative. LABORATORY DATA: Blood workup as follows: WBC 6.9, hemoglobin 14.2, hematocrit 41.4, and platelet count 229. Chemistry shows sodium 143, potassium 3.9, chloride 104, carbon dioxide 26, anion gap of 17, BUN 14, and creatinine 0.8. Total protein 7.7, albumin 3.4, and albumin-globulin ration 1.3. Triglycerides 102, cholesterol 245, LDL 187, and HDL 45. The patient had echocardiography done on 06/27/2017 that showed ejection fraction 45% to 50%, trace mitral regurgitation, mild tricuspid regurgitation, RV systolic pressure 39, and mild hypokinesis of the anterior wall noted. IMPRESSION: A 51-year-old male with past medical history of schizophrenia, dementia, depression, hypertension, and seizure disorder, admitted prior to psychiatric floor, found unresponsive, and brought to the emergency room. Neurological workup showed acute cortical infarct in both hemispheres involving right frontal and left temporal lobe. We will transthoracic echo showed normal left ventricular size, ejection fraction slightly reduced, mild tricuspid regurgitation, right ventricular systolic pressure 39, and no thrombus was noted. Cardiology consult was called to rule out patent foramen ovale to assess any embolic event crossing from right to left. RECOMMENDATIONS: Continue aspirin. Continue heparin. DVT prophylaxis. Continue high dose of atorvastatin as tolerated. Continue awake overnight monitor, rule out any arrhythmia. We will get bubble study and echo add on. We will follow with you. We will put atorvastatin to 80 mg because of the very high LDL 187 and history of cerebrovascular event. Also, we will increase to high dose and then continue aspirin. We will get bubble study today. We will monitor LFTs before we put the high doses because the patient has elevated SGPT and so, we will cut down back to 40 mg and monitor LFTs. If the LFTs improved, then we will go back on high dose; otherwise, we will continue 40 mg as body as tolerated. Initially, increased to 80, but the LFTs shows the SGPT and SGOT is elevated, so we will repeat the blood workup tomorrow and leave it on 40 mg. If the SGPT, SGOT, and liver function trends down, we will increase to [address] Vo for providing the opportunity to taking care of the patient, Neptali Chase. Humphrey Randolph MD
[2017-06-29 15:05] VITALS: PULSE 75
--- NOTE | 2017-06-29 17:06 | CARD ---
APPROVED REPORT EXAM: Two-dimensional and M-mode echocardiogram with Doppler and color Doppler. INDICATION R/O PFO <Conclusion> This is a limited study to R/o PFO, initial complete echo was done 2-3 days ago. No Evidence of PFO/ Shunt noted by colr flow and Bubble study. Intact intra atrial septum noted.
== END 2017-06-29 17:38 | DRG 65 ==
LOC: ED 19:55 → ERH 22:25 → 2RNO 23:39
PROVIDERS: ADMIT Hospitalist; ATTEND Hospitalist
DX: I63.10 Cerebral infarction due to embolism of unspecified precerebral artery (principal); N39.0 Urinary tract infection, site not specified; G30.0 Alzheimer's disease with early onset; I07.1 Rheumatic tricuspid insufficiency; F20.9 Schizophrenia, unspecified; R13.12 Dysphagia, oropharyngeal phase; R15.9 Full incontinence of feces; F02.80 Dementia in other diseases classified elsewhere, unspecified severity, without behavioral disturbance, psychotic disturbance, mood disturbance, and anxiety; E78.5 Hyperlipidemia, unspecified; G40.909 Epilepsy, unspecified, not intractable, without status epilepticus; F31.9 Bipolar disorder, unspecified; G47.00 Insomnia, unspecified; I10 Essential (primary) hypertension; Z79.82 Long term (current) use of aspirin; Z79.899 Other long term (current) drug therapy; F41.9 Anxiety disorder, unspecified; F32.89 Other specified depressive episodes; I73.9 Peripheral vascular disease, unspecified; E80.6 Other disorders of bilirubin metabolism; R32 Unspecified urinary incontinence

== ENCOUNTER 2017-06-29 17:30 | Inpatient (IN) | payer MEDICARE, MEDICAID ==
--- NOTE | 2017-06-29 19:13 | PCM.BM ---
<KeraPrasanna - Last Filed: 06/29/17 19:14> Treatment Plan Problems - Problems identified on initial assessmt MENTAL STATUS ALTERATION Date Initiated: 06/29/17 Time Initiated: 19:11 Assessment reference: NA Status: Active SELFCARE DEFICIT Date Initiated: 06/29/17 Time Initiated: 19:11 Assessment reference: NA Status: Active FEELING OF WORTHLESNES Date Initiated: 06/29/17 Time Initiated: 19:12 Assessment reference: NA Status: Active Treatment assets and liabiliti Patient Assests: adapts well, cooperative Patient Liabilities: physical pain, medical problems, imparied memory, other - Milieu Protocol Maintain good personal hygiene: daily Encourage regular showers, daily Remind patient to perform daily oral care, daily Assist patient to perform ADL's Maintain personal safety: daily Educate patient to report safety concerns to staff, daily Monitor environment for contraband/sharps Medication safety: Monitor for expected outcome, potential side effects: daily, Assess barriers to learning: daily, Assess readiness for medication education: daily Discharge/Continuing Care - Education Needs Education Needs: Family Medication, Family Diagnosis/Disease Process, Family Coping Skills, Family Placement options, Family Community resources, Family Activities of Daily Living, Family Aftercare Safety Plan - Discharge Discharge Criteria: Free of agitation, Ability to care for self <Saroj Alegria - Last Filed: 06/30/17 10:59> - Diagnosis (1) Dementia, vascular, mixed Status: Acute Interventions: 06/30/17 11:00 * Assess/adjust medications daily and /or as needed * Discuss risks, benefits, sided effects and alternatives of medications * See patient on an individual basis 7x/week to assess level of agitation/ confusion * 06/30/17 11:01 <Abby Cortez - Last Filed: 07/01/17 08:55> Family Contact Family involvement: Family/SO is involved Family contact: Patient agrees to contact Family contact name: Nina Chase() [phone] Family contacted how many times per week?: 2 <Alyson Villafuerte - Last Filed: 07/01/17 13:50>
[2017-06-29] MEDS: Divalproex 500 mg DR(BID formulation) PO SCH (22:57)
--- NOTE | 2017-06-30 03:10 | PN ---
HISTORY OF PRESENT ILLNESS: The patient is a 51-year-old male, who has been the focus of concern because of his bizarre behavior, both at home and in the hospital. He also has a history of hypertension and HLP. He has shown recent multiple small infarcts on brain imaging. Case discussed with Dr. Shaver. The patient was seen by Dr. Randolph. He noted that a transthoracic echo showed normal left ventricular size, with a slightly reduced ejection fraction and mild tricuspid regurgitation with the right ventricular systolic pressure at 39. No thrombus noted. The patient is superficial with an odd affect but seems to be oriented today. He will be transferred to the Psychiatric unit for further observation and treatment. He is now not agitated nor suicidal or homicidal, but both his cognitive,behavior, and emotional state varies and needs to be stabilized. Geovanny Slater MD/ PhD
[2017-06-30 07:08] VITALS: TEMP 98.2
[2017-06-30 09:03] LABS: GLUCOSE,FASTING 103 mg/dL (65-110); HDL CHOLESTEROL 31 mg/dL (29-60); LDL CHOLESTEROL 128 mg/dL (0-129)
[2017-06-30 09:15] LABS: ALB/GLOB RATIO 1.2 (1.1-1.8); ALBUMIN 4.3 g/dL (3.0-4.8); ALT/SGPT 121 U/L (7-56); AST/SGOT 78 U/L (15-59); BLOOD UREA NITROGEN 16 mg/dL (7-21); CALCIUM 9.3 mg/dL (8.4-10.5); GFR AFRICAN-AMERICAN > 60; GFR NON-AFRICAN AMERICAN > 60
[2017-06-30] MEDS: Pantoprazole 40 mg EC Tab PO SCH (09:21)
[2017-06-30] MEDS: Divalproex 500 mg DR(BID formulation) PO SCH ×2 (09:21→21:44)
[2017-06-30 09:25] LABS: FREE T4 1.52 ng/dL (0.78-2.19)
--- NOTE | 2017-06-30 21:12 | CP.PCM.DIS ---
<FANY VALLE - Last Filed: 06/30/17 21:09> Provider - Provider Date of Admission: 06/29/17 17:30 Attending physician: Geovanny Slater MD Primary care physician: None Consults: Neurology-Dr. Goodwin Cardiology-Dr. Randolph Psychiatry-Dr. Slater Time Spent in preparation of Discharge (in minutes): 47 Hospital Course - Lab Results Lab Results: Most Recent Lab Values Sodium 140 mmol/L (132-148) 06/30/17 08:00 Potassium 4.4 mmol/L (3.6-5.0) 06/30/17 08:00 Chloride 104 mmol/L (95-110) 06/30/17 08:00 Carbon Dioxide 24 mmol/L (21-33) 06/30/17 08:00 Anion Gap 16 (10-20) 06/30/17 08:00 BUN 16 mg/dL (7-21) 06/30/17 08:00 Creatinine 0.8 mg/dL (0.5-1.4) 06/30/17 08:00 Est GFR ( Amer) > 60 06/30/17 08:00 Est GFR (Non-Af Amer) > 60 06/30/17 08:00 Random Glucose 103 mg/dL (70-110) 06/30/17 08:00 Fasting Glucose 103 mg/dL (65-110) 06/30/17 08:00 Calcium 9.3 mg/dL (8.4-10.5) 06/30/17 08:00 Total Bilirubin 1.0 mg/dL (0.2-1.3) 06/30/17 08:00 AST 78 U/L (15-59) H 06/30/17 08:00 ALT 121 U/L (7-56) H 06/30/17 08:00 Alkaline Phosphatase 82 U/L (38-133) 06/30/17 08:00 Total Protein 7.8 g/dL (5.8-8.3) 06/30/17 08:00 Albumin 4.3 g/dL (3.0-4.8) 06/30/17 08:00 Globulin 3.5 gm/dL 06/30/17 08:00 Albumin/Globulin Ratio 1.2 (1.1-1.8) 06/30/17 08:00 Triglycerides 148 mg/dL (35-160) 06/30/17 08:00 Cholesterol 182 mg/dL (130-200) 06/30/17 08:00 LDL Cholesterol Direct 128 mg/dL (0-129) 06/30/17 08:00 HDL Cholesterol 31 mg/dL (29-60) 06/30/17 08:00 Free T4 1.52 ng/dL (0.78-2.19) 06/30/17 08:00 TSH 3rd Generation 0.4 MIU/ml (0.46-4.68) L 06/30/17 08:00 - Hospital Course Hospital Course: 51 y/o M with PMH of HTN, HLD, anxiety, depression, seizure disorder, schizophrenia, and early onset alzheimer's dementia 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 Pt initially presented to the ED due to worsening schizophrenia symptoms and insomnia according to his . Pt did not receive his home medications before coming to the ED. In the psych unit, pt received Risperdal and Cogentin. RAIL MAINTENANCE WORKER was called when patient was found unresponsive, slumped over , and drooling. Pt did not have any bowel/bladder incontinence or evidence of tongue biting. Patient was taken to the ED where a CODE STROKE was called. Pt received a Head CT and blood work. Neurology was consulted and started patient on depakote. They determined that the head CT was concerning for chronic infarcts and ordered a Brain MRI and Head/Neck MRA. The MRA came back negative but the MRI showed multiple infarcts with suspected embolic source. An ECHO was ordered to rule out cardioembolic source and showed LV and LA size normal, EF of 45-50% and mild pulmonary HTN. Cardiology was consulted and monitored for atrial fibrillation. An ECHO with bubble study was ordered to r/o PFO and was negative. Pt was found to have many bacteria and high nitrites in his urine and was started on cetriaxone, which he was kept on for 5 days. Pt was found to have elevated LFT's and a hep panel was ordered and found to be negative. Pt was seen by PT/OT who recommended [facility] upon discharge. Psychiatry saw patient was requested he be transferred back to the psychiatry unit whenever he was medically stable. Pt was discharged to psych on 06/29. - Date & Time of H&P Date of H&P: 06/24/17 Time of H&P: 22:27 Discharge Exam - Head Exam Head Exam: ATRAUMATIC, NORMAL INSPECTION, NORMOCEPHALIC - Eye Exam Eye Exam: EOMI, Normal appearance, PERRL Pupil Exam: NORMAL ACCOMODATION - ENT Exam ENT Exam: Mucous Membranes Moist, Normal Exam - Neck Exam Neck exam: Full Rom - Respiratory Exam Respiratory Exam: Clear to PA & Lateral, NORMAL BREATHING PATTERN, UNREMARKABLE. absent: Rales, Rhonchi, Wheezes, Respiratory Distress - Cardiovascular Exam Cardiovascular Exam: REGULAR RHYTHM, RRR, +S1, +S2 - GI/Abdominal Exam GI & Abdominal Exam: Normal Bowel Sounds, Unremarkable. absent: Diminished Bowel Sounds, Distended, Firm, Tenderness - Extremities Exam Additional comments: No calf tenderness or pedal edema bilaterally - Neurological Exam Neurological exam: Alert, Oriented x3 - Psychiatric Exam Psychiatric exam: Normal Affect, Normal Mood - Skin Skin Exam: Dry, Intact, Normal Color, Warm Discharge Plan - Follow Up Plan Condition: GOOD Disposition: HOME/ ROUTINE Instructions: Depression (DC) Referrals: [facility], [facility] [Other] (Patient to resume services with adult day care upon discharge. ) Geovanny Slater MD [Staff Provider] - (Patient to follow up with psychiatrist, Dr. Geovanny Slater on July 07, 2017 at 4:30pm. ) <Antoni Mullins B - Last Filed: 07/01/17 17:18> Provider - Provider Date of Admission: 06/29/17 17:30 Attending physician: Geovanny Slater MD Hospital Course - Lab Results Lab Results: Most Recent Lab Values Sodium 140 mmol/L (132-148) 06/30/17 08:00 Potassium 4.4 mmol/L (3.6-5.0) 06/30/17 08:00 Chloride 104 mmol/L (95-110) 06/30/17 08:00 Carbon Dioxide 24 mmol/L (21-33) 06/30/17 08:00 Anion Gap 16 (10-20) 06/30/17 08:00 BUN 16 mg/dL (7-21) 06/30/17 08:00 Creatinine 0.8 mg/dL (0.5-1.4) 06/30/17 08:00 Est GFR ( Amer) > 60 06/30/17 08:00 Est GFR (Non-Af Amer) > 60 06/30/17 08:00 Random Glucose 103 mg/dL (70-110) 06/30/17 08:00 Fasting Glucose 103 mg/dL (65-110) 06/30/17 08:00 Calcium 9.3 mg/dL (8.4-10.5) 06/30/17 08:00 Total Bilirubin 1.0 mg/dL (0.2-1.3) 06/30/17 08:00 AST 78 U/L (15-59) H 06/30/17 08:00 ALT 121 U/L (7-56) H 06/30/17 08:00 Alkaline Phosphatase 82 U/L (38-133) 06/30/17 08:00 Total Protein 7.8 g/dL (5.8-8.3) 06/30/17 08:00 Albumin 4.3 g/dL (3.0-4.8) 06/30/17 08:00 Globulin 3.5 gm/dL 06/30/17 08:00 Albumin/Globulin Ratio 1.2 (1.1-1.8) 06/30/17 08:00 Triglycerides 148 mg/dL (35-160) 06/30/17 08:00 Cholesterol 182 mg/dL (130-200) 06/30/17 08:00 LDL Cholesterol Direct 128 mg/dL (0-129) 06/30/17 08:00 HDL Cholesterol 31 mg/dL (29-60) 06/30/17 08:00 Free T4 1.52 ng/dL (0.78-2.19) 06/30/17 08:00 TSH 3rd Generation 0.4 MIU/ml (0.46-4.68) L 06/30/17 08:00 Attending/Attestation - Attestation I have personally seen and examined this patient.: Yes I have fully participated in the care of the patient.: Yes I have reviewed all pertinent clinical information, including history, physical exam and plan: Yes Notes (Text): I have seen and examined the patient at bedside. Agree with the above note with the following additions/ exceptions: Briefly this is 51 year old male with history of HTN, dyslipidemia, anxiety, depression, seizure disorder, schizophrenia, early onset Alzheimer's dementia, some mental delay who presented with episode of seizure and found to have age-indeterminate lacunar infarcts in the basal ganglia on CT scan. Brain MRI showed scattered small acute cortical infarcts in both hemispheres most likely due to embolic stroke. Echo is negative. Tele strips did not reveal any arrythmia. Cardio consult appreciated. Echo with bubble study is negative. Discussed with neurologist. PT recommended [facility] however discussed in detail with patients who is not agreeable to send him to [facility]/ TCU. Patient will be transferred to psych floor. Upon discharge patient will follow up with Dr Agusto Mai. Dr Antoni Mullins
--- NOTE | 2017-06-30 21:33 | CP.PCM.CON ---
<FANY VALLE - Last Filed: 06/30/17 21:26> History of Present Illness - History of Present Illness History of Present Illness: CC: Recent History of CVA HPI: Mr. Chase is a 51 y/o M with PMH of HTN, HLD, anxiety, depression, seizure disorder, schizophrenia, and early onset alzheimer's dementia who presents to the medicine service after being recently diagnosed with a CVA and being discharged from the medicine service. Pt initially presented to the medicine team after an CABLE LAYER was called on patient in the psych unit. Patient was taken to the ED where a CODE STROKE was called. Pt received a multiple imaging studies of the brain, including a brain MRI which showed multiple infarcts likely from an embolic source. An ECHO and an ECHO with bubble study showed normal structure and function of patients heart deeming it an unlikely embolic source. Neurology and Cardiology were both consulted and followed patient. Currently, patient is asymptomatic with no motorsensory deficits appreciated. Pt denies headache, fever, changes in vision, dysphagia, chest pain, SOB, cough , abdominal pain, N/V, or diarrhea. PMH: HTN, HLD, anxiety, depression, seizure disorder, schizophrenia, and early onset alzheimer's dementia Surgical Hx: Kidney surgery FMH: Noncontributory Social Hx: No tobacco, alcohol, or illicit drug use. Lives at home with . Allergies: NKDA Medications: Reviewed, as per chart. Review of Systems - Review of Systems Review of Systems: Please refer to HPI Past Patient History - Infectious Disease Hx of Infectious Diseases: None - Tetanus Immunizations Tetanus Immunization: Unknown - Past Medical History & Family History Past Medical History?: Yes - Past Social History Smoking Status: Unknown If Ever Smoked - CARDIAC Hx Hypertension: Yes - PULMONARY Hx Respiratory Disorders: No Hx Tuberculosis: No - NEUROLOGICAL Hx Alzheimer's Disease: Yes HX Cerebrovascular Accident: Yes Hx Dementia: Yes Hx Seizures: Yes - HEENT Hx HEENT Problems: No - RENAL Hx Chronic Kidney Disease: No - ENDOCRINE/METABOLIC Hx Endocrine Disorders: No - HEMATOLOGICAL/ONCOLOGICAL Hx Blood Disorders: No Hx Cancer: No - INTEGUMENTARY Hx Dermatological Problems: No - MUSCULOSKELETAL/RHEUMATOLOGICAL Hx Falls: No - GASTROINTESTINAL Hx Gastrointestinal Disorders: No - GENITOURINARY/GYNECOLOGICAL Hx Genitourinary Disorders: No Hx Sexually Transmitted Disorders: No - PSYCHIATRIC Hx Anxiety: Yes Hx Depression: Yes Hx Substance Use: No - SURGICAL HISTORY Hx Surgeries: Yes (Kidney surgery) - ANESTHESIA Hx Anesthesia: Yes Hx Anesthesia Reactions: No Hx Malignant Hyperthermia: No Meds Home Medications: Home Medication List Medication Instructions Recorded Confirmed Type Aspirin [Aspirin Chewable] 81 mg PO DAILY 07/01/17 Rx Atorvastatin [Lipitor] 40 mg PO HS tab 07/01/17 Rx Divalproex [Depakote DR(*BID*)] 500 mg PO [facility] tcp 07/01/17 Rx Donepezil [Aricept] 5 mg PO HS tab 07/01/17 Rx LORazepam [Ativan] 0.5 mg PO BID tab 07/01/17 Rx risperiDONE [RisperDAL Tab] 2 mg PO [facility] tab 07/01/17 Rx Allergies/Adverse Reactions: Allergies Allergy/AdvReac Type Severity Reaction Status Date / Time No Known Allergies Allergy Verified 06/29/17 19:06 - Medications Medications: Current Medications Acetaminophen (Tylenol 325mg Tab) 650 mg PO Q6H PRN PRN Reason: Pain, Mild (1-3) Aspirin (Aspirin Chewable) 81 mg PO DAILY [facility] Last Admin: 06/30/17 09:21 Dose: 81 mg Atorvastatin Calcium (Lipitor) 40 mg PO HS [facility] Last Admin: 06/29/17 22:57 Dose: 40 mg Divalproex Sodium (Depakote Dr(*Bid*)) 500 mg PO AMHS [facility] Last Admin: 06/30/17 09:21 Dose: 500 mg Donepezil HCl (Aricept) 5 mg PO HS [facility] Last Admin: 06/29/17 22:58 Dose: 5 mg Heparin Sodium (Porcine) (Heparin) 5,000 units SC Q12 [facility] PRN Reason: Protocol Last Admin: 06/30/17 17:22 Dose: 5,000 units Lorazepam (Ativan) 0.5 mg PO BID [facility] PRN Reason: Protocol Last Admin: 06/30/17 16:26 Dose: 0.5 mg Pantoprazole Sodium (Protonix Ec Tab) 40 mg PO 0600 [facility] Last Admin: 06/30/17 09:21 Dose: 40 mg Risperidone (Risperdal Tab) 2 mg PO AMHS [facility] PRN Reason: Protocol Last Admin: 06/30/17 09:21 Dose: 2 mg Physical Exam - Constitutional Appears: Well, No Acute Distress - Head Exam Head Exam: ATRAUMATIC, NORMOCEPHALIC - Eye Exam Eye Exam: EOMI, Normal appearance, PERRL Pupil Exam: NORMAL ACCOMODATION - ENT Exam ENT Exam: Mucous Membranes Moist, Normal Exam - Neck Exam Neck exam: Positive for: Normal Inspection - Respiratory Exam Respiratory Exam: Clear to Auscultation Bilateral, NORMAL BREATHING PATTERN. absent: Rales, Rhonchi, Wheezes - Cardiovascular Exam Cardiovascular Exam: REGULAR RHYTHM, RRR, +S1, +S2 - GI/Abdominal Exam GI & Abdominal Exam: Normal Bowel Sounds, Soft. absent: Diminished Bowel Sounds , Distended, Firm, Tenderness - Exam Exam: absent: Bladder Distension - Extremities Exam Extremities exam: Positive for: normal capillary refill, normal inspection, pedal pulses present. Negative for: calf tenderness, pedal edema - Back Exam Back exam: absent: CVA tenderness (L), CVA tenderness (R) - Neurological Exam Neurological exam: Alert, Oriented x3 - Psychiatric Exam Psychiatric exam: Normal Affect, Normal Mood - Skin Skin Exam: Dry, Intact, Normal Color, Warm Results - Vital Signs Recent Vital Signs: Last Vital Signs Temp 98.2 F 06/30/17 07:08 Pulse 86 06/30/17 16:04 Resp 17 06/30/17 07:08 BP 124/92 H 06/30/17 16:04 Pulse Ox - Labs Result Diagrams: 06/30/17 08:00 Labs: Laboratory Results - last 24 hr 06/30/17 06/30/17 06/30/17 08:00 08:00 08:00 Sodium 140 Potassium 4.4 Chloride 104 Carbon Dioxide 24 Anion Gap 16 BUN 16 Creatinine 0.8 Est GFR ( Amer) > 60 Est GFR (Non-Af Amer) > 60 Random Glucose 103 Fasting Glucose 103 Calcium 9.3 Total Bilirubin 1.0 AST 78 H ALT 121 H Alkaline Phosphatase 82 Total Protein 7.8 Albumin 4.3 Globulin 3.5 Albumin/Globulin Ratio 1.2 Triglycerides 148 Cholesterol 182 LDL Cholesterol Direct 128 HDL Cholesterol 31 Free T4 1.52 TSH 3rd Generation 0.4 L Assessment & Plan - Assessment and Plan (Free Text) Assessment: 51 y/o M with PMH of HTN, HLD, anxiety, depression, seizure disorder, schizophrenia, and early onset alzheimer's dementia who presents to the medicine service after being recently diagnosed with a CVA and being discharged from the medicine service Plan: 1. History of recent CVA -no focal neurologic defecits appreciated on physical exam -continue ASA and Lipitor -recommend patient follow up with both neurology and cardiology as an outpatient -PT/OT at prior visit recommends [facility] upon discharge 2. History of Seizure Disorder -Continue Depakote 500mg Q12H 3. UTI -discontinue ceftriaxone -start bactrim PO DS tab BID for two days to complete antibiotic course 4. Elevated LFT's -AST/ALT were 78/121 today -downtrending 5. History of HLD -cont lipitor 6. GI/DVT Propylaxis -Heparin/scd's Patient seen and case discussed with attending, Dr. Antoni Mullins. - Date & Time Date: 06/30/17 Time: 21:35 <Antoni Mullins B - Last Filed: 07/01/17 17:22> Meds - Medications Medications: Current Medications Acetaminophen (Tylenol 325mg Tab) 650 mg PO Q6H PRN PRN Reason: Pain, Mild (1-3) Aspirin (Aspirin Chewable) 81 mg PO DAILY [facility] Last Admin: 07/01/17 09:35 Dose: 81 mg Atorvastatin Calcium (Lipitor) 40 mg PO HS [facility] Last Admin: 06/30/17 21:45 Dose: 40 mg Divalproex Sodium (Depakote Dr(*Bid*)) 500 mg PO AMHS [facility] Last Admin: 07/01/17 09:35 Dose: 500 mg Donepezil HCl (Aricept) 5 mg PO HS [facility] Last Admin: 06/30/17 21:44 Dose: 5 mg Heparin Sodium (Porcine) (Heparin) 5,000 units SC Q12 [facility] PRN Reason: Protocol Last Admin: 07/01/17 07:07 Dose: 5,000 units Lorazepam (Ativan) 0.5 mg PO BID [facility] PRN Reason: Protocol Last Admin: 07/01/17 09:35 Dose: 0.5 mg Pantoprazole Sodium (Protonix Ec Tab) 40 mg PO 0600 [facility] Last Admin: 07/01/17 07:17 Dose: 40 mg Risperidone (Risperdal Tab) 2 mg PO AMHS [facility] PRN Reason: Protocol Last Admin: 07/01/17 09:35 Dose: 2 mg Trimethoprim/Sulfamethoxazole (Bactrim Ds Tab) 1 tab PO BID [facility] PRN Reason: Protocol Last Admin: 07/01/17 09:35 Dose: 1 tab Results - Vital Signs Recent Vital Signs: Last Vital Signs Temp 98.2 F 07/01/17 07:38 Pulse 61 07/01/17 07:38 Resp 18 07/01/17 07:38 BP 129/90 07/01/17 07:38 Pulse Ox - Labs Result Diagrams: 06/30/17 08:00 Attending/Attestation - Attestation I have personally seen and examined this patient.: Yes I have fully participated in the care of the patient.: Yes I have reviewed all pertinent clinical information: Yes Notes (Text): I have seen and examined the patient at bedside. Agree with the above note with the following additions/ exceptions: Briefly this is 51 year old male with history of HTN, dyslipidemia, anxiety, depression, seizure disorder, schizophrenia, early onset Alzheimer's dementia, some mental delay who got transferred to psych floor for management of depression. Patient denies any complaints. Manage as per psychiatrist. Upon discharge patient will follow up with Dr Agusto Mai. Dr Antoni Mullins
--- NOTE | 2017-06-30 21:43 | PN ---
The patient is a 51-year-old male who has engaged in intermittent agitated behavior and confusion. His chart was reviewed and the patient was interviewed with the treatment team where he appeared to be confused with significant short and detention memory deficits and periods of silence. I have conveyed to his our thoughts that the patient is suffering primarily from a dementoform disorder. She is not prepared to send him to a detention, but would welcome home services. Biochemical profile today shows elevated AST of 78, ALT 121. TSH low at 0.4 The patient is on Aricept 5 mg at bedtime, Ativan 0.5 mg b.i.d., Depakote 500 mg in the morning and at bedtime, Risperdal 2 mg in the morning and at bedtime. The patient may have had an preexistent dementoform disorder prior to his recent multilacunar infarct. Geovanny Slater MD/ PhD
[2017-07-01] MEDS: Pantoprazole 40 mg EC Tab PO SCH (07:17)
[2017-07-01 07:39] VITALS: BP 129/90; PULSE 61; RESP 18
[2017-07-01] MEDS ORDERED: Tmp-Smz 800 mg-160 mg DS Tab PO SCH (08:00)
[2017-07-01] MEDS: Divalproex 500 mg DR(BID formulation) PO SCH (09:35)
--- NOTE | 2017-07-01 23:53 | PN ---
DATE: 07/01/2017 SUBJECTIVE: The patient is a 51-year-old, apparently demented (probably vascular, but possibly mixed type). He shows fluctuating mental status with fluctuating mood, fluctuating behavior, fluctuating orientation. There is growing realization that is involved in caring his as she may be in denial or not fully appreciating the extent of the patient's infirmity. He does not appear to be involved with internal stimuli at the moment, but does appear to be disheveled and disorganized. His is asking for him to leave, which may be a possibility. PHYSICAL EXAMINATION: VITAL SIGNS: Blood pressure 120/96, pulse 59, temperature 98.2, respiratory rate 17. MEDICATIONS: The patient is presently psychotropically on Aricept 5 mg at nighttime and Risperdal 2 mg in the morning and at nighttime. Geovanny Slater MD/ PhD
== END 2017-07-01 19:38 | disposition home or self-care (01) | DRG 56 ==
LOC: PSYC 17:30
PROVIDERS: ADMIT Psychiatry & Neurology Addiction Medicine; ATTEND Psychiatry & Neurology Addiction Medicine
DX: G30.0 Alzheimer's disease with early onset (principal); I63.40 Cerebral infarction due to embolism of unspecified cerebral artery; N39.0 Urinary tract infection, site not specified; F01.50 Vascular dementia, unspecified severity, without behavioral disturbance, psychotic disturbance, mood disturbance, and anxiety; F02.80 Dementia in other diseases classified elsewhere, unspecified severity, without behavioral disturbance, psychotic disturbance, mood disturbance, and anxiety; F20.9 Schizophrenia, unspecified; G40.909 Epilepsy, unspecified, not intractable, without status epilepticus; E78.5 Hyperlipidemia, unspecified; I07.1 Rheumatic tricuspid insufficiency; I10 Essential (primary) hypertension; G47.00 Insomnia, unspecified; Z86.73 Personal history of transient ischemic attack (TIA), and cerebral infarction without residual deficits; Z79.899 Other long term (current) drug therapy; I27.2 Other secondary pulmonary hypertension; F41.9 Anxiety disorder, unspecified; F32.89 Other specified depressive episodes

== ENCOUNTER 2017-10-25 10:08 | Inpatient (IN) | payer MEDICARE, MEDICAID ==
[2017-10-25 10:09] VITALS: BMI 33.7
--- NOTE | 2017-10-25 10:40 | ED PDOC ---
Arrival/HPI - General Chief Complaint: Psychiatric Evaluation Time Seen by Provider: 10/25/17 10:28 Historian: Patient, Spouse - History of Present Illness Narrative History of Present Illness (Text): 10/25/17 10:25 A 52 year old male, whose past medical history includes, schizophrenia, seizure disorder, bipolar disorder, hypertension, and GERD, presents to the emergency department via who brought in the patient because she states he has been paranoid thinking that someone is trying to kill him. This morning the patient " escaped front he house" this morning and the patient's had to bring the patient back in. The patient is asymptomatic and denies any other complaints at this time. PMD: Dr. Slater Time/Duration: Prior to Arrival Symptom Onset: Sudden Symptom Course: Unchanged Activities at Onset: Light Context: Home Past Medical History - Provider Review Nursing Documentation Reviewed: Yes - Infectious Disease Hx of Infectious Diseases: None - Tetanus Immunization Tetanus Immunization: Unknown - Cardiac Hx Cardiac Disorders: Yes Hx Hypertension: Yes - Pulmonary Hx Respiratory Disorders: No Hx Tuberculosis: No - Neurological HX Cerebrovascular Accident: No - HEENT Hx HEENT Disorder: No - Renal Hx Renal Disorder: No - Endocrine/Metabolic Hx Endocrine Disorders: No - Hematological/Oncological Hx Blood Disorders: No Hx Cancer: No - Integumentary Hx Dermatological Disorder: No - Musculoskeletal/Rheumatological Hx Musculoskeletal Disorders: No Hx Falls: No - Gastrointestinal Hx Gastrointestinal Disorders: No - Genitourinary/Gynecological Hx Genitourinary Disorders: No Hx Sexually Transmitted Diseases: No - Psychiatric Hx Psychophysiologic Disorder: Yes Hx Depression: Yes Hx Schizophrenia: Yes Hx Substance Use: No Other/Comment: dementia - Surgical History Other/Comment: Hx of kidney sx - Anesthesia Hx Anesthesia: Yes Hx Anesthesia Reactions: No Hx Malignant Hyperthermia: No - Suicidal Assessment Feels Threatened In Home Enviroment: No Family/Social History - Physician Review Nursing Documentation Reviewed: Yes Family/Social History: No Known Family HX Smoking Status: Never Smoked Hx Alcohol Use: No Hx Substance Use: No Allergies/Home Meds Allergies/Adverse Reactions: Allergies No Known Allergies Allergy (Verified 10/25/17 10:21) Home Medications: Home Meds Medication Instructions Recorded Confirmed Lacosamide [Vimpat] 1 tab PO BID 05/16/17 06/29/17 Atorvastatin [Lipitor] 40 mg PO HS 06/24/17 06/29/17 amLODIPine [Norvasc] 5 mg PO DAILY 06/24/17 06/29/17 Review of Systems - Physician Review All systems were reviewed & negative as marked: Yes - Review of Systems Constitutional: absent: Fevers Cardiovascular: absent: Chest Pain Gastrointestinal: absent: Abdominal Pain Neurological: Other ("paranoid") Physical Exam Vital Signs Reviewed: Yes Vital Signs Temp Pulse Resp BP Pulse Ox 10/25/17 13:50 69 18 144/97 H 98 10/25/17 10:09 98.1 F 71 18 161/118 H 100 Temperature: Afebrile Blood Pressure: Hypertensive Pulse: Regular Respiratory Rate: Normal Appearance: Positive for: Non-Toxic, Comfortable, Other (paranoid) Pain Distress: None Mental Status: Positive for: Alert and Oriented X 3, Agitated - Systems Exam Head: Present: Atraumatic, Normocephalic Pupils: Present: PERRL Extroacular Muscles: Present: EOMI Conjunctiva: Present: Normal Mouth: Present: Moist Mucous Membranes Neck: Present: Normal Range of Motion Respiratory/Chest: Present: Clear to Auscultation, Good Air Exchange. No: Respiratory Distress, Accessory Muscle Use Cardiovascular: Present: Regular Rate and Rhythm, Normal S1, S2. No: Murmurs Abdomen: Present: Normal Bowel Sounds. No: Tenderness, Distention, Peritoneal Signs Back: Present: Normal Inspection Upper Extremity: Present: Normal Inspection. No: Cyanosis, Edema Lower Extremity: Present: Normal Inspection. No: Edema Neurological: Present: GCS=15, CN II-XII Intact, Speech Normal Skin: Present: Warm, Dry, Normal Color. No: Rashes Psychiatric: Present: Alert, Oriented x 3, Normal Concentration, Anxious, Other (Patient appears to be responding to internal stimuli) Medical Decision Making ED Course and Treatment: 10/25/17 10:35 Impression: A 52 year old male who is paranoid. Differential Diagnosis included but are not limited to: Plan: -- EKG -- Chest X-ray -- Ativan -- Labs -- Urinalysis -- Reassess and disposition Progress Notes: 10/25/17 12:34 reports that the patient has been taking his medication. He is extremely paranoid and believes that someone is trying to kill him. He"escaped" from home this morning trying to get away from those who were trying to kill him. Crisis has been called. 12/12/17 12:35 EKG shows normal sinus rhythm rate approximately [address] or T-wave changes - Lab Interpretations Lab Results: 10/25/17 11:35 10/25/17 11:35 Lab Results 10/25/17 11:53: Urine Opiates Screen Negative, Urine Methadone Screen Negative, Ur Barbiturates Screen Negative, Ur Phencyclidine Scrn Negative, Ur Amphetamines Screen Negative, U Benzodiazepines Scrn Negative, U Oth Cocaine Metabols Negative, U Cannabinoids Screen Negative 10/25/17 11:53: Urine Color Yellow, Urine Appearance Clear, Urine pH 6.0, Ur Specific [place] 1.010, Urine Protein 30 H, Urine Glucose (UA) Negative, Urine Ketones Negative, Urine Blood Trace-intact H, Urine Nitrate Negative, Urine Bilirubin Negative, Urine Urobilinogen 0.2, Ur Leukocyte Esterase Negative, Urine RBC 2 - 5, Urine WBC 0 - 2, Ur Epithelial Cells None, Amorphous Sediment Small, Urine Bacteria Mod 10/25/17 11:35: Valproic Acid < 10 L 10/25/17 11:35: Alcohol, Quantitative < 10 10/25/17 11:35: Salicylates < 1 L, Acetaminophen < 10.0 L 10/25/17 11:35: Sodium 143, Potassium 3.2 L, Chloride 105, Carbon Dioxide 17 L, Anion Gap 24 H, BUN 11, Creatinine 0.8, Est GFR ( Amer) > 60, Est GFR ( Non-Af Amer) > 60, Random Glucose 130 H, Calcium 10.2, Total Bilirubin 1.8 H, AST 47, ALT 74 H, Alkaline Phosphatase 98, Total Creatine Kinase 83, Total Protein 9.0 H, Albumin 5.1 H, Globulin 3.9, Albumin/Globulin Ratio 1.3 10/25/17 11:35: WBC 10.7 D, RBC 5.23, Hgb 16.2 D, Hct 45.1, MCV 86.2, MCH 31.0 , MCHC 35.9, RDW 12.9, Plt Count 239, MPV 9.9, Gran % 64.2, Lymph % (Auto) 28.1 , [place] % (Auto) 6.8 H, Eos % (Auto) 0.7 L, Baso % (Auto) 0.2, Gran # 6.86 H, Lymph # 3.0, [place] # 0.7 H, Eos # 0.1, Baso # 0.02 - RAD Interpretation Radiology Orders: 10/25/17 10:35 CHEST PORTABLE [RAD] Stat - Medication Orders Current Medication Orders: Discontinued Medications Lorazepam (Ativan) 2 mg IM STAT STA Stop: 10/25/17 10:35 Last Admin: 10/25/17 11:20 Dose: 2 mg IM Administration Charges Document 10/25/17 11:20 RG (Rec: 10/25/17 11:40 RG [facility] [id number]) Injection Site MAR Injection Site Left Deltoid Charges for Administration # of IM Administrations 1 - Scribe Statement The provider has reviewed the documentation as recorded by the Scribe Maria Fernanda Horn Provider Scribe Attestation: All medical record entries made by the Scribe were at my direction and personally dictated by me. I have reviewed the chart and agree that the record accurately reflects my personal performance of the history, physical exam, medical decision making, and the department course for this patient. I have also personally directed, reviewed, and agree with the discharge instructions and disposition. Disposition/Present on Arrival - Present on Arrival Any Indicators Present on Arrival: No History of DVT/PE: No History of Uncontrolled Diabetes: No Urinary Catheter: No History of Decub. Ulcer: No History Surgical Site Infection Following: None - Disposition Have Diagnosis and Disposition been Completed?: Yes Diagnosis: Schizophrenia, Bipolar disorder, Dementia, HTN (hypertension) Disposition: HOSPITALIZED Disposition Time: 13:51 Patient Plan: Admission Condition: FAIR Referrals: Agusto Mai MD [Primary Care Provider] - Follow up with primary Forms: [employer] ([place])
--- NOTE | 2017-10-25 11:23 | RAD ---
HISTORY: PES COMPARISON: 06/24/2017 FINDINGS: LUNGS: No active pulmonary disease. PLEURA: No significant pleural effusion identified, no pneumothorax apparent. CARDIOVASCULAR: Normal. OSSEOUS STRUCTURES: No significant abnormalities. VISUALIZED UPPER ABDOMEN: Normal. OTHER FINDINGS: None. IMPRESSION: No active disease.
[2017-10-25 11:52] LABS: BASO # 0.02 K/mm3 (0.0-2.0); BASO % 0.2 % (0.0-3.0); EOS # 0.1 (0.0-0.7); EOS % 0.7 % (1.5-5.0); GRAN # 6.86 (1.4-6.5); GRAN % 64.2 % (50.0-68.0); HEMATOCRIT 45.1 % (42.0-52.0); LYMPH % 28.1 % (22.0-35.0); MEAN CELL VOLUME 86.2 fl (80.0-105.0); MEAN CORPUSCULAR HGB CONC 35.9 g/dl (31.0-37.0); MEAN PLATELET VOLUME 9.9 fl (7.0-11.0); MONO # 0.7 (0.1-0.6); MONO % 6.8 % (1.0-6.0); RED CELL DISTRIBUTION WIDTH 12.9 % (11.5-14.5); WHITE BLOOD COUNT 10.7 10^3/ul (4.5-11.0)
[2017-10-25 12:00] LABS: ALB/GLOB RATIO 1.3 (1.1-1.8); ALKALINE PHOSPHATASE 98 U/L (38-126); ALT/SGPT 74 U/L (7-56); AST/SGOT 47 U/L (17-59); BILIRUBIN,TOTAL 1.8 mg/dL (0.2-1.3); BLOOD UREA NITROGEN 11 mg/dL (7-21); CALCIUM 10.2 mg/dL (8.4-10.5); CARBON DIOXIDE 17 mmol/L (21-33); CHLORIDE 105 mmol/L (98-107); GFR AFRICAN-AMERICAN > 60; GLUCOSE,RANDOM 130 mg/dL (70-110); POTASSIUM 3.2 mmol/L (3.6-5.0); SODIUM 143 mmol/L (132-148)
[2017-10-25 12:07] LABS: URINE BILIRUBIN NEGATIVE (NEGATIVE); URINE BLOOD TRACE-INTACT (NEGATIVE); URINE GLUCOSE (UA) NEGATIVE (NEGATIVE); URINE KETONE NEGATIVE (NEGATIVE); URINE LEUKOCYTE ESTERASE NEGATIVE Leu/uL (NEGATIVE); URINE PROTEIN 30 mg/dL (<30 mg/dL); URINE UROBILINOGEN 0.2 E.U./dL (<1 E.U./dL)
[2017-10-25 12:12] LABS: URINE APPEARANCE CLEAR (CLEAR); URINE COLOR YELLOW (YELLOW)
[2017-10-25 12:32] LABS: URINE AMORPHOUS SEDIMENT SMALL; URINE BACTERIA MOD (NEG); URINE WBC 0 - 2 /hpf (0-6)
[2017-10-25 13:51] VITALS: O2SAT 98
--- NOTE | 2017-10-25 15:53 | PCM.BM ---
<Radha Mayfield - Last Filed: 10/25/17 15:50> Treatment Plan Problems - Problems identified on initial assessmt agitated behavior Date Initiated: 10/25/17 Time Initiated: 16:00 Assessment reference: NA Status: Active Priority: 1 hopeless/worthless Date Initiated: 10/25/17 Time Initiated: 16:00 Assessment reference: NA Status: Active Priority: 2 self care deficit Date Initiated: 10/25/17 Time Initiated: 16:00 Assessment reference: NA Status: Active Priority: 3 Treatment assets and liabiliti Patient Assests: adapts well, cooperative Patient Liabilities: imparied memory, visual impairment - Milieu Protocol Maintain good personal hygiene: daily Encourage regular showers, daily Remind patient to perform daily oral care, daily Assist patient to perform ADL's Maintain personal safety: every shift Educate patient to report safety concerns to staff, every shift Monitor environment for contraband/sharps Medication safety: Monitor for expected outcome, potential side effects: every shift, Assess barriers to learning: every shift, Assess readiness for medication education: every shift Discharge/Continuing Care - Education Needs Education Needs: Patient Medication, Patient Diagnosis/Disease Process, Patient Coping Skills, Patient Anger Management skills, Patient Community resources, Patient Activities of Daily Living, Patient Pain, Patient Nutrition, Patient Uses of Medical Equipment, Patient Health Practices/Safety, Patient Personal Hygiene/Grooming, Patient Aftercare Safety Plan - Discharge Discharge Criteria: Free of Suicidal thoughts, Free of Homicidal thoughts, Free of paranoid thoughts, Free of agitation, Normal sleep pattern, Ability to care for self, Reduction of target symptoms Discharge to:: Home <Abby Cortez - Last Filed: 10/26/17 15:57> Family Contact Family involvement: Family/SO is involved Family contact: Patient agrees to contact <Suzi Aleman - Last Filed: 10/31/17 13:22> - Diagnosis (1) Dementia Status: Chronic Interventions: 10/31/17 13:18 Observe closely and provide safety Psychopharmacology/adjustment of medications as needed/ monitoring possible side effectsEvaluate pt on daily basis Compliance with medications and follow up appointments Suicide and homicide risk assessment and prevention, coping strategies, safety plan Improve functional status Family involvement Appropriate social work assistant
[2017-10-25] MEDS ORDERED: Magnesium Hydroxide Susp 30 ml UD PO PRN (20:29)
[2017-10-25] MEDS ORDERED: Alum-Mag Hydrox-Simethicone Susp (30 mL) PO PRN (20:29)
--- NOTE | 2017-10-26 00:54 | CARD ---
APPROVED REPORT EKG Measurement Heart [id number] <Conclusion> Normal sinus rhythm Moderate voltage criteria for LVH, may be normal variant Borderline ECG
[2017-10-26 08:26] LABS: CHOLESTEROL 213 mg/dL (130-200)
[2017-10-26 08:42] LABS: FREE T4 1.37 ng/dL (0.78-2.19)
[2017-10-26 08:56] LABS: THYROID STIMULATING HORMONE 0.68 mIU/mL (0.46-4.68)
--- NOTE | 2017-10-26 20:59 | PCM.PSYCH ---
Initial Psychiatric Evaluation - Initial Psychiatric Evaluation Chief Complaint (in patient's own words): "My says I have problems" Patient's Reaction to Hospitalization: Patient was seen today in treatment team, he has been here before and is known to the staff. Patient is a 52 year old male with a previous diagnosis of Dementia. His brought him to the emergency room today because patient left the house, thinking that someone was trying to kill him. He is unable to recall these events at this time. He has poor eye contact, sits sideways in his chair facing away from the group and almost continually licking his lips. He repeats the phrase "my thinks some thing is wrong with me" over and over. He is able to remember his address, his 's name and former occupation. He is not able to answer specifically the questions for the mental status exam other than knowing the year. He is cooperative and directable. Diagnostic Impression: Dementia Unspecified with behavioral changes Current Medications: Active Medications Generic Name Dose Route Start Last Admin Trade Name Freq PRN Reason Stop Dose Admin Acetaminophen 650 mg 10/25/17 20:29 Tylenol 325mg Tab PO Q4H PRN Pain, Mild (1-3) Al Hydrox/Mg Hydrox/Simethicone 30 ml 10/25/17 20:29 Maalox Plus 30 Ml PO DAILY PRN Upset Stomach Amlodipine Besylate 5 mg 10/26/17 14:30 10/26/17 16:03 Norvasc PO 5 mg DAILY MAURI Administration Donepezil HCl 5 mg 10/25/17 22:00 10/25/17 21:27 Aricept PO 5 mg HS MAURI Administration Hydralazine HCl 10 mg 10/26/17 16:17 Apresoline PO Q4 PRN Systolic Blood Pressure Magnesium Hydroxide 30 ml 10/25/17 20:29 Milk Of Magnesia PO DAILY PRN Constipation Risperidone 2 mg 10/25/17 22:00 10/25/17 21:27 Risperdal Tab PO 2 mg HS MAURI Administration Protocol Risperidone 0.5 mg 10/26/17 14:30 10/26/17 14:58 Risperdal Tab PO 0.5 mg DAILY MAURI Administration Protocol Past Psychiatric History - Past Psychiatric History Pertinent Medical Hx (Current Medical&Sleep Prob, Allergies): Allergies Allergy/AdvReac Type Severity Reaction Status Date / Time No Known Allergies Allergy Verified 10/25/17 20:01 amLODIPine [Norvasc] 5 mg PO DAILY 06/24/17 Divalproex [Brian WILLAMS(*BID*)] 500 mg PO AMHS tcp 07/01/17 LORazepam [Ativan] 0.5 mg PO BID tab 07/01/17
--- NOTE | 2017-10-27 09:33 | PN ---
DATE: SUBJECTIVE: The patient is in Behavioral Care Unit, [facility] in [place]. He is in room 518, bed 1. The patient was admitted with history of being paranoid. According to the , the patient complained that somebody is trying to kill him, and the patient has past history of bipolar disorder and schizophrenia. The patient has been treated in the past also for dementia. The patient has been placed on Aricept. The patient was on Risperdal, and the patient also taking treatment for hypertension with amlodipine 5 mg daily. The patient has a history of abdominal surgery at the median incision in the abdomen, extensive incision consistent with possible perforation of abdominal peritonitis. HE HAD NO ALLERGIES. He had no certification for DNR. The patient is confused, cannot answer questions properly, but he says something is wrong, somebody trying to do some harm to him. The patient also had been treated with Depakote in the past. PHYSICAL EXAMINATION: GENERAL: The patient is lying in bed, seems to be half asleep. VITAL SIGNS: Pulse is 97, blood pressure 92/57. The patient's temperature is 100.4, we will have to repeat the temperature. HEENT: The patient's head is normocephalic. NECK: Thyroid is not enlarged. JVP is flat. LUNGS: Trachea is central. Breath sounds are vesicular. No adventitious sounds. HEART: Normal sinus rhythm. S1 and S2 present. No murmurs. ABDOMEN: Soft. There is evidence of a midline incision, healed scar of the abdomen from epigastric area to almost the suprapubic area. [employer]: No focal neurological deficits noted. The patient has evidence of dementia associated with mental illness. LABORATORY DATA: His blood workup; the hemoglobin is 16.2. His chemistry; the potassium is 3.2. The patient has lipid profile with cholesterol of 213. His thyroid function studies are within normal limits. His bilirubin is 1.8. His AST is 47, ALT is 74. His random sugar is 130. The patient has liver dysfunction with hypobilirubinemia. The patient has hypoglycemia and the patient had hypokalemia. His renal function are within normal limits. The patient's temperature has to be monitored and do a urine test. Urine culture, his white cell count in the urine is within normal limits, rbc is 2-5. We will follow up with the chemistry examination and monitor his temperature. MEDICATIONS: Consists of hydralazine p.r.n. for elevated blood pressure. He is on Aricept 5 mg daily. The patient is on amlodipine 5 mg daily, Risperdal 2 mg at bedtime and 0.5 mg p.o. daily. 2 g sodium, heart-healthy diet. Zainab Costello MD
--- NOTE | 2017-10-27 17:59 | PCM.PYCHPN ---
Psychiatric Progress Note - Psychiatric Progress Note Patient Chief Complaint: "My says I have problems" Problems Identified/Issues Discussed: Patient isolates in room, does not socialize. He requires reminding for eating and ADLs. He is directable and childlike. When he comments he repeats the same few words over and over. He has not been agitated on the unit. Mental Status Examination - Cognitive Function Orientation: Person Memory: Impaired Attention: Poor Concentration: Poor Association: Loose Fund of Knowledge: Poor Decription of patient's judgement and insights: Patient is limited in his ability to communicate and process. He is easily directed. - Mood Mood: Neutral - Affect Affect: Flat - Speech Speech: Stammering - Formal Thought Process Formal Thought Process: Other Psychotic Thoughts and Behaviors: Patient has difficulty processing, does not appear to be responding to internal stimuli. - Suicidal Ideation Suicidal Ideation: No - Homicidal Ideation Homicidal Ideation: No
--- NOTE | 2017-10-28 09:56 | PN ---
DATE: SUBJECTIVE: The patient is in Behavioral Care Unit. The patient was admitted with altered mental state, hallucination, and delusion. The patient has history of schizophrenia and bipolar disorder. The patient also has a history of hypertension. PHYSICAL EXAMINATION: VITAL SIGNS: This morning, the patient's pulse is 81, blood pressure is 114/70, respirations are 20, O2 sat is 98% on room air, and the patient's temperature is 97.9. HEENT: The patient's head is normocephalic. LUNGS: Clear. HEART: Normal sinus rhythm. ABDOMEN: Soft. Liver and spleen not palpable. CENTRAL NERVOUS SYSTEM: No neurological deficits are noted. PLAN: The patient is being treated with medications. The patient is on hydralazine 10 mg q.4 hours p.r.n. for elevated blood pressure. He is on Aricept 5 mg daily. The patient is on amlodipine 5 mg daily. The patient is on Risperdal 0.5 mg daily, 2 mg p.o. at bedtime for agitation, p.r.n. Tylenol for pain. The patient's diet is heart-healthy diet. His critical condition is stably, but the patient is controlled. We will continue current management. We will follow up. Zainab Costello MD
--- NOTE | 2017-10-28 21:44 | PCM.PYCHPN ---
Psychiatric Progress Note - Psychiatric Progress Note Patient seen today, length of contact: 20 Patient Chief Complaint: "My brought me here" Problems Identified/Issues Discussed: Patient is out of room pacing aimlessly today, he does not socialize. He requires reminding for eating and ADLs. He is easily directed and childlike. When he comments he repeats the same few words over and over. Last night he was up and wandering in other patient's rooms, confused. Staff was able to calm him so he was able to return to sleep. Medical Problems: Hypertension Medication Change: No Medical Record Reviewed: Yes Consults ordered or reviewed: Hospitalist saw 10/25/2017 for management of HTN Mental Status Examination - Cognitive Function Orientation: Person Memory: Impaired Attention: Poor Concentration: Poor Association: Loose Fund of Knowledge: Poor Decription of patient's judgement and insights: Patient is limited in his ability to communicate and process. He is easily directed. - Mood Mood: Neutral - Affect Affect: Flat - Speech Speech: Stammering - Formal Thought Process Formal Thought Process: Other Psychotic Thoughts and Behaviors: Patient has difficulty processing, does not appear to be responding to internal stimuli. - Suicidal Ideation Suicidal Ideation: No - Homicidal Ideation Homicidal Ideation: No
--- NOTE | 2017-10-29 08:59 | PCM.PYCHPN ---
Psychiatric Progress Note - Psychiatric Progress Note Patient seen today, length of contact: 25 MIN Problems Identified/Issues Discussed: I reviewed assessment and recent notes. Patient has periods of confusion, disorientation and wandering on the unit. Can be repetitive and patient requires redirection. I met with patient at bedside on two occasions this morning and he will not cooperate in an interview with me. Though patient is awake, he does not respond. He is only able to answer "no" when I ask him if he is in any pain or discomfort. He does not appear to be in any distress. Staff notes indicate that patient fell asleep late 2 nights ago but was able to sleep last night. Insight, judgment and impulse control remain poor. Diagnostic Results: Dementia Unspecified with behavioral changes Medication Change: No Medical Record Reviewed: Yes Mental Status Examination - Cognitive Function Orientation: Person Memory: Impaired Attention: Poor Concentration: Poor Association: Loose Fund of Knowledge: Poor - Mood Mood: Neutral - Affect Affect: Flat - Speech Speech: Stammering - Formal Thought Process Formal Thought Process: Other (disoriented, wandering, confused at times) - Suicidal Ideation Suicidal Ideation: No - Homicidal Ideation Homicidal Ideation: No Goal/Treatment Plan - Goal/Treatment Plan Progress Toward Problem(s) and Goals/Treatment Plan: * c/w current tx and plan * No new weekend labs thus far * Vitals reviewed and noted below: Selected Entries 10/28/17 10/28/17 10/28/17 07:25 08:28 15:00 Temperature 97.9 F Pulse Rate 81 81 87 Respiratory 20 Rate Blood Pressure 114/70 114/70 110/63
--- NOTE | 2017-10-29 12:37 | PN ---
DATE: SUBJECTIVE: The patient is in Behavioral Care Unit, [facility] in [place], room 518, bed 1. The patient was seen this morning. His communication , but the patient seemed to be comfortable resting in his bed. PHYSICAL EXAMINATION: VITAL SIGNS: Pulse is 73, blood pressure is 133/85, respirations 18, O2 sat is 100% on room air, and temperature is 98.3. HEENT: The patient's head is normocephalic. LUNGS: Trachea is central. Breath sounds are vesicular. No adventitious sounds. HEART: Normal sinus rhythm. S1 and S2 present. ABDOMEN: Soft. Liver and spleen not palpable. No tenderness. CENTRAL NERVOUS SYSTEM: No focal deficits. The patient has history of abdominal surgery. The patient has history of hypertension. MEDICATIONS: His medications consists of hydralazine p.r.n. 10 mg q.4 hours for systolic elevation of blood pressure. The patient is on Aricept 5 mg daily. The patient is on amlodipine 5 mg daily and Risperdal 0.5 mg daily and 2 mg p.r.n. for agitation. The patient also has in addition to bipolar disorder, depression, altered mental status, and mild dementia. His overall prognosis is guarded. Condition is stable. Clinically, the patient is taking more [facility] management treatment by Dr. Slater. We will continue current management and followup. Zainab Costello MD
--- NOTE | 2017-10-30 08:40 | PCM.PYCHPN ---
Psychiatric Progress Note - Psychiatric Progress Note Patient seen today, length of contact: 25 MIN Patient Chief Complaint: "fine" Problems Identified/Issues Discussed: I reviewed recent notes. Patient still has periods of confusion, disorientation and wandering on the unit. Can be repetitive and patient requires redirection. I met with patient at bedside at he is a little more responsive. He tells me that he feels "fine" and denies any pain. He using oriented to month or year but aware he is in a hospital. Speech is soft and responses are very brief and delayed. Affect remains flat, preoccupied and a little vacant. He does not appear to be in any distress. Staff notes indicate that patient slept last night. Insight and judgment are poor. Diagnostic Results: Dementia Unspecified with behavioral changes Medication Change: No Medical Record Reviewed: Yes Mental Status Examination - Cognitive Function Orientation: Person Memory: Impaired Attention: Poor Concentration: Poor Association: Loose Fund of Knowledge: Poor - Mood Mood: Neutral ("fine") - Affect Affect: Flat - Speech Speech: Soft, Stammering - Formal Thought Process Formal Thought Process: Other (disoriented, wandering, confused at times) - Suicidal Ideation Suicidal Ideation: No - Homicidal Ideation Homicidal Ideation: No Goal/Treatment Plan - Goal/Treatment Plan Progress Toward Problem(s) and Goals/Treatment Plan: * c/w current tx and plan * Appreciate f/u by Dr. Costello on 10/29/17~no new recommendations * No new weekend labs thus far * Vitals reviewed and noted below: Selected Entries 10/29/17 10/29/17 10/29/17 06:50 08:50 16:42 Temperature 98.3 F Pulse Rate 73 73 60 Respiratory 18 Rate Blood Pressure 133/85 133/85 137/113 H
[2017-10-31 07:55] LABS: ALB/GLOB RATIO 1.2 (1.1-1.8); ALKALINE PHOSPHATASE 78 U/L (38-126); ALT/SGPT 71 U/L (7-56); AST/SGOT 35 U/L (17-59); BILIRUBIN,TOTAL 1.1 mg/dL (0.2-1.3); BLOOD UREA NITROGEN 16 mg/dL (7-21); CALCIUM 9.5 mg/dL (8.4-10.5); CARBON DIOXIDE 26 mmol/L (21-33); CHLORIDE 104 mmol/L (98-107); GFR AFRICAN-AMERICAN > 60; GLUCOSE,RANDOM 118 mg/dL (70-110); POTASSIUM 4.4 mmol/L (3.6-5.0); SODIUM 141 mmol/L (132-148); TOTAL PROTEIN 7.9 g/dL (5.8-8.3)
--- NOTE | 2017-10-31 13:00 | PN ---
DATE: 10/31/2017 SUBJECTIVE: The patient is seen this morning, sitting in his , seems to be agitated about something that he is not clear. He is confused. PHYSICAL EXAMINATION: VITAL SIGNS: Pulse is 80, blood pressure is 106/75, respirations are 17, O2 sat is 98% on room air. LUNGS: Clear. HEART: Normal sinus rhythm. ABDOMEN: Soft. Liver and spleen not palpable. CENTRAL NERVOUS SYSTEM: No focal deficits. Apparently, the patient has a history of dementia, seizure disorder. There is a medication that he was taking at home, which was not disturbed. Dr. Slater will evaluate the medications and consider re-introducing it into his care. His medications consist of Apresoline for blood pressure control. The patient is on Aricept 5 mg daily. The patient is on amlodipine 5 mg daily for blood pressure control. The patient is also on risperidone at this time. His condition is clinically stable right now. His blood pressure is under control. Continue current regimen. Zainab Costello MD
[2017-10-31] MEDS ORDERED: VIMPAT 100 MG PO SCH (16:00)
[2017-10-31] MEDS: VIMPAT 100 MG PO SCH ×2 (17:33)
[2017-11-01 07:08] VITALS: RESP 20
[2017-11-01] MEDS: VIMPAT 100 MG PO SCH ×2 (09:33→16:11)
--- NOTE | 2017-11-01 10:54 | PN ---
DATE: 10/31/2017 SUBJECTIVE: The patient is a 52-year-old male who appears to have a dementiform disorder with behavioral changes. This is ongoing for several years that led to several hospitalizations. His has been in denial about the extent of his illness and its causes, but seems now overwhelmed and unable to care for him at home and thus is asking for a alf placement. As part of his behavioral complex, he has wandered outside of his home on multiple occasions and his is no longer able to manage him. His stay here is noted for his periods of confusion and forgetfulness such that he needs frequent redirection. He has poor insight. His appetite is considered to be in good. The patient's laboratory values are reviewed with today's chemistry showing a slightly elevated fasting blood glucose of 118 and ALT of 71. His cholesterol on 10/26 was elevated at 213 and LDH cholesterol direct elevated at 161. He is being maintained psychotropically on Aricept 5 mg at bedtime, Risperdal 2 mg at bedtime, and 0.5 mg daily. He is also on Norvasc 5 mg, Vimpat, and Apresoline p.r.n. PHYSICAL EXAMINATION: Vital Signs: Blood pressure 106/75, pulse 80, temperature 97.3, respiratory rate 17. Geovanny Slater MD/ PhD cc:
--- NOTE | 2017-11-02 04:07 | PN ---
DATE: 11/01/2017 SUBJECTIVE: The patient is a 52-year-old male with what appears to be a progressive dementiform disorder with behavioral features. It is now reached a state of proportionality that his who has been in denial inability to care for him, and is in need for a more structured supervised living. The patient is intermittently agitated, he is confused, he appears unruly at times. The patient's affect is generally blunted and flat with soft and underproductive speech. He does not appear to be responding to internal stimuli. The patient was to have an EEG today. The patient's is busy looking for potential half-way placement facilities. Blood pressure 129/88, pulse 66, temperature 97.3, respiratory rate 20. The patient remains psychotropically on Aricept 5 mg, Risperdal 2 mg at bedtime and 0.5 mg a.m. Geovanny Slater MD/ PhD
[2017-11-02 07:31] VITALS: TEMP 97.6
--- NOTE | 2017-11-02 08:06 | EEG ---
ELECTROENCEPHALOGRAM REPORT DATE: 11/01/2017 CONDITION OF THE RECORDING: Drowsy. DIAGNOSIS: Evaluate for seizure. MEDICATIONS: Reviewed by nurse's reconciliation sheet. INTERPRETATION: This is a 16-channel [employer] recording. The background activity recorded was 8 cycles per second. There was a small amount of beta activity of 16-20 cycles per second seen in this tracing. There was a small amount of theta activity of 5 to 7 cycles per seconds seen in this tracing. Drowsiness was characterized by mixed beta and theta activities. Sleep was characterized by vertex transient waves, sleep spindles, and bilateral slowing. Photic stimulation showed no change in the tracing. No paroxysmal activity is noted in this recording. CONCLUSION: This is a normal drowsy EEG. No evidence of any epileptiform activity. Please clinically correlate. Hiram Echeverria MD
[2017-11-02] MEDS: VIMPAT 100 MG PO SCH ×2 (09:23→17:06)
--- NOTE | 2017-11-02 10:23 | PN ---
DATE: SUBJECTIVE: The patient is in Behavioral Care Unit. He is in room 518, bed 1. He was admitted with depression, altered mental state, dementia, and agitation. PHYSICAL EXAMINATION: VITAL SIGNS: The patient's vital signs this morning, the pulse is 60, blood pressure 130/75, respirations are 20 per minute. HEENT: Head is normocephalic. LUNGS: Clear. HEART: Normal sinus rhythm. ABDOMEN: Soft. Liver and spleen not palpable. CENTRAL NERVOUS SYSTEM: He has no neurological deficits. The patient has evidence of dementia associated with altered mental state and bipolar disorder and schizophrenia. MEDICATIONS: He is on medications, which consist of hydralazine for blood pressure with amlodipine. The patient is also on Risperdal and Aricept. Risperdal for agitation, Aricept for dementia. PLAN: The patient's diet is 2 g sodium heart-healthy diet. We will continue current management. We will follow up. His blood pressure is under control. Zainab Costello MD
[2017-11-02 16:27] VITALS: BP 118/79; PULSE 69
== END 2017-11-02 17:44 | disposition left against medical advice (07) | DRG 885 ==
LOC: ED 10:08 → ERH 13:49 → PSYC 15:10 → UNDODISIN 11-02 17:44
PROVIDERS: ADMIT Psychiatry & Neurology Addiction Medicine; ATTEND Psychiatry & Neurology Addiction Medicine
DX: F31.9 Bipolar disorder, unspecified (principal); F22 Delusional disorders; F03.90 Unspecified dementia, unspecified severity, without behavioral disturbance, psychotic disturbance, mood disturbance, and anxiety; F20.9 Schizophrenia, unspecified; I10 Essential (primary) hypertension; Z79.899 Other long term (current) drug therapy; R40.2412 Glasgow coma scale score 13-15, at arrival to emergency department; E87.6 Hypokalemia